=== PATIENT | male | born 1930 | race Caucasian/White ===

== ENCOUNTER 2016-10-05 06:19 | Observation (INO) | payer OTHER ==
[2016-09-23 11:26] VITALS: BMI 26.0
--- NOTE | 2016-09-23 12:25 | PAT Medication Instructions ---
Service Date Sep 23, 2016. Current Home Medication List Aspirin (Aspirin Tab-Chewable *), 81 MG PO HS Aspirin (Aspirin), 1 TAB PO QAM Carvedilol (Coreg), 3.125 MG PO BID Cyanocobalamin (Vitamin B-12), 1,000 MCG PO QAM Lisinopril (Prinivil), 2.5 MG PO QAM Pantoprazole (Protonix), 40 MG PO QAM Simvastatin (Zocor), 20 MG PO QPM [Vitamin D3], 1,000 UNITS PO QAM Medication Instructions For Your Scheduled Surgery - Hold the following medications the morning of surgery: [Vitamin D3], 1,000 UNITS PO QAM Cyanocobalamin (Vitamin B-12), 1,000 MCG PO QAM Lisinopril (Prinivil), 2.5 MG PO QAM Carvedilol (Coreg), 3.125 MG PO BID Aspirin (Aspirin), 1 TAB PO QAM - Take the following medications the morning of surgery with a sip of water OTHERWISE NOTHING TO EAT OR DRINK AFTER MIDNIGHT: Pantoprazole (Protonix), 40 MG PO QAM - Take the following medications as scheduled the night before surgery: Simvastatin (Zocor), 20 MG PO QPM Carvedilol (Coreg), 3.125 MG PO BID Aspirin (Aspirin Tab-Chewable *), 81 MG PO HS If you have any questions please call us at [phone] or [phone] or [phone]
[2016-09-23 14:26] LABS: HEMATOCRIT 43.5 % (42-52); MEAN CORPUSCULAR HEMOGLOBIN 30.3 pg (25-34); MEAN CORPUSCULAR HGB CONC 33.3 g/dl (32-36); MEAN PLATELET VOLUME 10.2 fL (7.4-10.4); PLATELET COUNT 235 K/uL (130-400); RED BLOOD COUNT 4.78 M/uL (4.7-6.1); WHITE BLOOD COUNT 4.96 K/uL (4.8-10.8)
[2016-09-23 14:36] LABS: BUN/CREATININE RATIO 13.1 (10-20); CREATININE 1.4 mg/dl (0.60-1.40); POTASSIUM 4.5 mmol/L (3.5-5.1)
[2016-09-23 14:39] LABS: INR 1.1 (0.9-1.1); PARTIAL THROMBOPLASTIN RATIO 1.1; PROTHROMBIN TIME (PATIENT) 11.9 SECONDS (9.0-12.0)
[2016-09-23 14:54] LABS: CALCIUM 9.4 mg/dl (8.5-10.1)
[2016-10-05] VITALS (8 sets, daily range): BP systolic 101–169; BP diastolic 59–96; PULSE 49–96; TEMP 36.5–37.4; O2SAT 90–99; Ht 182.9 cm; Wt 84.9 kg
[~2016-10-05] VITALS: Ht 182.9 cm; Wt 84.9 kg
[~2016-10-05 06:19] MED LIST: ASPCH81 PO; ASPI-470 PO; CARV3.122 PO; CEFAZOLIN 2000 MG/60 ML D5W IV SCH; CYAN10005 PO; LACTATED RINGER'S 1000ML 1,000 ML IV SCH; LISI-729 PO; PANT40TA PO; SIMV20TA2 PO; VITAMIN D3 PO
--- NOTE | 2016-10-05 07:46 | HISTORY & PHYSICAL EXAMINATION ---
DATE OF ADMISSION: 10/05/2016 HISTORY OF PRESENT ILLNESS: This is an 86-year-old gentleman, who has been having more dyspnea on exertion and lower extremity edema. He denies any lightheadedness and dizziness since cutting back his Coreg. He has nonischemic cardiomyopathy with an ejection fraction drop into 23%, left bundle branch block and he has been referred for biventricular device. PAST MEDICAL HISTORY: Nonischemic cardiomyopathy, left bundle branch block, chronic systolic congestive heart failure, [place] Heart Association class 3, sinus bradycardia, chronic kidney disease stage 3, hypertension, hyperlipidemia, abdominal aortic aneurysm, mixed Alzheimer's dementia, hereditary hemochromatosis and hearing loss. PAST SURGICAL HISTORY: Tonsils and adenoidectomy. CURRENT MEDICATIONS: Carvedilol 3.125 mg twice a day, Protonix, simvastatin, lisinopril, aspirin, vitamin D, vitamin B12 and Tylenol. ALLERGIES: No known drug allergies. FAMILY HISTORY: Noncontributory. SOCIAL HISTORY: He is a former tobacco smoker. No alcohol use. REVIEW OF SYSTEMS: All other 10 point review of systems were reviewed and essentially negative at this time. See HPI for pertinent positives. PHYSICAL EXAMINATION: VITAL SIGNS: Blood pressure 169/86, heart rate 48. GENERAL: He is awake, alert and oriented x3, in no acute distress, sitting up on the stretcher. HEENT: Normocephalic, atraumatic. Extraocular motions are intact. Sclerae is nonicteric. Mucous membranes are moist. NECK: Supple, no carotid bruits appreciated. No JVD. CARDIOVASCULAR: Normal S1, S2. Regular rhythm, bradycardic, extrasystole are present, no murmurs appreciated. Pulses are intact. PULMONARY: Clear to auscultation bilaterally. No wheezes, rales or rhonchi. ABDOMEN: Positive bowel sounds, soft, nontender, nondistended. EXTREMITIES: No clubbing or cyanosis in bilateral fingers. Trace lower extremity edema. NEUROLOGIC: Grossly intact. SKIN: Grossly intact. PERTINENT TESTING: EKG on 08/26/2016; sinus layton at 45 beats per minute, first degree AV block and left bundle branch block. EKG on 02/04/2016; sinus layton 66 beats per minute, first degree AV block, PVCs, QRS 154 milliseconds. Echocardiogram in July 2016; patient with sinus layton with frequent PVCs. His ejection fraction was 23%, left atrium severely enlarged, mild aortic valvular sclerosis, but no stenosis, moderate MR, mild TR, moderate pulmonary hypertension with pulmonary artery systolic pressure 50-55. Holter monitor in August 2016; sinus with bundle branch block and PVCs, two short runs of PAT; the longest was 4 beats. The longest R-R interval was 2 seconds. Cardiac catheterization in 2010; left main was okay, LAD mid 50%, distal 30%, OM1 60%, RCA with luminal irregularities. Most recent CBC is unremarkable, it was in last month. CMP; BUN 18, creatinine 1.5, sodium 142, potassium 4.3, chloride 105, carbon dioxide 25 and glucose 113. IMPRESSION: 1. Nonischemic cardiomyopathy diagnosed years recovered with medications but medications stopped due to bradycardia, and now with an ejection fraction drop to 23%. 2. Left bundle branch block. 3. Chronic systolic heart failure, [place] Heart Association class 3. 4. Sinus bradycardia. 5. Chronic kidney disease stage 3. 6. Hypertension. 7. Hyperlipidemia. 8. Abdominal aortic aneurysm. 9. Alzheimer's disease. 10. Hereditary hemochromatosis Recommend a biventricular device. The patient wishes to do a pacemaker. He understands the risks of the procedure which include; but not limited to sudden cardiac , cardiac arrhythmias, cerebrovascular accident, myocardial infarction, injury to the blood vessels, chamber of the heart, bleeding and infection. KAVITA
[2016-10-05] MEDS ORDERED: BUPIVACAINE 0.5 % 5 MG/1 ML MPF 30ML VIAL ONE (07:57)
[2016-10-05] MEDS ORDERED: MIDAZOLAM HCL 1 MG/ML 2ML VIAL ONE (07:57)
[2016-10-05] MEDS ORDERED: LIDOCAINE HCL 1% 20 ML VIAL ONE (07:57)
[2016-10-05] MEDS ORDERED: FENTANYL CITRATE INJ 50 MCG/1 ML 2 ML VIAL ONE ×3 (07:57→11:09)
[2016-10-05] MEDS ORDERED: PROPOFOL IV EMULSION 10 MG/ML 20 ML VIAL IV ONE (07:57)
[2016-10-05] MEDS ORDERED: KETAMINE HCL INJ 50 MG/ML 10 ML VIAL ONE (07:58)
[2016-10-05] MEDS ORDERED: PROPOFOL IV EMULSION 10 MG/ML 100 ML VIAL IV ONE (08:25)
[2016-10-05] MEDS ORDERED: BACITRACIN 50000 UNIT VIAL ONE (08:44)
[2016-10-05] MEDS ORDERED: ACETAMINOPHEN/CODEINE 300/30MG TAB PO PRN (12:00)
[2016-10-05] MEDS ORDERED: ACETAMINOPHEN 325 MG TAB PO PRN (12:00)
[2016-10-05] MEDS ORDERED: ATROPINE SULFATE 0.1 MG/ML 5ML SYR IV PRN (12:15)
[2016-10-05] MEDS ORDERED: FENTANYL CITRATE INJ 50 MCG/1 ML 2 ML VIAL IV PRN (12:15)
[2016-10-05] MEDS ORDERED: ONDANSETRON INJ 2 MG/ML 2 ML VIAL IV PRN (12:15)
[2016-10-05] MEDS ORDERED: LABETALOL HCL IV 5 MG/ML 20ML IV PRN (12:15)
--- NOTE | 2016-10-05 12:15 | Discharge Instructions ---
Discharge Instructions Date of Service Oct 05, 2016. Admission Reason for Admission: Non Ischemic Cardiomyopathy; Lt Bundle Branch Bloc Discharge Discharge Diagnosis / Problem: NICM Discharge Goals Goal(s): Improve function Activity Recommendations Activity Limitations: as noted below Lifting Limitations: no more than 10 pounds (DO NOT LIFT THE LEFT ELBOW OVER THE LEFT SHOULDER FOR 1 MONTH DO NOT LIFT MORE THAN 10 POUNDS WITH THE LEFT ARM FOR 2 WEEKS) Shower/Bathe: tomorrow Driving or Machine Use: resume 1 day after discharge . Instructions / Follow-Up Instructions / Follow-Up ACTIVITY RECOMMENDATIONS: * Do not raise affected arm over head for 4 weeks. SPECIAL CARE INSTRUCTIONS: * If bleeding occurs, apply direct pressure to area for 5 minutes. * Call your doctor if you have severe pain, fever, drainage or bleeding at site. * Keep dry for 24 hours. * Keep any scheduled doctor's appointment. * Implant Card - hand held device with website information given. SKIN IRRITATION: * You may experience some redness and/or swelling in the area where radiation was administered. If any skin irritation occurs, please contact your family physician. FOLLOW UP VISIT: Keep any scheduled doctor appointments. Current Hospital Diet Patient's current hospital diet: AHA Diet (Heart Healthy), Low Sodium Diet (2gm Na) Discharge Diet Recommended Diet: AHA Diet (Heart Healthy), Low Sodium Diet (2gm Na) Procedures Procedures Performed: BIVENTRICULAR PERMANENT PACEMAKER Pending Studies Studies pending at discharge: no Medical Emergencies . Who to Call and When: Medical Emergencies: If at any time you feel your situation is an emergency, please call 911 immediately. . Non-Emergent Contact Non-Emergency issues call your: [employer] . . "Provider Documentation" section prepared by Annie Williamson. . VTE Core Measure Inpt VTE Proph given/why not?: Treatment not indicated
--- NOTE | 2016-10-05 12:19 | Discharge Summary ---
Discharge Summary Date of Service Oct 05, 2016. Discharge Summary Admission Date: Discharge Date: Oct 06, 2016 Discharge Disposition: Home Principal Diagnosis: NICM S/P BIVENTRICULAR PACEMAKER Secondary Diagnoses/Problems: 1. LBBB 2. Chronic systolic HF, NYHA Class III 3. Marked Sinus bradycardia 4. HTN 5. HLD 6. AAA 7. CKD stage III 8. Alzheimer dementia 9. Hereditary Hemochromatosis Procedures: biventricular permanent pacemaker under fluoroscopic guidance with peripheral venogram Medication Reconciliation New Medications: Carvedilol (Carvedilol) 3.125 Mg Tab 6.25 MG PO BID for 30 Days, #120 TAB Continued Medications: Aspirin (Aspirin Tab-Chewable *) 81 Mg Chew 81 MG PO HS, 0 Refills Cyanocobalamin (Vitamin B-12) 1,000 Mcg Tab 1000 MCG PO QAM, 0 Refills Lisinopril (Prinivil) 5 Mg Tab 2.5 MG PO QAM, TAB Pantoprazole (Protonix) 40 Mg Tab 40 MG PO QAM, #30 TAB Simvastatin (Zocor) 20 Mg Tab 20 MG PO QPM, 0 Refills [Vitamin D3] () 1000 UNITS PO QAM Discontinued Medications: Aspirin (Aspirin) 325 Mg Tab 1 TAB PO QAM Carvedilol (Coreg) 3.125 Mg Tab 3.125 MG PO BID, TAB takes with breakfast and lunch Admission Information Physical Exam (per Admitting): aaox3, NAD NC/AT, EOMI Supple, No JVD Bradycardic, NRL S1/S2 CTA b/l no w/r/r soft NT/ND No edema b/l No focal deficits skin intact Hospital Course Pt admitted for elective biventricular pacemaker implant. Underwent procedure without any complications; monitored overnight and discharged home in stable condition. Total time spent on discharge = This includes examination of the patient, discharge planning, medication reconciliation, and communication with other providers. Discharge Instructions ACTIVITY RECOMMENDATIONS: * Do not raise affected arm over head for 4 weeks. SPECIAL CARE INSTRUCTIONS: * If bleeding occurs, apply direct pressure to area for 5 minutes. * Call your doctor if you have severe pain, fever, drainage or bleeding at site. * Keep dry 24 hours then remove. * Keep any scheduled doctor's appointment. * Implant Card - hand held device with website information given. SKIN IRRITATION: * You may experience some redness and/or swelling in the area where radiation was administered. If any skin irritation occurs, please contact your family physician. FOLLOW UP VISIT: Keep any scheduled doctor appointments.
[2016-10-05] MEDS ORDERED: CRG3125 PO (12:20)
--- NOTE | 2016-10-05 13:34 | Anesthesiology Progress Note ---
Anesthesia Post Op Note Date & Time Oct 05, 2016 at 13:34 Vital Signs Pain Intensity: 0 Vital Signs Past 12 Hours Date Time Temp Pulse Resp B/P (MAP) Pulse Ox O2 Delivery O2 Flow Rate FiO2 10/05/16 12:45 Room Air 10/05/16 12:45 96 18 157/96 (116) 91 Room Air 10/05/16 12:18 70 18 125/72 (89) 95 Room Air 10/05/16 12:08 70 18 153/102 (119) 99 Mask 6 10/05/16 11:58 72 18 139/97 (111) 98 Mask 6 10/05/16 06:25 36.5 49 20 169/86 (113) 99 Room Air Notes Mental Status: alert / awake / arousable, participated in evaluation Pt Amnestic to Procedure: Yes Nausea / Vomiting: adequately controlled Pain: adequately controlled Airway Patency, RR, SpO2: stable & adequate BP & HR: stable & adequate Hydration State: stable & adequate Anesthetic Complications: no major complications apparent
[2016-10-05] MEDS ORDERED: IV FLUIDS COMPLETED PRN (13:45)
--- NOTE | 2016-10-05 16:27 | OPERATIVE REPORT ---
DATE OF OPERATION: 10/05/2016 PREOPERATIVE DIAGNOSIS: Nonischemic cardiomyopathy, left bundle branch block, chronic systolic heart failure, [place] Heart Association class 3, marked sinus bradycardia. POSTOPERATIVE DIAGNOSIS: Same. PROCEDURE: Biventricular rate responsive permanent pacemaker under fluoroscopic guidance along with peripheral venogram. SURGEON: Dr. Annie Williamson. MILL RECORDER: None. ANESTHESIA: Monitored anesthetic care given via anesthesiology. Total of 2 mg of Versed, 300 mcg of fentanyl, 650 mg of propofol. Again, this was all under anesthesia, so they will do the billing. IV FLUIDS: 1150 mL. CONTRAST: 60 mL. BLOOD LOSS: 50 mL. COMPLICATIONS: None. CONDITION: Stable. URINE OUTPUT: Not applicable. FINDINGS: None. DRAINS: None. INDICATIONS: This is a 86-year-old male with nonischemic cardiomyopathy diagnosed actually years ago and then improved with medications; however, we had to slowly start bringing back medication because sinus bradycardia and now his cardiomyopathy has recurred with EF being 23%, left bundle branch block, chronic systolic heart failure, [place] Heart Association class 3, marked sinus bradycardia, chronic kidney disease stage III, hypertension, hyperlipidemia, abdominal aortic aneurysm, Alzheimer's dementia and hereditary hemochromatosis. The patient was recommended biventricular device. He opted for pacemaker as opposed to the defibrillator due to his advanced age. CONSENT: Consent was obtained prior to patient going into the electrophysiology lab. The patient was informed of risks, benefits and alternatives to the procedure. Risks include but not limited to sudden cardiac , cardiac arrhythmias, cerebrovascular accident, myocardial infarction, injury to the blood vessels, chamber of the heart, lungs, bleeding or infection. The patient understood these risks and agreed to the procedure as planned. Informed consent was obtained. DESCRIPTION OF THE PROCEDURE: The patient was brought into the electrophysiology lab in a fasting state. He was connected to continuous patient monitor. A time out was performed to ensure patient's identity and procedure correctly. The patient was prepped and draped over the left infraclavicular space in normal surgical standard fashion. Monitored anesthetic care was given throughout the procedure for patient's comfort level via anesthesiology. [place] precautions were maintained throughout procedure. He received prophylactic antibiotics prior to incision. Ten mL of 1% lidocaine, bupivacaine mixture were given in the left deltopectoral groove. Incision was made in left deltopectoral groove. Blunt dissection was performed down to identify the cephalic vein. The cephalic vein was isolated using 0 silk ties. A peripheral venogram was performed using 10 mL of IV contrast diluted in 10 mL of saline followed by 20 mL flush to identify the axillary vein. Axillary vein was obtained via a venous stick and a guidewire was inserted without any resistance. I then went back to the cephalic vein, nicked it with an 11 blade and inserted guidewire without any resistance. A 7-Samoan long sheath was inserted over the guidewire without any resistance. I used long sheath since the vein was kind of torturous. The dilator was removed and a second guidewire was inserted through the 7-Samoan sheath without any resistance. The sheath was removed and an 8-Samoan short sheath was inserted over one of the guidewires in the cephalic vein without any resistance. The guidewire and dilator were removed. The right ventricular pacing lead was then advanced into the right ventricle and positioned into the right ventricular apex under fluoroscopic guidance. There was adequate pacing and sensing thresholds and no diaphragmatic stimulation with high output pacing. The 8-Samoan sheath was peeled away and lead was fixated to the pectoralis muscle using 0 silk sutures. A second 8-Samoan sheath was inserted over the retained guidewire and the cephalic vein, guidewire and dilator were removed. A right atrial pacing lead was advanced into the right atrium and positioned atrial appendage. Initially, with preformed blue J then ultimately got in with nelson J. There was adequate pacing and sensing thresholds and no diaphragmatic stimulation with high output pacing. The 8-Samoan sheath was peeled away and lead was fixated to pectoralis muscle using 0 silk suture. A 9.5-Samoan sheath was then inserted over the retained guidewire via the axillary vein. The guidewire and dilator removed. Initially we used an MPX command outer sheath and advanced that into the right atrium, removed the dilator and guidewire and then used a diagnostic EP coronary sinus quadripolar Decapolar catheter to get into the CS. There was a sharp acute takeoff from the RA to the CS and it actually looked like there may have a bail-out branch very low. I had a difficult time getting the Medtronic MPX command sheath advanced over the EP diagnostic catheters so I ended up switching that out to an extended hook. We did a peripheral venogram in MACEDONIAN, CHAVEZ and AP and found posterolateral branch but there was an acute angle takeoff. I tried to cannulate it with a Whisper wire as well as using an inner 90 sheath, but I could not and ultimately I ended up moving coronary sinus accessed and ended up finding that bailout branch and used that instead. The lead was advanced through the outer extended hook sheath into the bailout branch with a stylette in the lead. I then also took the stylet out and used a Whisper wire through the lead to see if the branch went out any further, it did not. We had adequate pacing and sensing thresholds and no diaphragmatic stimulation. During trying to get the coronary sinus, the right atrial lead did dislodged, so I left the sheath fall in for the LV pacing lead and went back to the RA lead. I removed the sutures from the suture sleeve and repositioned the right atrial lead with adequate pacing and sensing thresholds and resutured it down using 0 silk suture. I then went back to the LV lead and slit the extended hook outer sheath under fluoroscopic guidance, followed then by peeled away and split 9.5-Samoan outer sheath under fluoroscopic guidance. The LV lead was then fixated to the pectoralis muscle using 0 silk suture. There was some backbleeding and so I did have pursestring through both venipuncture sites. I then gave another 10 mL of 1% lidocaine, bupivacaine mixture in the pectoralis fascia then using blunt dissection created the pacemaker pocket within the pectoralis fascia over the pectoralis muscle, flushed the pocket with copious amounts of bacitracin saline wash and inspected for hemostasis. The pulse generator was then attached to the leads making sure that the pins were in appropriate position, passed the set screws and the set screws were all tightened. The pulse generator was then placed in the pocket, making sure that the leads were lying flat beneath the device. A stay stitch using 0 silk suture was used to secure the device to the pectoralis muscle. I did put Aristastat in the pocket to prevent any further oozing and the incision was then closed in 3-layer fashion, 2-0 Vicryl suture followed by a 3-0 Vicryl suture followed by a 4-0 Monocryl running stitch. Dermabond was applied followed then by a pressure dressing. EQUIPMENT: 1. Pulse generator is a [employer]look [id number], serial #[id number]. 2. Right atrial lead Medtronic 5076-52 cm, serial #[id number]. 3. Right ventricular lead Medtronic 5076-58 cm, serial #[id number]. 4. Left ventricular lead Medtronic 4296-88 cm, serial #[id number]. INTRAOPERATIVE TESTIN. Right atrial lead P-waves 4.9 millivolts, impedance 537 ohms, threshold 0.6 volts at 1.1 milliamps. 2. Right ventricular lead R-waves 8.9 millivolts, impedance 411 ohms, threshold 0.4 volts at 0.3 milliamps. 3. Left ventricular lead programmed bipolar LV tip to LV ring, impedance 980 ohms, threshold 1.4 volts at 1.6 milliamps. FINAL MEASUREMENTS THROUGH THE DEVICE 1. Right atrial lead: P-waves 4.4 millivolts, impedance 418 ohms, threshold 0.5 volts at 0.4 milliseconds. 2. Right ventricular lead: R-waves 11.8 millivolts, impedance 741 ohms, threshold 0.5 volts at 0.4 milliseconds. 3. LV lead program bipolar LV tip to LV ring, impedance 798 ohms, threshold 1.75 volts at 0.4 milliseconds. FINAL PARAMETERS: 1. DDDR 60/130. Right atrial amplitude 3.5 volts, pulse width 0.4 milliseconds, sensitivity 0.3 millivolts. 2. Right ventricular amplitude 3.5 volts, pulse width 0.4 milliseconds, sensitivity 0.9 millivolts 3. Left ventricular amplitude 4, pulse width 0.4. IMPRESSION: Successful implantation rate responsive biventricular permanent pacemaker under fluoroscopic guidance secondary to nonischemic cardiomyopathy, left bundle branch block, chronic systolic congestive heart failure, [place] Heart Association class 3, sinus bradycardia. PLAN: Monitor patient overnight, 12-lead ECG, chest x-ray. He can continue his home medications. We will increase his carvedilol to 6.25 now that he has a pacemaker. He is not allowed to lift the left elbow over the left shoulder for 1 month and cannot lift more than 10 pounds with the left arm for 2 weeks. He can shower tomorrow, let water run over the incision, do not scrub it. He should follow up in our [facility] office for device check in 7-10 days. I attest to the content of the Intraoperative Record and any orders documented therein. Any exceptions are noted below. KAVITA
--- NOTE | 2016-10-05 16:46 | [facility] Post Operative Brief Note ---
Immediate Operative Summary Operative Date Oct 05, 2016. Pre-Operative Diagnosis nicm, lbbb, chronic systolic HF Post-Operative Diagnosis oren Procedure(s) Performed BIVENTRICULAR PERMANENT PACEMAKER Surgeon silvestre williamson [employer] Supervisor Surgeon(s) none Estimated Blood Loss 50cc Findings none Fluids (cc crystalloids) 1155cc Specimens none Drains none Anesthesia 2mg versed, 300mcg fentanyl, 650mg propofol Complication(s) None Disposition PCU
[2016-10-05] MEDS: CARVEDILOL 6.25 MG TAB PO SCH (20:33)
[2016-10-05] MEDS ORDERED: SIMVASTATIN 20 MG TAB PO SCH (21:00)
[2016-10-05] MEDS ORDERED: ASPIRIN 81 MG ECTAB PO SCH (21:00)
[2016-10-06 03:55] VITALS: BP 135/66; PULSE 69; TEMP 37.3; O2SAT 90
--- NOTE | 2016-10-06 07:45 | DIAGNOSTIC IMAGING REPORT ---
CHEST 2 VIEWS ROUTINE HISTORY: EXACT TIME ORDERED Evaluate for pneumothorax and lead placement COMPARISON: Chest 02/05/2011. FINDINGS: Interval placement left-sided pacemaker. The leads appear intact. No pneumothorax. The cardiac silhouette is top normal in size. This has improved. Left basilar linear densities consistent with subsegmental atelectasis. No evidence for pulmonary edema. Trace bilateral pleural effusions. IMPRESSION: Interval placement left-sided pacemaker. The leads are intact. No pneumothorax. Trace bilateral pleural effusions. Electronically signed by: Harshal Motley M.D. 10/06/2016 7:44 AM Dictated Date/Time: 10/06/2016 7:42 AM
[2016-10-06] MEDS: CARVEDILOL 6.25 MG TAB PO SCH (07:48)
[2016-10-06 07:54] VITALS: BP 134/77; PULSE 62; TEMP 36.8; O2SAT 93
--- NOTE | 2016-10-06 08:39 | Cardiology Follow-Up ---
Subjective Subjective Date of Service: Oct 06, 2016. Pt evaluation today including: conversation w/ patient, physical exam, chart review, lab review Pain: none Review of Systems Constitutional: No fever, No fatigue Respiratory: No dyspnea on exertion, No dyspnea at rest Cardiac: No chest pain, No edema Abdomen: No diarrhea Endo: No fatigue Objective Vital Signs Last Vital Signs Documentation Date Time Temp Pulse Resp B/P (MAP) Pulse Ox O2 Delivery O2 Flow Rate FiO2 10/06/16 07:54 36.8 62 16 134/77 (96) 93 Room Air 10/05/16 12:08 6 Physical Exam: General Appearance: WD/WN Eyes: bilateral eyes PERRL, bilateral eyes EOMI Neck: supple, no JVD Respiratory/Chest: lungs clear, normal breath sounds Cardiovascular: regular rate, rhythm, no edema, no murmur Abdomen: normal bowel sounds, non tender Extremities: no pedal edema Neurologic/Psychiatric: alert Skin: warm/dry, no rash (left pectoral incision intact, no hematoma, mild ecchymosis) Assessment and Plan Impression: 1. NICM s/p BiV ppm 10/05/2016 2. LBBB 3. Chronic systolic HF, NYHA Class III 4. HTN 5. HLD Plan: -Ok for discharge home today -Continue home medications -Not allowed to left the left elbow over the left shoulder for 1 month and no lifting more than 10 pounds with the left arm for 2 weeks -Wound and device check in 7-10 days in [facility] device clinic -can shower tomorrow Discharge planning: home Medications: Medications Administered Medications (Trade) Dose Ordered Sig/Raheel Route Start Time Stop Time Status Last Admin Dose Admin Cefazolin Sodium 60 ml @ 100 mls/hr PREOP IV 10/05/16 06:00 10/05/16 18:00 DC 10/05/16 08:08 100 MLS/HR Acetaminophen (Tylenol Tab) 650 mg Q4H PRN PO 10/05/16 12:00 11/04/16 11:59 10/06/16 06:06 650 MG Carvedilol (Coreg Tab) 6.25 mg BID PO 10/05/16 21:00 11/04/16 20:59 10/05/16 20:33 6.25 MG Simvastatin (Zocor Tab) 20 mg QPM PO 10/05/16 21:00 11/04/16 20:59 10/05/16 20:33 20 MG Lab Results: Telemetry:BiV Paced ECG:BiV Paced CXR: no PTX, RA, RV, LV leads in place PPM Interrogation: Normal function Stable and WNL lead testing from implant
[2016-10-06] MEDS ORDERED: PANTOprazole SOD 40 MG TAB PO SCH (09:00)
[2016-10-06] MEDS ORDERED: CYANOCOBALAMIN 500 MCG TAB (VIT B-12) PO SCH (09:00)
[2016-10-06] MEDS ORDERED: ASPIRIN 81 MG ECTAB PO SCH (09:00)
[2016-10-06] MEDS ORDERED: LISINOPRIL 2.5 MG TAB PO SCH (09:00)
[2016-10-06 09:11] VITALS: BP 134/77; PULSE 62; TEMP 36.8; O2SAT 93
--- NOTE | 2016-10-06 09:24 | Anesthesiology Progress Note ---
Anesthesia Post Op Note Date & Time Oct 06, 2016 at 09:20 Vital Signs Pain Intensity: 0.0 Vital Signs Past 12 Hours Date Time Temp Pulse Resp B/P (MAP) Pulse Ox O2 Delivery O2 Flow Rate FiO2 10/06/16 09:11 36.8 62 16 93 Room Air 10/06/16 08:00 Room Air 10/06/16 07:54 36.8 62 16 134/77 (96) 93 Room Air 10/06/16 04:00 Room Air 10/06/16 03:55 37.3 69 18 135/66 (89) 90 Room Air 10/06/16 00:00 Room Air 10/05/16 23:41 37.2 78 16 117/68 (84) 90 Room Air Notes Mental Status: alert / awake / arousable, participated in evaluation Anesthetic Complications: no major complications apparent
== END 2016-10-06 10:13 | disposition home or self-care (01) ==
LOC: C.ACU 06:19 → ENRESERV 11:49 → C.2T 12:02
PROVIDERS: ADMIT Internal Medicine; ATTEND Internal Medicine
DX: I42.9 Cardiomyopathy, unspecified (principal); I44.7 Left bundle-branch block, unspecified; I50.22 Chronic systolic (congestive) heart failure; R00.1 Bradycardia, unspecified; I12.9 Hypertensive chronic kidney disease with stage 1 through stage 4 chronic kidney disease, or unspecified chronic kidney disease; E78.5 Hyperlipidemia, unspecified; I71.4 Abdominal aortic aneurysm, without rupture; N18.3 Chronic kidney disease, stage 3 (moderate); G30.9 Alzheimer's disease, unspecified; F02.80 Dementia in other diseases classified elsewhere, unspecified severity, without behavioral disturbance, psychotic disturbance, mood disturbance, and anxiety; E83.110 Hereditary hemochromatosis; Z79.82 Long term (current) use of aspirin

== ENCOUNTER 2018-07-17 14:06 | Inpatient (IN) ==
[2018-07-17] MEDS ORDERED: SODIUM CHLORIDE 0.9% 1000ML 1,000 ML IV SCH (14:30)
[2018-07-17 14:45] LABS: Basophils # (auto) 0.01 K/uL (0-0.2); Basophils % (auto) 0.1 %; Hematocrit (blood only) 47.7 % (42-52); Hemoglobin 16.6 g/dL (14.0-18.0); Immature Granulocytes # (auto) 0.04 K/uL (0.00-0.02); Immature Granulocytes % (auto) 0.3 %; Lymphocytes # (auto) 0.97 K/uL (1.2-3.4); Lymphocytes % (auto) 7.9 %; Mean Corpuscular Hgb Conc 34.8 g/dL (32-36); Mean Corpuscular Volume 90.2 fL (80-100); Mean Platelet Volume 10.1 fL (7.4-10.4); Monocytes # (auto) 0.66 K/uL (0.11-0.59); Monocytes % (auto) 5.4 %; Neutrophils # (auto) 10.58 K/uL (1.4-6.5); Neutrophils % (auto) 86.3 %; Platelet Count 201 K/uL (130-400); RDW Coefficient of Variation 13.3 % (11.5-14.5); RDW Standard Deviation 43.9 fL (36.4-46.3); Red Blood Count 5.29 M/uL (4.7-6.1); White Blood Count 12.26 K/uL (4.8-10.8)
--- NOTE | 2018-07-17 15:05 | CT Scan Report ---
CT SCAN OF THE BRAIN WITHOUT IV CONTRAST CLINICAL HISTORY: Fall. COMPARISON STUDY: MRI of the brain dated 03/01/2007. TECHNIQUE: Unenhanced axial CT scan of the brain is performed from the vertex to the skull base. A do se lowering technique was utilized adhering to the principles of ALARA. CT DOSE: 1113.68 mGy.cm FINDINGS: Brain parenchyma: There are age-related involutional changes noting mild subcortical and periventric ular microangiopathic change. A chronic lacunar infarct is identified in the left cerebellar hemisphe re. There is a 6 mm hyperdense focus identified in the right cerebellum seen on image #6. There is no mass effect or evidence of acute territorial ischemia by CT criteria. Roach-white matter differentiat ion is preserved. No extra-axial fluid collection is seen. Ventricles, sulci, cisterns: Prominent secondary to involutional change. Intracranial vasculature: There is atherosclerotic calcification of the cavernous carotid and vertebr al arteries. Calvarium: The skeletal structures are osteopenic. No depressed calvarial fracture is identified. Sinuses and mastoids: There is mucosal thickening with subtotal opacification of the right frontal si nus. Thickening is also seen within the anterior right ethmoid sinuses. The remaining paranasal sinus es are clear. The mastoid air cells are well pneumatized. Orbits: The bony orbits are grossly intact. IMPRESSION: 1. There is a 6 mm hyperdense focus identified within the right cerebellar hemisphere. This is indete rminant and concerning for a small focus of hemorrhage. 24 hour follow-up is recommended for reassess ment. 2. No additional findings are concerning for acute hemorrhage. There is no mass effect or evidence of acute territorial ischemia by CT criteria. Electronically signed by: Evangelista Almaraz M.D. 07/17/2018 3:04 PM
[2018-07-17 15:06] LABS: Albumin Level 3.3 gm/dl (3.4-5.0); BUN Creatinine Ratio 17.5 (10-20); Calcium 9.3 mg/dl (8.5-10.1); Creatinine Clr Calc Pharmacy 38.3 ml/min; Est GFR (African American) 48.2; Est GFR (Non-African American) 41.6; Potassium 4.3 mmol/L (3.5-5.1)
--- NOTE | 2018-07-17 15:13 | CT Scan Report ---
CT SCAN OF THE CERVICAL SPINE CLINICAL HISTORY: Trauma. Fall. COMPARISON STUDY: No priors. TECHNIQUE: CT scan of the cervical spine is performed from the skull base to the upper thoracic spine . Images are reviewed in the axial, sagittal, and coronal planes. IV contrast was not administered fo r this examination. A dose lowering technique was utilized adhering to the principles of ALARA. FINDINGS: Skeletal structures: The skeletal structures are osteopenic. There is no evidence of fracture or subl uxation involving the cervical spine. Vertebral body height and alignment are maintained. There is p artial fusion of C5, C6, and C7. The odontoid process and lateral masses are intact. The atlantoaxial articulation is preserved noting advanced productive degenerative change. The spinous processes appe ar intact. There is moderate multilevel cervical spondylosis. Uncovertebral and facet arthropathy con tribute sterile foraminal stenosis at several levels. Intervertebral discs: There is moderate multilevel degenerative disc space narrowing. Central canal: Grossly patent. Soft tissues: The prevertebral and paraspinous soft tissues are within normal limits. Pacemaker leads are noted in the left axillary region. Atherosclerotic calcification is noted in the carotid bulbs. Calvarium: The visualized calvarium at the skull base appears intact. Brain parenchyma: There is a subcentimeter hyperdense focus identified in the right cerebellar hemisp here. Age-related involutional change is noted. Sinuses and mastoids: The visualized paranasal sinuses are clear. There are trace mastoid effusions. Lung apices: Clear as visualized. IMPRESSION: 1. There is no evidence of fracture or subluxation involving the cervical spine. 2. Osteopenia and spondylotic change as above. 3. A subcentimeter hyperdense focus is seen in the right cerebellar hemisphere. A small focus of hemo rrhage is not excluded. See report of CT of the brain performed concurrently for detailed intracrania l findings. Electronically signed by: Evangelista Almaraz M.D. 07/17/2018 3:11 PM
[2018-07-17 15:19] LABS: Appearance Urine Clear (Clear); Bacteria Urine Automated Negative (Negative); Bilirubin Urine Negative (Negative); Blood Urine 3+ (Negative); Color Urine Yellow; Epithelial Cell Urine Auto 0-5 /lpf (0-5); Glucose Urine UA Negative (Negative); Ketones Urine Trace (Negative); Leukocyte Esterase Urine Negative (Negative); Nitrite Urine Negative (Negative); Protein Urine 1+ (Negative); RBC Urine Automated 0-4 /hpf (0-4); Specific Gravity Urine 1.023 (1.000-1.030); Urobilinogen Urine Negative (Negative)
[2018-07-17 15:35] LABS: Albumin Globulin Ratio 0.7 (0.9-2); Bilirubin,Total 2.1 mg/dl (0.2-1); Globulin 4.4 gm/dl (2.5-4.0); Total Protein 7.7 gm/dl (6.4-8.2); Troponin I 0.091 ng/ml (0-0.045)
--- NOTE | 2018-07-17 17:18 | XRay Report ---
RIGHT KNEE 2 VIEWS HISTORY: Right knee pain. fall, trauma COMPARISON: None. FINDINGS: There is no fracture or dislocation. No knee effusion. Focal anterior soft tissue swelling which could represent a hematoma. This measures 6.8 cm in size. Moderate cartilage space narrowing wi thin the medial compartment the knee. Faint chondrocalcinosis. The bones are osteopenic. No radiopaqu e foreign bodies. IMPRESSION: No fractures. Focal anterior soft tissue swelling which could represent a subcutaneous hematoma. This measures 6.8 cm. Electronically signed by: Harshal Motley M.D. 07/17/2018 5:16 PM
--- NOTE | 2018-07-17 17:19 | XRay Report ---
THORACIC SPINE 3 VIEWS HISTORY: Back pain. fall, trauma COMPARISON: None. FINDINGS: There is no fracture. No subluxation. Mild discharge scoliosis of the thoracic spine. Para spinal soft tissues are unremarkable. Moderate degenerative disease throughout the thoracic spine. IMPRESSION: No fracture or subluxation within the thoracic spine. Electronically signed by: Harshal Motley M.D. 07/17/2018 5:18 PM
--- NOTE | 2018-07-17 17:21 | XRay Report ---
XR chest 1V portable HISTORY: Fall. weakness COMPARISON: Chest 02/05/2011. FINDINGS: The heart remains enlarged. The lungs are clear. No pleural effusions. No pneumothorax. Lef t-sided pacemaker is again noted. No acute rib fractures. IMPRESSION: Stable cardiomegaly. No acute process within the chest. Electronically signed by: Harshal Motley M.D. 07/17/2018 5:19 PM
--- NOTE | 2018-07-17 17:23 | XRay Report ---
LUMBAR SPINE 3 VIEWS HISTORY: Low back pain. fall, trauma COMPARISON: None. FINDINGS: There is no fracture. No subluxation. The bones are osteopenic. The sacrum appears intact. Moderate to space narrowing at L4-L5 and L5-S1. Mild to moderate facet degenerative changes througho ut the lumbar spine. IMPRESSION: No fracture or subluxation within the lumbar spine. Electronically signed by: Harshal Motley M.D. 07/17/2018 5:22 PM
--- NOTE | 2018-07-17 17:25 | XRay Report ---
SINGLE VIEW PELVIS CLINICAL HISTORY: Fall. FINDINGS: 2 AP supine abdominal radiograph obtained. No prior studies are available for comparison at the time of dictation. The skeletal structures are osteopenic. No fracture is identified involving t he hips or bony pelvis. Moderate arthritic change and joint space narrowing is seen in the hips, righ t greater than left. Lumbosacral spondylosis is partially imaged. There is mild degenerative sclerosi s of the sacroiliac joints. The overlying soft tissues are normal in appearance. Atherosclerotic calc ification is seen in the femoral arteries. Pelvic phlebolith are observed. No bowel obstruction is id entified. IMPRESSION: No acute fracture is identified involving the hips or bony pelvis. Electronically signed by: Evangelista Almaraz M.D. 07/17/2018 5:24 PM
--- NOTE | 2018-07-17 17:51 | History & Physical Report ---
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 In ED patient was found to have elevated creatinine kinase 6490, elevated troponin 0.091, bilirubin to 2.1, AST 152, BUN/creatinine 26 and 1.49, WBC 12.26 Chest x-ray was negative for acute abnormality, urinalysis was negative for infection CT of head was concerning for 6 mm hyperdense right cerebellar lesion questionable small focus of hemorrhage recommending repeat CT in 24 hours. He underwent trauma workup including T-spine x-ray, L-spine x-ray, pelvis x-ray, knee x-ray, C-spine CT which was negative for acute fracture He does have a notable patellar bursitis however, does not appear to be traumatic; not acutely painful In ED he received 1 L IV fluid -Admit to telemetry -Continue IVF 125 cc/h x3L -Repeat CBC, CMP, CK in a.m. -Trend troponin every 6 hours x2 -Repeat CT of head without contrast in a.m. -We will need to consult PT/OT when appropriate -Case management consulted (4) Abnormal CT of brain: -repeat CT scan of head in am. -Dr. Ryan spoke with [facility] neuro which recommended repeat imaging, no further intervention at this time (5) Leukocytosis: -Likely related to acute fall and rhabdo -No infectious etiology apparent at this time, he is afebrile -Chest x-ray was negative for acute abnormality, urinalysis was negative for infection -will follow (6) Dementia: -Mood stable, no behavioral disturbance (7) Systolic CHF, chronic: -EF 26%, secondary to nonischemic cardiomyopathy -Biventricular pacemaker in place -Euvolemic on exam, monitor volume status closely given rhabdo and need for IVF -Continue Coreg, hold lisinopril and atorvastatin in setting of rhabdo (8) NICM (nonischemic cardiomyopathy): -EF 26%, secondary to nonischemic cardiomyopathy -Biventricular pacemaker in place -Euvolemic on exam -Continue Coreg, hold lisinopril and atorvastatin in setting of rhabdo (9) CKD (chronic kidney disease) stage 3, GFR 30-59 ml/min: -Baseline creatinine 1.41.5 -BUN/creatinine 26 and 1.49 today, despite rhabdo no significant change (10) HTN (hypertension): -Blood pressure stable continue Coreg -Lisinopril in setting of acute rhabdo, reinitiate when appropriate (11) HLD (hyperlipidemia): -Hold atorvastatin in setting of acute rhabdomyolysis along with elevated LFT (12) Cardiac pacemaker in situ: -Pacemaker interrogation ordered (13) Monoclonal paraproteinemia: -Follow hematology oncology (14) DVT prophylaxis: -SCD/teds, avoid chemical prophylaxis in setting of questionable small focus of hemorrhage found on CT Disposition: To be determined, will consult case management as patient does live alone and may need rehab Follow-up: PCP Dr. Crespo upon discharge Patient was seen and examined in collaboration with Dr. Peralta, please see addendum Starting 07/18/18 patient will be under the care of Dr. Roman History of Present Illness Chief Complaint: s/p Fall and found in bathtub x 1 day. 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 Son is at bedside. Son lives across the street and patient was last known well approximately 10:30 PM last evening. Son always calls his father approximately at noon and when he did not answer he went over to evaluate the situation. Patient was found to have fallen in bathtub. When found he appeared to have increased confusion and difficulty getting up. EMS was summoned. Son was able to get patient from bathtub. At the time there appeared to be no apparent injuries. He was then brought to ER for further evaluation. Patient ROS slightly unreliable secondary to underlying dementia and hard of hearing. He currently denies any pain, lightheadedness, dizziness, fever, chills, sweats, chest pain, shortness of breath, nausea, vomiting, diarrhea, abdominal pain. He denies any change in his bowel or urinary habits. He did not lose bowel or bladder today. Patient denies loss of consciousness or hitting of head fall was unwitnessed. Allergies Allergy/AdvReac Type Severity Reaction Status Date / Time No Known Allergies Allergy Unverified 07/17/18 16:01 Home Medications Home Medications Medication Instructions Recorded Confirmed Type carvedilol 6.25 mg PO BID 07/17/18 07/17/18 History cholecalciferol (vitamin D3) 1,000 unit PO DAILY 07/17/18 07/17/18 History cyanocobalamin (vitamin B-12) 1,000 mcg PO QAM 07/17/18 07/17/18 History lisinopril 2.5 mg PO DAILY 07/17/18 07/17/18 History simvastatin 20 mg PO DAILY 07/17/18 07/17/18 History Past Med/Surg History Medical History Systolic CHF, chronic (Chronic) AAA (abdominal aortic aneurysm) (Chronic) 4.3cm, stable, follows vasc, no surgical intervention at this time Monoclonal paraproteinemia (Chronic) CKD (chronic kidney disease) stage 3, GFR 30-59 ml/min (Chronic) baseline cr 1.4 Hereditary hemochromatosis (Chronic) HLD (hyperlipidemia) (Chronic) HTN (hypertension) (Chronic) Dementia (Chronic) NICM (nonischemic cardiomyopathy) (Chronic) Surgical History History of tonsillectomy (Chronic) History of cardiac pacemaker (Chronic) Family History Other Family history non-contributory Social History Preferred Language: Israeli Communication Ability: Impaired Communication Ability Comment: dementia Hearing Ability: Hard of Hearing Current Living Situation: Alone Current Living Situation Comment: Son lives across street, walks with cane/walker Feels Safe at Home: Yes Smoking Status: Former smoker Hx Alcohol Use: Yes (double shot of bo nightly) Hx Substance Use: No Review of Systems All systems reviewed & are unremarkable except as noted in HPI & below ROS slightly unreliable given pt hx of dementia Physical Exam Vital Signs (Past 24 Hours): Last Vital Signs Temp 36.5 C 07/17/18 14:19 Pulse 80 07/17/18 16:31 Resp 21 07/17/18 16:31 BP 120/61 07/17/18 16:31 Pulse Ox 94 07/17/18 16:32 Physical Exam: Gen: Elderly, Male, Tall, WD/WN, NAD, sitting up in bed, pleasant, conversing easily Head: Normocephalic, Atraumatic Eyes: Sclera normal, no conjunctival injection, PERRLA, EOMI ENT: Hard of hearing, normal pharynx, mucous membranes moist Neck: supple, no adenopathy, No JVD, no bruit, Resp: Clear to auscultation b/l, no wheeze, rales, rhonchi. Normal insp/exp effort, no accessory muscle use CV: Regular rate, regular rhythm, 1/6 STELLA noted RUSB, Pacer LACW, no rub, gallop, or ectopy Abd: +BS x 4, soft, nontender, nondistended Musculoskeletal: moves extremities active rom x 4, strength intact, good aluminum pourer strength, + R patellar Bursitis, no erythema or warmth Extremities: No edema bilaterally Skin: warm, moist, no rash, negative turgor, cap refill < 2sec, L Scapula contusion Neuro: Alert and oriented x 3 to basics only, speech normal, good mood/affect, cran nerve 2-12 intact grossly : deferred Results & Data Laboratory Results Short CBC 07/17/18 07/17/18 07/17/18 Range/Units 14:30 14:30 14:30 WBC 12.26 H (4.8-10.8) K/uL Hgb 16.6 (14.0-18.0) g/dL Hct 47.7 (42-52) % Plt Count 201 (130-400) K/uL Creatinine 1.49 H (0.6-1.4) mg/dl Troponin I 0.091 H* Cancelled (0-0.045) ng/ml BMP 07/17/18 14:30 Sodium 142 Potassium 4.3 Chloride 109 H Carbon Dioxide 24 BUN 26 H Creatinine 1.49 H Glucose 106 H Calcium 9.3 Cardiac Enzymes 07/17/18 07/17/18 07/17/18 Range/Units 14:30 14:30 14:30 Total Creatine Kinase Cancelled 6498 H Troponin I 0.091 H* Cancelled (0-0.045) ng/ml Liver Function 07/17/18 Range/Units 14:30 Total Bilirubin 2.1 H (0.2-1) mg/dl AST 152 H (15-37) U/L ALT 45 (12-78) U/L Alkaline Phosphatase 89 (45-117) U/L Albumin 3.3 L (3.4-5.0) gm/dl Urine 07/17/18 Range/Units 15:06 Urine Color Yellow Urine Appearance Clear (Clear) Urine pH 5.0 (4.5-7.5) Ur Specific Purdy 1.023 (1.000-1.030) Urine Protein 1+ H (Negative) Urine Glucose (UA) Negative (Negative) Diagnostic Findings CXR: IMPRESSION: Stable cardiomegaly. No acute process within the chest. Tspine Xray: IMPRESSION: No fracture or subluxation within the thoracic spine. Pelvis Xray: IMPRESSION: No acute fracture is identified involving the hips or bony pelvis. Lumbar Spine Xray: IMPRESSION: No fracture or subluxation within the lumbar spine. Knee Xray: IMPRESSION: No fractures. Focal anterior soft tissue swelling which could represent a subcutaneous hematoma. This measures 6.[address]: IMPRESSION: 1. There is a 6 mm hyperdense focus identified within the right cerebellar hemisphere. This is indeterminant and concerning for a small focus of hemorrhage. 24 hour follow-up is recommended for reassessment. 2. No additional findings are concerning for acute hemorrhage. There is no mass effect or evidence of acute territorial ischemia by CT criteria. Cspine CT: IMPRESSION: 1. There is no evidence of fracture or subluxation involving the cervical spine. 2. Osteopenia and spondylotic change as above. 3. A subcentimeter hyperdense focus is seen in the right cerebellar hemisphere. A small focus of hemorrhage is not excluded. See report of CT of the brain performed concurrently for detailed intracranial findings. Medications Administered Discontinued Medications Sodium Chloride (Nss 1000ml) 1,000 mls @ 999 mls/hr IV .[id number] DILLON Stop: 07/17/18 15:30 Last Infusion: 07/17/18 15:45 Dose: 0 mls/hr Documented by: [id number] Admin: 07/17/18 14:40 Dose: 999 mls/hr Documented by: [id number] Code Status & VTE Plan Code Status Full Code VTE Prophylaxis Plan VTE Prophylaxis will be ordered: Yes Supervising Physician Co-Signing Physician Notes Attending addendum; The patient was seen and examined in emergency room Is an 88-year-old male with dementia and other medical problems as mentioned in history and physical was admitted with a history of fall and was found on floor for many hours No apparent fracture on his clinical summary but CAT scan did show possible contusion in the brain CK level is elevated to more than 6000 Patient denies any symptoms On examination Pleasantly confused No apparent distress at rest Hemodynamically stable Chest-clear Heart-S1-S2, 2/6 ESM precordial Abdomen-benign Extremities-trace edema [employer]-alert and, pleasantly confused, no focal motor deficit Admission labs and imaging studies reviewed Has rhabdomyolysis-getting IV fluid Has [employer] contusion-repeat CT scan of the head Agree with assessment and plan as outlined above by Lorie Peralta (1) Dementia Dementia behavioral disturbance: without behavioral disturbance Dementia type: unspecified type Qualified Code(s): F03.90 - Unspecified dementia without behavioral disturbance (2) HLD (hyperlipidemia) Hyperlipidemia type: unspecified Qualified Code(s): E78.5 - Hyperlipidemia, unspecified (3) Leukocytosis Leukocytosis type: other Qualified Code(s): D72.828 - Other elevated white blood cell count (4) Rhabdomyolysis Encounter type: initial encounter Rhabdomyolysis type: traumatic Qualified Code(s): T79.6XXA - Traumatic ischemia of muscle, initial encounter (5) HTN (hypertension) Hypertension type: essential hypertension Qualified Code(s): I10 - Essential (primary) hypertension (6) Fall Encounter type: initial encounter Qualified Code(s): W19.XXXA - Unspecified fall, initial encounter
--- NOTE | 2018-07-17 18:14 | Emergency Department Note ---
Entered by Prosper Shell acting as a scribe for Evangelista Ryan MD History of Present Illness General Chief complaint: Fall Time Seen by Provider: 07/17/18 14:11 Source: patient and family Limitations: other (dementia) History of Present Illness Onset (ago): day(s) (likely last night) Quality: + other (possible unwitnessed fall) Associated symptoms: + other (bruising to arm, bump on right knee) History is limited due to dementia. The patient is an 88 year old male with dementia who presents to the Emergency Room after a possible fall occurring last night. The son reports that the patient lives at home alone, but he checks on him frequently. He was seen at baseline last night at 22:30, at which time he was not dizzy or unsteady, and he was shuffling as usual. When he checked on him again about two hours prior to a rrival, the patient was lying in the bathtub. It appeared that he had drained the bathtub and fallen backward, as he had new bruising on his arm and a bump on his right knee, although he is unsure if the bump on his knee is new. He feels that this probably occurred last night, as his bed was untouched. He states that the patient takes aspirin but no other blood thinners. The patient is a former smoker. The patient notes that he has recently had trouble in his right knee, but he states that it is not painful. Home Medications Home Medications Medication Instructions Recorded Confirmed Type carvedilol 6.25 mg PO BID 07/17/18 07/17/18 History cholecalciferol (vitamin D3) 1,000 unit PO DAILY 07/17/18 07/17/18 History cyanocobalamin (vitamin B-12) 1,000 mcg PO QAM 07/17/18 07/17/18 History lisinopril 2.5 mg PO DAILY 07/17/18 07/17/18 History simvastatin 20 mg PO DAILY 07/17/18 07/17/18 History Allergies Allergy/AdvReac Type Severity Reaction Status Date / Time No Known Allergies Allergy Unverified 07/17/18 16:01 Past Med/Surg History Medical History Systolic CHF, chronic (Chronic) AAA (abdominal aortic aneurysm) (Chronic) 4.3cm, stable, follows vasc, no surgical intervention at this time Monoclonal paraproteinemia (Chronic) CKD (chronic kidney disease) stage 3, GFR 30-59 ml/min (Chronic) baseline cr 1.4 Hereditary hemochromatosis (Chronic) HLD (hyperlipidemia) (Chronic) HTN (hypertension) (Chronic) Dementia (Chronic) NICM (nonischemic cardiomyopathy) (Chronic) Surgical History History of tonsillectomy (Chronic) History of cardiac pacemaker (Chronic) Family History Other Family history non-contributory Social History Preferred Language: Hungarian Communication Ability: Effective 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 Beliefs That Will Affect Care: None Current Living Situation: Alone Current Living Situation Comment: Son lives across street, walks with cane/walker Other Information That Helps Us Care for You: No Feels Safe at Home: Yes Safety Concerns: Feels Safe At This Time Smoking Status: Unknown if ever smoked Hx Alcohol Use: No Hx Substance Use: No Review of Systems Other (Unobtainable due to dementia) Physical Exam Vital Signs Vital Signs - 24 hr 07/17/18 14:19 07/17/18 14:33 07/17/18 15:06 Temperature 36.5 C Temperature Source Oral Sepsis Recent Fever Within 48 Hours No Sepsis Action Taken by Nursing No Action Required Pulse Rate 110 H 74 Pulse Rate from SpO2 Sensor 69 Respiratory Rate 20 19 Respiratory Effort / Characteristics Non-Labored Respiratory Depth Normal Respiratory Pattern Blood Pressure 149/98 H 124/82 Blood Pressure [Left Arm] Blood Pressure Mean 115 96 Blood Pressure Mean [Left Arm] Blood Pressure Position [Left Arm] Pulse Oximetry 95 93 94 Oxygen Delivery Method Room Air Room Air 07/17/18 15:14 07/17/18 15:20 07/17/18 15:30 Temperature Temperature Source Sepsis Recent Fever Within 48 Hours Sepsis Action Taken by Nursing Pulse Rate 77 70 73 Pulse Rate from SpO2 Sensor 69 71 71 Respiratory Rate 15 16 15 Respiratory Effort / Characteristics Respiratory Depth Respiratory Pattern Blood Pressure Blood Pressure [Left Arm] Blood Pressure Mean Blood Pressure Mean [Left Arm] Blood Pressure Position [Left Arm] Pulse Oximetry 93 93 92 Oxygen Delivery Method 07/17/18 15:31 07/17/18 15:40 07/17/18 15:50 Temperature Temperature Source Sepsis Recent Fever Within 48 Hours Sepsis Action Taken by Nursing Pulse Rate 79 72 71 Pulse Rate from SpO2 Sensor 67 69 68 Respiratory Rate 20 16 19 Respiratory Effort / Characteristics Respiratory Depth Respiratory Pattern Blood Pressure 116/79 Blood Pressure [Left Arm] Blood Pressure Mean 91 Blood Pressure Mean [Left Arm] Blood Pressure Position [Left Arm] Pulse Oximetry 92 91 92 Oxygen Delivery Method 07/17/18 16:00 07/17/18 16:01 07/17/18 16:10 Temperature Temperature Source Sepsis Recent Fever Within 48 Hours Sepsis Action Taken by Nursing Pulse Rate 75 79 73 Pulse Rate from SpO2 Sensor 69 64 70 Respiratory Rate 20 20 26 H Respiratory Effort / Characteristics Respiratory Depth Respiratory Pattern Blood Pressure Blood Pressure [Left Arm] Blood Pressure Mean Blood Pressure Mean [Left Arm] Blood Pressure Position [Left Arm] Pulse Oximetry 92 91 Oxygen Delivery Method 07/17/18 16:20 07/17/18 16:30 07/17/18 16:31 Temperature Temperature Source Sepsis Recent Fever Within 48 Hours Sepsis Action Taken by Nursing Pulse Rate 74 80 80 Pulse Rate from SpO2 Sensor 57 L 46 L 40 L Respiratory Rate 15 20 21 Respiratory Effort / Characteristics Respiratory Depth Respiratory Pattern Blood Pressure 115/68 120/61 Blood Pressure [Left Arm] Blood Pressure Mean 83 80 Blood Pressure Mean [Left Arm] Blood Pressure Position [Left Arm] Pulse Oximetry 93 93 94 Oxygen Delivery Method 07/17/18 16:32 07/17/18 17:56 07/17/18 17:57 Temperature Temperature Source Sepsis Recent Fever Within 48 Hours Sepsis Action Taken by Nursing Pulse Rate 82 77 Pulse Rate from SpO2 Sensor 56 L Respiratory Rate 20 15 Respiratory Effort / Characteristics Respiratory Depth Respiratory Pattern Blood Pressure 123/62 Blood Pressure [Left Arm] Blood Pressure Mean 82 Blood Pressure Mean [Left Arm] Blood Pressure Position [Left Arm] Pulse Oximetry 94 Oxygen Delivery Method 07/17/18 17:58 07/17/18 18:00 07/17/18 18:01 Temperature Temperature Source Sepsis Recent Fever Within 48 Hours Sepsis Action Taken by Nursing Pulse Rate 73 80 79 Pulse Rate from SpO2 Sensor Respiratory Rate 19 23 23 Respiratory Effort / Characteristics Respiratory Depth Respiratory Pattern Blood Pressure 108/60 Blood Pressure [Left Arm] Blood Pressure Mean 76 Blood Pressure Mean [Left Arm] Blood Pressure Position [Left Arm] Pulse Oximetry Oxygen Delivery Method 07/17/18 18:10 07/17/18 19:57 07/17/18 20:00 Temperature 36.7 C Temperature Source Oral Sepsis Recent Fever Within 48 Hours Sepsis Action Taken by Nursing Pulse Rate 79 94 H Pulse Rate from SpO2 Sensor Respiratory Rate 16 18 Respiratory Effort / Characteristics Non-Labored Spontaneous Respiratory Depth Normal Respiratory Pattern Regular Blood Pressure Blood Pressure [Left Arm] 137/89 Blood Pressure Mean Blood Pressure Mean [Left Arm] 105 Blood Pressure Position [Left Arm] Lying Pulse Oximetry 94 Oxygen Delivery Method Room Air GENERAL: Patient is in no acute distress. HEENT: Mucous membranes are dry, no facial contusions or swelling, hematoma to the mid-posterior scalp without laceration. NECK: No stridor, no adenopathy, no meningismus, trachea is midline, no cervical spine tenderness. LUNGS: Clear to auscultation bilaterally, no wheeze, no rhonchi, breath sounds equal. HEART: Regular rhythm, mildly tachycardic, no obvious murmur. ABDOMEN: Soft, nontender, bowel sounds positive, no hernias, no peritonitis. BACK: Contusion to the left scapula. BUTTOCKS: There is erythema to the buttock. No contusion, no current skin breakdown. EXTREMITIES: Fluid collection noted in the anterior right knee that is non- tender and not contused. Movement of right knee produces no pain. Movement of hips produces no pain. Contusion forming to the right posterior elbow, no pain with right elbow movement. NEUROLOGIC: Dementia noted. Moves all extremities, awake and alert, follows commands. SKIN: No rash, no jaundice, no diaphoresis. Course 1413: The patient was evaluated in room A10, and a complete history and physical examination were performed. 1541: I consulted Dr. Hannah Perez Neurosurgery. He feels that the area of bleeding found on imaging does not require a transfer, and he should receive a repeat CT tomorrow. 1642: I consulted Lorie John PA-C: [facility] Hospitalist. The patient will be reevaluated for hospitalization. 1650: I updated the patient and family on results. Consultations Consultation #1: I consulted Dr. Hannah Perez Neurosurgery. He feels that the area of bleeding found on imaging does not require a transfer, and he should receive a repeat CT tomorrow. Time: 15:41 Consultation #2: I consulted Lorie John PA-C: [facility] Hospitalist. The patient will be reevaluated for hospitalization. Time: 16:42 Administered Medications Carvedilol (Coreg) 6.25 mg PO BID DILLON Stop: 08/16/18 20:59 Last Admin: 07/17/18 21:02 Dose: 6.25 mg Documented by: [id number] Sodium Chloride (Nss) 500 mls @ 125 mls/hr IV .Q4H DILLON Stop: 07/18/18 08:29 Last Admin: 07/17/18 21:01 Dose: 125 mls/hr Documented by: [id number] Discontinued Medications Sodium Chloride (Nss 1000ml) 1,000 mls @ 999 mls/hr IV .Q1H1M DILLON Stop: 07/17/18 15:30 Last Infusion: 07/17/18 15:45 Dose: 0 mls/hr Documented by: [id number] Admin: 07/17/18 14:40 Dose: 999 mls/hr Documented by: [id number] Medical Decision Making Differential Diagnosis Differential diagnosis: intracranial bleeding, concussion, cervical strain, cervical fracture, lumbar or thoracic fracture, dehydration, rhabdomyolysis, UTI, electrolyte imbalance, renal injury, extremity fracture Medical Records Attestation: I reviewed the patient's medical records. Home Medications Current Medication List: was personally reviewed by me Laboratory Data Attestation: I reviewed the patient's lab results. Result diagrams: 07/17/18 14:30 07/17/18 14:30 Lab Results 07/17/18 07/17/18 07/17/18 Range/Units 14:30 14:30 14:30 WBC 12.26 H (4.8-10.8) K/uL RBC 5.29 (4.7-6.1) M/uL Hgb 16.6 (14.0-18.0) g/dL Hct 47.7 (42-52) % MCV 90.2 (80-100) fL MCH 31.4 (25-34) pg MCHC 34.8 (32-36) g/dL RDW Std Deviation 43.9 (36.4-46.3) fL RDW Coeff of Malik 13.3 (11.5-14.5) % Plt Count 201 (130-400) K/uL MPV 10.1 (7.4-10.4) fL Immature Gran % (Auto) 0.3 % Neut % (Auto) 86.3 % Lymph % (Auto) 7.9 % [place] % (Auto) 5.4 % Eos % (Auto) 0.0 % Baso % (Auto) 0.1 % Immature Gran # (Auto) 0.04 H (0.00-0.02) K/uL Neut # (Auto) 10.58 H (1.4-6.5) K/uL Lymph # (Auto) 0.97 L (1.2-3.4) K/uL [place] # (Auto) 0.66 H (0.11-0.59) K/uL Eos # (Auto) 0.00 (0-0.5) K/uL Baso # (Auto) 0.01 (0-0.2) K/uL Sodium 142 (136-145) mmol/L Potassium 4.3 (3.5-5.1) mmol/L Chloride 109 H (98-107) mmol/L Carbon Dioxide 24 (21-32) mmol/L Anion Gap 9.0 (3-11) BUN 26 H (7-18) mg/dl Creatinine 1.49 H (0.6-1.4) mg/dl Est Cr Clr Drug Dosing 38.3 ml/min Est GFR ( Amer) 48.2 Est GFR (Non-Af Amer) 41.6 BUN/Creatinine Ratio 17.5 (10-20) Glucose 106 H (70-99) mg/dl Calcium 9.3 (8.5-10.1) mg/dl Magnesium Cancelled 2.0 Total Bilirubin 2.1 H (0.2-1) mg/dl AST 152 H (15-37) U/L ALT 45 (12-78) U/L Alkaline Phosphatase 89 (45-117) U/L Total Creatine Kinase Cancelled 6498 H Troponin I 0.091 H* (0-0.045) ng/ml Total Protein 7.7 (6.4-8.2) gm/dl Albumin 3.3 L (3.4-5.0) gm/dl Globulin 4.4 H (2.5-4.0) gm/dl Albumin/Globulin Ratio 0.7 L (0.9-2) Urine Color Urine Appearance (Clear) Urine pH (4.5-7.5) Ur Specific [place] (1.000-1.030) Urine Protein (Negative) Urine Glucose (UA) (Negative) Urine Ketones (Negative) Urine Blood (Negative) Urine Nitrite (Negative) Urine Bilirubin (Negative) Urine Urobilinogen (Negative) Ur Leukocyte Esterase (Negative) Urine WBC (Auto) (0-5) /hpf Urine RBC (Auto) (0-4) /hpf U Hyaline Cast (Auto) (0-5) /lpf U Epithel Cells (Auto) (0-5) /lpf Urine Bacteria (Auto) (Negative) 07/17/18 07/17/18 07/17/18 Range/Units 14:30 15:06 20:30 WBC (4.8-10.8) K/uL RBC (4.7-6.1) M/uL Hgb (14.0-18.0) g/dL Hct (42-52) % MCV (80-100) fL MCH (25-34) pg MCHC (32-36) g/dL RDW Std Deviation (36.4-46.3) fL RDW Coeff of Malik (11.5-14.5) % Plt Count (130-400) K/uL MPV (7.4-10.4) fL Immature Gran % (Auto) % Neut % (Auto) % Lymph % (Auto) % [place] % (Auto) % Eos % (Auto) % Baso % (Auto) % Immature Gran # (Auto) (0.00-0.02) K/uL Neut # (Auto) (1.4-6.5) K/uL Lymph # (Auto) (1.2-3.4) K/uL [place] # (Auto) (0.11-0.59) K/uL Eos # (Auto) (0-0.5) K/uL Baso # (Auto) (0-0.2) K/uL Sodium (136-145) mmol/L Potassium (3.5-5.1) mmol/L Chloride (98-107) mmol/L Carbon Dioxide (21-32) mmol/L Anion Gap (3-11) BUN (7-18) mg/dl Creatinine (0.6-1.4) mg/dl Est Cr Clr Drug Dosing ml/min Est GFR ( Amer) Est GFR (Non-Af Amer) BUN/Creatinine Ratio (10-20) Glucose (70-99) mg/dl Calcium (8.5-10.1) mg/dl Magnesium Total Bilirubin (0.2-1) mg/dl AST (15-37) U/L ALT (12-78) U/L Alkaline Phosphatase (45-117) U/L Total Creatine Kinase Troponin I Cancelled 0.119 H* (0-0.045) ng/ml Total Protein (6.4-8.2) gm/dl Albumin (3.4-5.0) gm/dl Globulin (2.5-4.0) gm/dl Albumin/Globulin Ratio (0.9-2) Urine Color Yellow Urine Appearance Clear (Clear) Urine pH 5.0 (4.5-7.5) Ur Specific [place] 1.023 (1.000-1.030) Urine Protein 1+ H (Negative) Urine Glucose (UA) Negative (Negative) Urine Ketones Trace H (Negative) Urine Blood 3+ H (Negative) Urine Nitrite Negative (Negative) Urine Bilirubin Negative (Negative) Urine Urobilinogen Negative (Negative) Ur Leukocyte Esterase Negative (Negative) Urine WBC (Auto) 1-5 (0-5) /hpf Urine RBC (Auto) 0-4 (0-4) /hpf U Hyaline Cast (Auto) 1-5 (0-5) /lpf U Epithel Cells (Auto) 0-5 (0-5) /lpf Urine Bacteria (Auto) Negative (Negative) Imaging Data Radiologist's Impression: Radiology results as stated below per my review and the radiologist's interpretation: CT SCAN OF THE CERVICAL SPINE CLINICAL HISTORY: Trauma. Fall. COMPARISON STUDY: No priors. TECHNIQUE: CT scan of the cervical spine is performed from the skull base to the upper thoracic spine. Images are reviewed in the axial, sagittal, and coronal planes. IV contrast was not administered for this examination. A dose lowering technique was utilized adhering to the principles of ALARA. FINDINGS: Skeletal structures: The skeletal structures are osteopenic. There is no evidence of fracture or subluxation involving the cervical spine. Vertebral body height and alignment are maintained. There is partial fusion of C5, C6, and C7. The odontoid process and lateral masses are intact. The atlantoaxial articulation is preserved noting advanced productive degenerative change. The spinous processes appear intact. There is moderate multilevel cervical spondylosis. Uncovertebral and facet arthropathy contribute sterile foraminal stenosis at several levels. Intervertebral discs: There is moderate multilevel degenerative disc space narrowing. Central canal: Grossly patent. Soft tissues: The prevertebral and paraspinous soft tissues are within normal limits. Pacemaker leads are noted in the left axillary region. Atherosclerotic calcification is noted in the carotid bulbs. Calvarium: The visualized calvarium at the skull base appears intact. Brain parenchyma: There is a subcentimeter hyperdense focus identified in the right cerebellar hemisphere. Age-related involutional change is noted. Sinuses and mastoids: The visualized paranasal sinuses are clear. There are trace mastoid effusions. Lung apices: Clear as visualized. IMPRESSION: 1. There is no evidence of fracture or subluxation involving the cervical spine. 2. Osteopenia and spondylotic change as above. 3. A subcentimeter hyperdense focus is seen in the right cerebellar hemisphere. A small focus of hemorrhage is not excluded. See report of CT of the brain performed concurrently for detailed intracranial findings. Electronically signed by: Evangelista Almaraz M.D. 07/17/2018 3:[address] SCAN OF THE BRAIN WITHOUT IV CONTRAST CLINICAL HISTORY: Fall. COMPARISON STUDY: MRI of the brain dated 03/01/2007. TECHNIQUE: Unenhanced axial CT scan of the brain is performed from the vertex to the skull base. A dose lowering technique was utilized adhering to the principles of ALARA. CT DOSE: 1113.68 mGy.cm FINDINGS: Brain parenchyma: There are age-related involutional changes noting mild subcortical and periventricular microangiopathic change. 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 There is a 6 mm hype rdense focus identified in the right cerebellum seen on image #6. There is no mass effect or evidence of acute territorial ischemia by CT criteria. Roach-white matter differentiation is preserved. No extra-axial fluid collection is seen. Ventricles, sulci, cisterns: Prominent secondary to involutional change. Intracranial vasculature: There is atherosclerotic calcification of the cavernous carotid and vertebral arteries. Calvarium: The skeletal structures are osteopenic. No depressed calvarial fracture is identified. Sinuses and mastoids: There is mucosal thickening with subtotal opacification of the right frontal sinus. Thickening is also seen within the anterior right ethmoid sinuses. The remaining paranasal sinuses are clear. The mastoid air cells are well pneumatized. Orbits: The bony orbits are grossly intact. IMPRESSION: 1. There is a 6 mm hyperdense focus identified within the right cerebellar hemisphere. This is indeterminant and concerning for a small focus of hemorrhag e. 24 hour follow-up is recommended for reassessment. 2. No additional findings are concerning for acute hemorrhage. There is no mass effect or evidence of acute territorial ischemia by CT criteria. Electronically signed by: Evangelista Almaraz M.D. 07/17/2018 3:04 PM XR chest 1V portable HISTORY: Fall. weakness COMPARISON: Chest 02/05/2011. FINDINGS: The heart remains enlarged. The lungs are clear. No pleural effusions. No pneumothorax. Left-sided pacemaker is again noted. No acute rib fractures. IMPRESSION: Stable cardiomegaly. No acute process within the chest. Electronically signed by: Harshal Motley M.D. 07/17/2018 5:19 PM RIGHT KNEE 2 VIEWS HISTORY: Right knee pain. fall, trauma COMPARISON: None. FINDINGS: There is no fracture or dislocation. No knee effusion. Focal anterior soft tissue swelling which could represent a hematoma. This measures 6.8 cm in size. Moderate cartilage space narrowing within the medial compartment the knee. Faint chondrocalcinosis. The bones are osteopenic. No radiopaque foreign bodies. IMPRESSION: No fractures. Focal anterior soft tissue swelling which could represent a subcutaneous hematoma. This measures 6.8 cm. Electronically signed by: Harshal Motley M.D. 07/17/2018 5:16 PM LUMBAR SPINE 3 VIEWS HISTORY: Low back pain. fall, trauma COMPARISON: None. FINDINGS: There is no fracture. No subluxation. The bones are osteopenic. The sacrum appears intact. Moderate to space narrowing at L4-L5 and L5-S1. Mild to moderate facet degenerative changes throughout the lumbar spine. IMPRESSION: No fracture or subluxation within the lumbar spine. Electronically signed by: Harshal Motley M.D. 07/17/2018 5:22 PM SINGLE VIEW PELVIS CLINICAL HISTORY: Fall. FINDINGS: 2 AP supine abdominal radiograph obtained. No prior studies are available for comparison at the time of dictation. The skeletal structures are osteopenic. No fracture is identified involving the hips or bony pelvis. Moderate arthritic change and joint space narrowing is seen in the hips, right greater than left. Lumbosacral spondylosis is partially imaged. There is mild degenerative sclerosis of the sacroiliac joints. The overlying soft tissues are normal in appearance. Atherosclerotic calcification is seen in the femoral arteries. Pelvic phlebolith are observed. No bowel obstruction is identified. IMPRESSION: No acute fracture is identified involving the hips or bony pelvis. Electronically signed by: Evangelista Almaraz M.D. 07/17/2018 5:24 PM THORACIC SPINE 3 VIEWS HISTORY: Back pain. fall, trauma COMPARISON: None. FINDINGS: There is no fracture. No subluxation. Mild discharge scoliosis of the thoracic spine. Paraspinal soft tissues are unremarkable. Moderate degenerative disease throughout the thoracic spine. IMPRESSION: No fracture or subluxation within the thoracic spine. Electronically signed by: Harshal Motley M.D. 07/17/2018 5:18 PM ECG Data Attestation: I personally reviewed and interpreted this ECG as follows: Indication: weakness Rate (beats per minute): 100 Rhythm: other (AV pacemaker) Findings: + PVC; no ST elevation Blood Pressure Blood Pressure Findings: Normal blood pressure Blood Pressure Disposition: did not require urgent referral Head Trauma GCS Score: 14 MDM Narrative There is a mild leukocytosis at 12,000, this could be consistent with infection or the stress of his fall and current situation. Creatinine mildly elevated at 1.49. No significant electrolyte abnormality requiring correction. AST was mildly elevated at 152, bilirubin was mildly elevated at 2.1. The total CK was 6498, this is consistent with some rhabdomyolysis. EKG showed a pacemaker functioning normally. Troponin was slightly elevated, this could be consistent with mismatch or possibly cardiac injury. Urinalysis showed some blood, no evidence for infection. Brain CT showed a potential small area of bleeding to the right cerebellum. C-spine CT did not show fractures. Chest film did not show CHF, rib fracture or pneumonia. Pelvis film did not show fractures. Right knee film did not show any fractures, a potential hematoma was seen in the soft tissue. Thoracic and lumbar spine series did not show fractures. The patient presents after falling. He may have been in the bathtub for over 12 hours. He does have some redness to his skin from being in one position for a while, no skin breakdown. He is in rhabdomyolysis. He does appear to have some contusions but I find no bony fracture by workup. The patient did receive IV saline 1 L to start his rehydration. I discussed the findings on brain CT with neurosurgery at [facility] in [place], the patient does not require transfer. A repeat CT in the morning to be sure things are not worsening was recommended. The patient requires a hospital stay. He is dehydrated and in rhabdomyolysis. He is bruised from his fall. He does have an area of potential intracranial bleeding that needs followed. I spoke to the patient and to case management. I talked to the patient's son. The on-call hospitalist was consulted. Impression & Plan Rhabdomyolysis, Fall, Dehydration, Elevated troponin, Abnormal CT of brain Discharge Plan Visit Data *Final* Discharge Date/Time: 07/17/18 18:18 Chief Complaint: Fall ED Provider: Evangelista Ryan Discharge Problem: Rhabdomyolysis, Fall, Dehydration, Elevated troponin, Abnormal CT of brain Patient Disposition: Admitted As Inpatient Discharge Instructions Interventions: ED Discharge Assessment Last Done: 07/17/18 18:18 Discharge Problem: Rhabdomyolysis Qualifiers: Rhabdomyolysis type: traumatic Encounter type: initial encounter Qualified Code(s): T79.6XXA - Traumatic ischemia of muscle, initial encounter Fall Qualifiers: Encounter type: initial encounter Qualified Code(s): W19.XXXA - Unspecified fall, initial encounter The scribe's documentation has been prepared under my direction and personally reviewed by me in its entirety. I confirm that the note above accurately reflects all work, treatment, procedures, and medical decision making performed by me.
[2018-07-17] MEDS ORDERED: ACETAMINOPHEN 325 MG TAB PO PRN (19:56)
[2018-07-17] MEDS ORDERED: ONDANSETRON INJ 2 MG/ML 2 ML VIAL IV PRN (19:56)
[2018-07-17] MEDS ORDERED: POLYETHYLENE (MIRALAX) 17 GM PACK PO PRN (19:56)
[2018-07-17] MEDS ORDERED: ALUMINUM/MAGNESIUM SUSP 30 ML UDC PO PRN (19:56)
[2018-07-17] MEDS ORDERED: MAGNESIUM HYDROXIDE SUSP 30 ML UDC PO PRN (19:56)
[2018-07-17] MEDS: SODIUM CHLORIDE 0.9% 500 ML IV SCH (21:01)
[2018-07-17] MEDS: CARVEDILOL 6.25 MG TAB PO SCH (21:02)
[2018-07-18] MEDS: SODIUM CHLORIDE 0.9% 500 ML IV SCH ×2 (00:44→05:23)
[2018-07-18 02:31] LABS: Basophils # (auto) 0.01 K/uL (0-0.2); Basophils % (auto) 0.1 %; Eosinophils # (auto) 0.15 K/uL (0-0.5); Eosinophils % (auto) 1.7 %; Hematocrit (blood only) 41.8 % (42-52); Hemoglobin 14.6 g/dL (14.0-18.0); Immature Granulocytes # (auto) 0.01 K/uL (0.00-0.02); Immature Granulocytes % (auto) 0.1 %; Lymphocytes # (auto) 1.63 K/uL (1.2-3.4); Lymphocytes % (auto) 18.9 %; Mean Corpuscular Hgb Conc 34.9 g/dL (32-36); Mean Corpuscular Volume 89.1 fL (80-100); Mean Platelet Volume 9.8 fL (7.4-10.4); Monocytes # (auto) 0.52 K/uL (0.11-0.59); Neutrophils # (auto) 6.29 K/uL (1.4-6.5); Neutrophils % (auto) 73.2 %; Platelet Count 165 K/uL (130-400); RDW Coefficient of Variation 13.6 % (11.5-14.5); RDW Standard Deviation 44.3 fL (36.4-46.3); Red Blood Count 4.69 M/uL (4.7-6.1); White Blood Count 8.61 K/uL (4.8-10.8)
[2018-07-18 02:47] LABS: Albumin Level 2.6 gm/dl (3.4-5.0); Calcium 8.5 mg/dl (8.5-10.1); Creatinine Clr Calc Pharmacy 40.5 ml/min; Est GFR (African American) 51.5; Est GFR (Non-African American) 44.5; Potassium 3.8 mmol/L (3.5-5.1)
[2018-07-18 03:07] LABS: Albumin Globulin Ratio 0.7 (0.9-2); Bilirubin,Total 1.7 mg/dl (0.2-1); Globulin 3.6 gm/dl (2.5-4.0); Total Protein 6.2 gm/dl (6.4-8.2); Troponin I 0.109 ng/ml (0-0.045)
[2018-07-18] MEDS: CYANOCOBALAMIN 500 MCG TABLET (VITAMIN B-12) PO SCH (07:05)
[2018-07-18] MEDS: CARVEDILOL 6.25 MG TAB PO SCH ×2 (07:06→20:23)
[2018-07-18] MEDS: CHOLECALCIFEROL 1,000 UNITS TAB PO SCH (07:06)
--- NOTE | 2018-07-18 09:35 | CT Scan Report ---
CT SCAN OF THE BRAIN WITHOUT IV CONTRAST CLINICAL HISTORY: Follow-up abnormal CT scan. Recent fall. COMPARISON STUDY: CT of the brain dated 07/17/2018. MRI of the brain dated 03/01/2007. TECHNIQUE: Unenhanced axial CT scan of the brain is performed from the vertex to the skull base. A do se lowering technique was utilized adhering to the principles of ALARA. CT DOSE: 788.63 mGycm FINDINGS: Brain parenchyma: There are age-related involutional changes noting mild subcortical and periventric ular microangiopathic change. A chronic lacunar infarct is identified in the left cerebellar hemisphe re. There is unchanged appearance of a 6 mm hyperdense focus in the right cerebellum seen on image #9 . There is no mass effect or evidence of acute territorial ischemia by CT criteria. Roach-white matter differentiation is preserved. No extra-axial fluid collection is seen. Ventricles, sulci, cisterns: Prominent secondary to involutional change. Intracranial vasculature: There is atherosclerotic calcification of the cavernous carotid and vertebr al arteries. Calvarium: The skeletal structures are osteopenic. No depressed calvarial fracture is identified. Sinuses and mastoids: There is mucosal thickening with subtotal opacification of the right frontal si nus. Thickening is also seen within the anterior right ethmoid sinuses. The remaining paranasal sinus es are clear. There are trace mastoid effusions. Orbits: The bony orbits are grossly intact. IMPRESSION: 1. There is unchanged appearance of a 6 mm hyperdense focus within the right cerebellar hemisphere as compared to yesterday. This remains indeterminant, and could represent calcification versus a tiny f ocus of hemorrhage. Follow-up as clinically warranted. 2. No additional findings are concerning for acute hemorrhage. There is no mass effect or evidence of acute territorial ischemia by CT criteria. Electronically signed by: Evangelista Almaraz M.D. 07/18/2018 9:34 AM
[2018-07-18] MEDS ORDERED: LACTATED RINGER'S 1,000 ML IV SCH (13:00)
--- NOTE | 2018-07-18 13:00 | Hospitalist Progress Note ---
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 After discussion with son, appears to be mechanical fall, patient was taking a bath around 10 PMhis usual routine After draining all the water bath tab, with attempts to get out, patient must have slipped, hit his head, fell back into bathtub Patient does not recall of the incident, baseline dementia, No evidence of stroke, no acute coronary event identified, no evidence of infection or dehydration Mechanical fall, due to loss of balance while attempting to getting out of bathtub In ED patient was found to have elevated creatinine kinase 6490, elevated troponin 0 0.091, bilirubin to 2.1, AST 152, BUN/creatinine 26 and 1.49, WBC 12.26 All of the parameters improved after IV fluids (2) Subarachnoid hemorrhage after traumatic injury without open intracranial wound, with prolonged loss of consciousness and return to pre-existing level of consciousness: Secondary to mechanical fall, Chest x-ray was negative for acute abnormality CT of head was concerning for 6 mm hyperdense right cerebellar lesion questionable small focus of hemorrhage recommending repeat CT in [address] head, noncontrast today 07/18/2018 shows stable hemorrhage, no change Patient's mental status improved approximate baseline Avoid antiplatelets, anticoagulation Observe fall precaution Present on Admission?: Yes (3) Rhabdomyolysis: Due to fall, prolonged immobilization, in the bathtub overnight Presented with CPK level more than 6000, stable renal function, elevated troponin secondary to CPK elevation/rhabdomyolysis CPK level improved to 3000 with IV fluids only Patient denies of any aches and pains, no weakness or paresthesia noted Volume status stable clinically We will order 1 L of IV fluids, repeat CPK level in the morning Hold statin (4) Elevated transaminase level: Due to rhabdomyolysis LFTs improved after IV fluid Follow labs, Statin kept on Present on Admission?: Yes (5) Elevated troponin: Secondary to rhabdomyolysis, elevated CPK level No evidence of angina, no evidence of any acute coronary event No further cardiac testing needed Cardiac monitoring discontinued - (6) Leukocytosis: Result: With IV fluids, normal today -Likely related to acute fall and rhabdo -No infectious etiology apparent at this time, he is afebrile -Chest x-ray was negative for acute abnormality, urinalysis was negative for infection (7) Dementia: -Mood stable, no behavioral disturbance Mental status improved to approximate baseline (8) Systolic CHF, chronic: No evidence of cardiac decompensation -EF 26%, secondary to nonischemic cardiomyopathy -Biventricular pacemaker in place -Euvolemic on exam, monitor volume status closely given rhabdo and need for IVF -Continue Coreg, hold lisinopril and atorvastatin in setting of rhabdo (9) NICM (nonischemic cardiomyopathy): -EF 26%, secondary to nonischemic cardiomyopathy -Biventricular pacemaker in place -Euvolemic on exam -Continue Coreg, hold lisinopril and atorvastatin in setting of rhabdo (10) CKD (chronic kidney disease) stage 3, GFR 30-59 ml/min: Renal function stays stable -Baseline creatinine 1.41.5 -BUN/creatinine 26 and 1.49 today, despite rhabdo no significant change (11) HTN (hypertension): -Blood pressure stable continue Coreg -Lisinopril in setting of acute rhabdo, reinitiate when appropriate (12) HLD (hyperlipidemia): -Hold atorvastatin in setting of acute rhabdomyolysis along with elevated LFT (13) Cardiac pacemaker in situ: -Pacemaker interrogation ordered (14) Monoclonal paraproteinemia: -Follows with hematology oncology (15) DVT prophylaxis: CODE STATUS: Full code -SCD/teds, avoid chemical prophylaxis in setting of questionable small focus of hemorrhage found on CT Disposition: To be determined, will consult case management as patient does live alone and may need rehab Patient lives at home, dependent in his ADLs, son lives across the [place], [place] and the patient approximately 2-3 times daily Ordered for PT/OT evaluation to assess fall risk Depending on recommendation: Patient either may need inpatient rehab versus returning home with home health home PT Follow-up: PCP Dr. Crespo upon discharge Subjective Awake and alert, little bit hard of hearing, denies of any pain or discomfort Afebrile, vitals remained stable Patient able to sit up on his own minimal assist, sitting up on edge of bed, n ormal strength Per son present at bedside: Patient's mental status is approximately baseline Physical Exam Vital Signs (Past 24 Hours): Last Vital Signs Temp 36.4 C L 07/18/18 11:31 Pulse 70 07/18/18 11:31 Resp 20 07/18/18 11:31 BP 144/84 H 07/18/18 11:31 Pulse Ox 97 07/18/18 11:31 Physical Exam: GENERAL: Elderly male, very pleasant, hard of hearing HEENT: Sclera nonicteric, pink-purple bilateral equal reactive to light extraocular muscle intact Normal oral mucosa, neck: No JVD, no thyromegaly, trachea midline Lungs: Clear to auscultate, no wheeze or rales Cardiovascular: Regular S1 and S2, no murmur or gallop, no JVD, no lower extremity edema Abdomen: Soft, nontender, bowel sounds active, no hepatosplenomegaly Extremities: Has healed bruits on left shoulder, left lower back, sacral area, no obvious skin tear Neuro: No focal neurological deficit, no dysarthria, no facial droop Hard of hearing Psych: Alert awake oriented to place and person, baseline dementia, no agitation, nor confusion noted, very cooperative, answers questions appropriately Skin: No rash LYMPH NODES: No cervical lymphadenopathy (1) Dementia Dementia behavioral disturbance: without behavioral disturbance Dementia type: unspecified type Qualified Code(s): F03.90 - Unspecified dementia without behavioral disturbance (2) HLD (hyperlipidemia) Hyperlipidemia type: unspecified Qualified Code(s): E78.5 - Hyperlipidemia, unspecified (3) Leukocytosis Leukocytosis type: other Qualified Code(s): D72.828 - Other elevated white blood cell count (4) Rhabdomyolysis Encounter type: initial encounter Rhabdomyolysis type: traumatic Qualified Code(s): T79.6XXA - Traumatic ischemia of muscle, initial encounter (5) HTN (hypertension) Hypertension type: essential hypertension Qualified Code(s): I10 - Essential (primary) hypertension (6) Fall Encounter type: initial encounter Qualified Code(s): W19.XXXA - Unspecified fall, initial encounter
[2018-07-19 07:01] LABS: Albumin Level 2.6 gm/dl (3.4-5.0); BUN Creatinine Ratio 21.2 (10-20); Calcium 8.7 mg/dl (8.5-10.1); Creatinine Clr Calc Pharmacy 45.7 ml/min; Est GFR (African American) 59.6; Est GFR (Non-African American) 51.4; Potassium 3.7 mmol/L (3.5-5.1)
[2018-07-19 07:04] LABS: Albumin Globulin Ratio 0.7 (0.9-2); Bilirubin,Total 1.2 mg/dl (0.2-1); Globulin 3.7 gm/dl (2.5-4.0); Total Protein 6.3 gm/dl (6.4-8.2)
[2018-07-19] MEDS: CARVEDILOL 6.25 MG TAB PO SCH ×2 (08:06→20:16)
[2018-07-19] MEDS: CYANOCOBALAMIN 500 MCG TABLET (VITAMIN B-12) PO SCH (08:06)
[2018-07-19] MEDS: CHOLECALCIFEROL 1,000 UNITS TAB PO SCH (08:06)
--- NOTE | 2018-07-19 15:59 | Hospitalist Progress Note ---
Date of Service July 19, 2018 Assessment & Plan (1) Fall: After sustaining a mechanical fall, With elevated CK level secondary to acute rhabdomyolysis, Level continued to improve after IV hydration Appreciate physical therapy eval, recommend patient can return home with home health home PT Son is very much involved in care Social service following for discharge planning issues (2) Subarachnoid hemorrhage after traumatic injury without open intracranial wound, with prolonged loss of consciousness and return to pre-existing level of consciousness: Secondary to mechanical fall, Chest x-ray was negative for acute abnormality CT of head was concerning for 6 mm hyperdense right cerebellar lesion questionable small focus of hemorrhage recommending repeat CT in [address] head, noncontrast today 07/18/2018 shows stable hemorrhage, no change Patient's mental status improved approximate baseline Avoid antiplatelets, anticoagulation Observe fall precaution (3) Rhabdomyolysis: Due to fall, prolonged immobilization, in the bathtub overnight Presented with CPK level more than 6000, stable renal function, elevated troponin secondary to CPK elevation/rhabdomyolysis CPK level improved to 3000 -> 1200 today Patient denies of any aches and pains, no weakness or paresthesia noted Hold statin Repeat CPK level in a.m., possible discharge home with home PT (4) Elevated transaminase level: Due to rhabdomyolysis He needs to improve Follow labs, Statin kept on (5) Elevated troponin: Secondary to rhabdomyolysis, elevated CPK level No evidence of angina, no evidence of any acute coronary event No further cardiac testing needed Cardiac monitoring discontinued - (6) Leukocytosis: Resolved, white count normal -Likely related to acute fall and rhabdo -No infectious etiology apparent at this time, he is afebrile -Chest x-ray was negative for acute abnormality, urinalysis was negative for infection (7) Dementia: -Mood stable, no behavioral disturbance Mental status improved to approximate baseline (8) Systolic CHF, chronic: No evidence of cardiac decompensation -EF 26%, secondary to nonischemic cardiomyopathy -Biventricular pacemaker in place -Euvolemic on exam, monitor volume status closely given rhabdo and need for IVF -Continue Coreg, will resume lisinopril, continue to hold statin in the setting of rhabdomyolysis (9) NICM (nonischemic cardiomyopathy): -EF 26%, secondary to nonischemic cardiomyopathy -Biventricular pacemaker in place -Euvolemic on exam -Continue Coreg, lisinopril atorvastatin on hold in setting of rhabdo (10) CKD (chronic kidney disease) stage 3, GFR 30-59 ml/min: Renal function stays stable to approximate baseline -Baseline creatinine 1.41.5 -BUN/creatinine 26 and 1.49 today, despite rhabdo no significant change (11) HTN (hypertension): -Blood pressure stable continue Coreg/lisinopril (12) HLD (hyperlipidemia): -Hold atorvastatin in setting of acute rhabdomyolysis along with elevated LFT (13) Cardiac pacemaker in situ: (14) Monoclonal paraproteinemia: -Follows with hematology oncology (15) DVT prophylaxis: CODE STATUS: Full code -SCD/teds, avoid chemical prophylaxis in setting of questionable small focus of hemorrhage found on CT Disposition: PT OT evaluation appreciate Can return home with home health home PT, Son present at bedside updated, And agreeable with discharge to home tomorrow Follow-up: PCP Dr. Crespo upon discharge Subjective Feels fine, no complaint of aches and pains, very pleasant, Son present at bedside, discussed patient's functional status, mental status approximate baseline To discharge home tomorrow with home health home PT Physical Exam Vital Signs (Past 24 Hours): Last Vital Signs Temp 36.3 C L 07/19/18 07:59 Pulse 71 07/19/18 07:59 Resp 16 07/19/18 07:59 BP 154/93 H 07/19/18 07:59 Pulse Ox 97 07/19/18 07:59 Physical Exam: GENERAL: Elderly male, very pleasant, baseline dementia, oriented to person only, no sign of distress HEENT: Sclera nonicteric, pink-purple bilateral equal reactive to light extraocular muscle intact Normal oral mucosa, neck: No JVD, no thyromegaly, trachea midline Lungs: Clear to auscultate, no wheeze or rales Cardiovascular: Regular S1 and S2, no murmur or gallop, no JVD, no lower extremity edema Abdomen: Soft, nontender, bowel sounds active, no hepatosplenomegaly Extremities: No rash or deformity, normal joint, Neuro: No focal neurological deficit, no dysarthria, no facial droop/baseline dementia Psych: Alert awake oriented to person only Skin: No rash LYMPH NODES: No cervical lymphadenopathy (1) Dementia Dementia behavioral disturbance: without behavioral disturbance Dementia type: unspecified type Qualified Code(s): F03.90 - Unspecified dementia without behavioral disturbance (2) HLD (hyperlipidemia) Hyperlipidemia type: unspecified Qualified Code(s): E78.5 - Hyperlipidemia, unspecified (3) Leukocytosis Leukocytosis type: other Qualified Code(s): D72.828 - Other elevated white blood cell count (4) Rhabdomyolysis Encounter type: initial encounter Rhabdomyolysis type: traumatic Qualified Code(s): T79.6XXA - Traumatic ischemia of muscle, initial encounter (5) HTN (hypertension) Hypertension type: essential hypertension Qualified Code(s): I10 - Essential (primary) hypertension (6) Fall Encounter type: initial encounter Qualified Code(s): W19.XXXA - Unspecified fall, initial encounter
[2018-07-20 06:44] LABS: Albumin Level 2.6 gm/dl (3.4-5.0); BUN Creatinine Ratio 18.1 (10-20); Calcium 8.9 mg/dl (8.5-10.1); Creatinine Clr Calc Pharmacy 42.9 ml/min; Est GFR (African American) 55.3; Est GFR (Non-African American) 47.7; Potassium 3.9 mmol/L (3.5-5.1)
[2018-07-20 06:47] LABS: Albumin Globulin Ratio 0.7 (0.9-2); Bilirubin,Total 1.1 mg/dl (0.2-1); Globulin 3.8 gm/dl (2.5-4.0); Total Protein 6.4 gm/dl (6.4-8.2)
[2018-07-20] MEDS: CYANOCOBALAMIN 500 MCG TABLET (VITAMIN B-12) PO SCH (08:31)
[2018-07-20] MEDS: CARVEDILOL 6.25 MG TAB PO SCH (08:32)
[2018-07-20] MEDS: CHOLECALCIFEROL 1,000 UNITS TAB PO SCH (08:32)
--- NOTE | 2018-07-20 16:28 | Discharge Summary ---
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 Son is at bedside. Son lives across the street and patient was last known well approximately 10:30 PM last evening. Son always calls his father approximately at noon and when he did not answer he went over to evaluate the situation. Patient was found to have fallen in bathtub. When found he appeared to have increased confusion and difficulty getting up. EMS was summoned. Son was able to get patient from bathtub. At the time there appeared to be no apparent injuries. He was then brought to ER for further evaluation. Patient ROS slightly unreliable secondary to underlying dementia and hard of hearing. He currently denies any pain, lightheadedness, dizziness, fever, chills, sweats, chest pain, shortness of breath, nausea, vomiting, diarrhea, abdominal pain. He denies any change in his bowel or urinary habits. He did not lose bowel or bladder today. Patient denies loss of consciousness or hitting of head fall was unwitnessed. Principal Diagnosis Fall/ rhabdomyolysis/intracranial bleed Discharge Exam GENERAL: No sign of distress,Elderly male very pleasant HEENT: Sclera nonicteric, pink-purple bilateral equal reactive to light extra ocular muscle intact Normal oral mucosa, neck: No JVD, no thyromegaly, trachea midline Lungs: Clear to auscultate, no wheeze or rales Cardiovascular: Regular S1 and S2, no murmur or gallop, no JVD, no lower extremity edema Abdomen: Soft, nontender, bowel sounds active, no hepatosplenomegaly Extremities: No rash or deformity, normal joint, Neuro: No focal neurological deficit, no dysarthria, no facial droop Psych: Alert, oriented to place and person, baseline dementia Skin: No rash LYMPH NODES: No cervical lymphadenopathy Discharge Data Allergies Allergy/AdvReac Type Severity Reaction Status Date / Time No Known Allergies Allergy Unverified 07/17/18 16:01 Consultations 07/17/18 16:45 ED Decision to Admit Stat 07/17/18 19:56 Consult Case Management - Discharge Planning Routine Ordered Studies 07/17/18 14:21 CT cervical spine wo con Stat CT head/brain wo con Stat 07/18/18 09:00 CT head/brain wo con Routine Hospital Course (1) Fall: After sustaining a mechanical fall, With elevated CK level secondary to acute rhabdomyolysis, Level continued to improve after IV hydration;559 today Appreciate physical therapy eval, recommend patient can return home with home health home PT Son is very much involved in care In agreement with return home with home health home PT Social service following for discharge planning issues-Referral made to home health home PT (2) Subarachnoid hemorrhage after traumatic injury without open intracranial wound, with prolonged loss of consciousness and return to pre-existing level of consciousness: Secondary to mechanical fall, Chest x-ray was negative for acute abnormality CT of head was concerning for 6 mm hyperdense right cerebellar lesion questionable small focus of hemorrhage recommending repeat CT in [address] head, noncontrast 07/18/2018 shows stable hemorrhage, no change Patient's mental status improved approximate baseline Avoid antiplatelets, anticoagulation Observe fall precaution Repeat CT head without contrast in a week in outpatient clinic to see improvement/resolution (3) Rhabdomyolysis: Due to fall, prolonged immobilization, in the bathtub overnight Presented with CPK level more than 6000, stable renal function, elevated troponin secondary to CPK elevation/rhabdomyolysis CPK level improved to 3000 -> 1200 -559 today Patient denies of any aches and pains, no weakness or paresthesia noted Continue to Hold statin Repeat CPK level In a week (4) Elevated transaminase level: Due to rhabdomyolysis LFTs improved Repeat lab in a week Statin kept on (5) Elevated troponin: Secondary to rhabdomyolysis, elevated CPK level No evidence of angina, no evidence of any acute coronary event No further cardiac testing needed Cardiac monitoring discontinued - (6) Leukocytosis: Resolved, white count normal -Likely related to acute fall and rhabdo -No infectious etiology apparent at this time, he is afebrile -Chest x-ray was negative for acute abnormality, urinalysis was negative for infection (7) Dementia: -Mood stable, no behavioral disturbance Mental status improved to approximate baseline (8) Systolic CHF, chronic: No evidence of cardiac decompensation -EF 26%, secondary to nonischemic cardiomyopathy -Biventricular pacemaker in place -Euvolemic on exam, monitor volume status closely given rhabdo and need for IVF -Continue Coreg, resume lisinopril, continue to hold statin in the setting of rhabdomyolysis (9) NICM (nonischemic cardiomyopathy): -EF 26%, secondary to nonischemic cardiomyopathy -Biventricular pacemaker in place -Euvolemic on exam -Continue Coreg, lisinopril atorvastatin on hold in setting of rhabdo (10) CKD (chronic kidney disease) stage 3, GFR 30-59 ml/min: Renal function stays stable to approximate baseline -Baseline creatinine 1.41.5 -BUN/creatinine 26 and 1.49 today, despite rhabdo no significant change (11) HTN (hypertension): -Blood pressure stable continue Coreg/lisinopril (12) HLD (hyperlipidemia): -Hold atorvastatin in setting of acute rhabdomyolysis along with elevated LFT (13) Cardiac pacemaker in situ: (14) Monoclonal paraproteinemia: -Follows with hematology oncology (15) DVT prophylaxis: CODE STATUS: Full code -SCD/teds, avoid chemical prophylaxis in setting of questionable small focus of hemorrhage found on CT Disposition: PT OT evaluation appreciate Stable to return home with home health home PT, Follow-up: PCP Dr. Donohue upon discharge Total Time Total Time Spent Total Time Spent (In Minutes): Approximate 40 minutes Total Time Includes: Examination of the Patient, Discharge Planning and Medication Reconciliation Discharge Plan Discharge Items Patient Disposition: Home - Self-Care Reason For Visit: RHABDOMYLOSIS Discharge Diagnosis: FALL /RHABDOMYOLYSIS /INTRACRANIAL BLEED Discharge Goals: Decrease discomfort Activity: As commented below Activity Comment: CONTINUE PHYSICAL THERAPY /OCCUPATIONAL THERAPY /USE WALKER Non-emergency contact: Primary Care Provider Call non-emergency contact if: you have any medication questions Follow-up/Referrals: Chaz Donohue MD [Primary Care Provider] - 07/26/18 11:05 am Diet: Heart Healthy Other Ambulatory Orders: Creatine Kinase (Routine) Timeframe: 1 Week Location: Determined by Patient Ordered By: Rissa Roman Comprehensive Metabolic Panel (Routine) Timeframe: 1 Week Location: Determined by Patient Ordered By: Rissa Roman CT head/brain wo con (Routine) Timeframe: 1 Week Location: Determined by Patient Ordered By: Rissa Roman Addtl Provider Instructions: DO NOT TAKE STATIN FOR AT LEAST 1 WEEK HAVE LAB WORK CHECKED AT DR WINCHESTER OFFICE -RESUME SIMVASTATIN IF LABS ARE NORMALIZED / RECOMMENDED BY DR DONOHUE PLEASE USE WALKER WHILE WALKING CONCERN FOR INTRACRANIAL BLEED DUE TO TRAUMATIC INJURY TO HEAD AFTER FALL : CT HEAD NON CONTRAST 07/18/18 : 1. There is unchanged appearance of a 6 mm hyperdense focus within the right cerebellar hemisphere as compared to PRIOR SCAN . This remains indeterminant, and could represent calcification versus a tiny focus of hemorrhage. Follow-up as clinically warranted. 2. No additional findings are concerning for acute hemorrhage. There is no mass effect or evidence of acute territorial ischemia by CT criteria. REPEAT CT HEAD WITHOUT CONTRAST IN 1 WEEK TO ASSESS INTRACRANIAL BLEED DO NOT TAKE ASPIRIN DUE TO POSSIBLE INTRACRANIAL BLEED Prescriptions: Continued carvedilol 6.25 mg tablet 6.25 mg PO BID RF: 0 cholecalciferol (vitamin D3) 1,000 unit Tablet 1,000 unit PO DAILY RF: 0 lisinopril 2.5 mg tablet 2.5 mg PO DAILY RF: 0 cyanocobalamin (vitamin B-12) 1,000 mcg Tablet 1,000 mcg PO QAM RF: 0 Discontinued simvastatin 20 mg tablet 20 mg PO DAILY RF: 0 Stand-Alone Forms: [facility] Discharge Orders: Discharge Order (Routine); Ordered 07/20/18 Ordered By: Rissa Roman Admission Data Admit Date/Time: 07/17/18 17:09 Attending Provider: Rissa Roman Admit Provider: Vicky Peralta Primary Care Provider: Chaz Donohue Other Providers: Benjamin Reddy Manabendra Service: Telemetry Medical Other Interventions: Discharge Summary Assessment (RN) Last Done: 07/20/18 10:53 DC Date/Time DO NOT enter until pt leaves facility: 07/20/18 11:52
== END 2018-07-20 11:52 | disposition home or self-care (01) | DRG 964 ==
LOC: ED 14:06 → 2N 17:09 → SUATTDRO 17:09 → 2N 18:18

== ENCOUNTER 2020-01-18 17:03 | Inpatient (IN) ==
[2020-01-18] MEDS ORDERED: CEFEPIME 2,000 MG/20 ML VIAL IV STA (17:19)
--- NOTE | 2020-01-18 17:25 | Emergency Department Note ---
Impression & Plan Hypoxia, Dementia, SOB (shortness of breath), Fever, Elevated lactic acid level ED Provider Note NAME: TONY VASQUEZ AGE: 89 SEX: M : 1930 ARRIVES VIA: Ambulance INFORMANT: [ems, nursing, staff] ED PROVIDER(S): [Evangelista Ryan MD] CHIEF COMPLAINT: Shortness of breath, fever HISTORY OF PRESENT ILLNESS: The patient is an 89-year-old male with dementia. He presents from [facility]. The patient had an O2 saturation in the mid 80s, he seemed short of breath. He has had a cough and a fever. Temperature was 100.6 at the facility. The patient has no known coronavirus exposures. He has had no sick contacts. He presents by EMS. EMS recorded an adequate O2 saturation during their transfer. The patient does not wear oxygen. He can provide no history because of his severe dementia. REVIEW OF SYSTEMS: Unobtainable given his dementia PMHx/PSHx: See Below SOCIAL HISTORY: See Below. PHYSICAL EXAM: GENERAL: Patient is in no acute distress. HEENT: No acute trauma, normocephalic atraumatic, mucous membranes moist, no nasal congestion, no scleral icterus. NECK: No stridor, no adenopathy, no meningismus, trachea is midline. LUNGS: He does have an increased respiratory rate, no accessory muscle use. No respiratory distress. HEART: Regular rate and rhythm, equal radial pulses bilaterally. ABDOMEN: Soft, nontender, bowel sounds positive, no hernias, no peritonitis. EXTREMITIES: No cyanosis or edema, full range of motion of all the joints without pain or difficulty, no signs for acute trauma. NEUROLOGIC: Awake and moaning at times, no acute motor or sensory deficits, no focal weakness. SKIN: No rash, no jaundice, no diaphoresis. Groin: Circumcised. He has a large nontender left inguinal hernia. DIFFERENTIAL DIAGNOSIS: Sepsis, UTI, pneumonia, metabolic, electrolyte abnormalities, cardiac sources, coronavirus, intracerebral event, toxicologic, neurologic, as well as other pathologies. EMERGENCY DEPARTMENT COURSE/PROCEDURES: MEDICAL DECISION MAKING: There is no leukocytosis or concerning anemia. There is a normal platelet count. INR is slightly elevated at 1.2. No kidney failure. No worrisome electrolyte abnormality. Lactic acid level is elevated at 3.3. This lactic acid elevation could of course be consistent with infection and/or dehydration. No worrisome liver enzyme elevation. Procalcitonin level was not elevated. Cardiac enzyme testing was not elevated. Chest film did not show pneumonia or CHF. On exam, there was no cellulitis, no peritonitis. Urinalysis did not show evidence for infection. Coronavirus testing returned negative. The patient received IV cefepime as empiric antibiotic coverage. He was given IV saline, 1 L. The patient presents with reported hypoxia and shortness of breath. He had a fever earlier. Sepsis/bacteremia is a concern. At this point, I do not find any bacterial source for infection. Given the hypoxia, given the fever and history, hospitalization is warranted. We await the results from the blood cultures. The patient has been quite uncooperative. He would not allow us to complete an ECG. He would not allow the mica miner leads to remain in position. I did speak with case management. The on-call hospitalist has been consulted. Past Med/Surg History Medical History AAA (abdominal aortic aneurysm) >7cm Abnormal CT of brain CKD (chronic kidney disease) stage 3, GFR 30-59 ml/min baseline cr 1.4 Dementia Elevated transaminase level Elevated troponin Fall Hereditary hemochromatosis HLD (hyperlipidemia) HTN (hypertension) Leukocytosis Monoclonal paraproteinemia NICM (nonischemic cardiomyopathy) Rhabdomyolysis Subarachnoid hemorrhage after traumatic injury without open intracranial wound, with prolonged loss of consciousness and return to pre-existing level of consciousness Systolic CHF, chronic Surgical History History of cardiac pacemaker History of tonsillectomy Family History Other Family history non-contributory Social History Smoking Status: Unknown if ever smoked Tobacco Type: Pipe and Cigars Hx Alcohol Use: No Hx Substance Use: No Preferred Language: Bulgarian Communication Ability: Impaired Communication Ability Comment: dementia Hearing Ability: Hard of Hearing Transportation Inspector Required: No Beliefs That Will Affect Care: None Current Living Situation: Alone Current Living Situation Comment: Son lives across street, walks with cane/walker Feels Safe at Home: Yes Assistive Devices: Walker Allergies Allergies Allergy/AdvReac Type Severity Reaction Status Date / Time No Known Allergies Allergy Verified 01/18/20 18:25 Home Meds Home Medications Medication Instructions Recorded Confirmed carvedilol 6.25 mg PO BID 07/17/18 01/18/20 cholecalciferol (vitamin D3) 1,000 unit PO QAM 07/17/18 01/18/20 cyanocobalamin (vitamin B-12) 1,000 mcg PO QAM 07/17/18 01/18/20 simvastatin 20 mg PO QAM 03/16/19 01/18/20 acetaminophen [Tylenol Extra 1,000 mg PO Q8H PRN MDD 3 /11/10/19 01/18/20 Strength] HOURS diclofenac sodium 2 g TOPICAL QID PRN 01/18/20 01/18/20 mirtazapine 7.5 mg PO HS 01/18/20 01/18/20 mirtazapine 15 mg PO HS 01/18/20 01/18/20 Results & Data (ED) Vital Signs Vital Signs - 24 hr 01/18/20 17:10 01/18/20 17:27 01/18/20 18:00 Temperature 36.9 C Temperature Source Oral Pulse Rate 82 Pulse Rate [Bilateral Apical] Pulse Rate from SpO2 Sensor Respiratory Rate 20 13 Respiratory Effort / Characteristics Non-Labored Spontaneous Respiratory Depth Normal Respiratory Pattern Regular Blood Pressure 104/86 115/79 Blood Pressure [Right Arm] Blood Pressure Mean 92 94 Blood Pressure Mean [Right Arm] Pulse Oximetry 96 Oxygen Delivery Method Room Air Sepsis Recent Fever Within 48 Hours No Sepsis New/Unexplained Change in Mental Status N/A Sepsis Action Taken by Nursing No Action Required 01/18/20 18:08 01/18/20 18:30 01/18/20 19:16 Temperature Temperature Source Pulse Rate Pulse Rate [Bilateral Apical] 98 H Pulse Rate from SpO2 Sensor 95 H Respiratory Rate 21 20 Respiratory Effort / Characteristics Respiratory Depth Respiratory Pattern Blood Pressure 115/83 Blood Pressure [Right Arm] 105/72 Blood Pressure Mean 89 Blood Pressure Mean [Right Arm] 83 Pulse Oximetry 96 90 Oxygen Delivery Method Room Air Room Air Sepsis Recent Fever Within 48 Hours Sepsis New/Unexplained Change in Mental Status Sepsis Action Taken by Alf Medications Current Medication List: was personally reviewed by me Laboratory Data Attestation: I reviewed the patient's lab results. Result diagrams: 01/19/20 04:59 01/19/20 04:59 Lab Results 01/18/20 01/18/20 01/18/20 Range/Units 18:00 18:00 18:03 WBC (4.8-10.8) K/uL RBC (4.7-6.1) M/uL Hgb (14.0-18.0) g/dL Hct (42-52) % MCV (80-100) fL MCH (25-34) pg MCHC (32-36) g/dL RDW Std Deviation (36.4-46.3) fL RDW Coeff of Malik (11.5-14.5) % Plt Count (130-400) K/uL MPV (7.4-10.4) fL Immature Gran % (Auto) % Neut % (Auto) % Lymph % (Auto) % [place] % (Auto) % Eos % (Auto) % Baso % (Auto) % Neut # (Auto) (1.4-6.5) K/uL Lymph # (Auto) (1.2-3.4) K/uL [place] # (Auto) (0.11-0.59) K/uL Eos # (Auto) (0-0.5) K/uL Baso # (Auto) (0-0.2) K/uL Immature Gran # (Auto) (0.00-0.02) K/uL PT (9.0-12.0) Seconds INR (0.9-1.1) APTT (21.0-31.0) Seconds PTT Ratio Sodium (136-145) mmol/L Potassium (3.5-5.1) mmol/L Chloride (98-107) mmol/L Carbon Dioxide (21-32) mmol/L Anion Gap (3-11) BUN (7-18) mg/dl Creatinine (0.6-1.4) mg/dl Est Cr Clr Drug Dosing Est GFR ( Amer) Est GFR (Non-Af Amer) BUN/Creatinine Ratio (10-20) Glucose (70-99) mg/dl Lactate (0.4-2.0) mmol/L Calcium (8.5-10.1) mg/dl Magnesium (1.8-2.4) mg/dl Total Bilirubin (0.2-1) mg/dl AST (15-37) U/L ALT (12-78) U/L Alkaline Phosphatase (45-117) U/L Troponin I (0-0.045) ng/ml Total Protein (6.4-8.2) gm/dl Albumin (3.4-5.0) gm/dl Globulin (2.5-4.0) gm/dl Albumin/Globulin Ratio (0.9-2) Procalcitonin 0.10 (0-0.5) ng/ml Urine Color Urine Appearance (Clear) Urine pH (4.5-7.5) Ur Specific [place] (1.000-1.030) Urine Protein (Negative) Urine Glucose (UA) (Negative) Urine Ketones (Negative) Urine Blood (Negative) Urine Nitrite (Negative) Urine Bilirubin (Negative) Urine Urobilinogen (Negative) Ur Leukocyte Esterase (Negative) Urine WBC (Auto) (0-5) /hpf Urine RBC (Auto) (0-4) /hpf U Hyaline Cast (Auto) (0-5) /lpf U Epithel Cells (Auto) (0-5) /lpf Urine Bacteria (Auto) (Negative) COVID-19 Eval Order Covid19 Done at [facility] COVID-19 PCR NEGATIVE (Negative) 01/18/20 01/18/20 01/18/20 Range/Units 18:03 18:03 18:03 WBC 7.86 (4.8-10.8) K/uL RBC 4.32 L (4.7-6.1) M/uL Hgb 13.3 L (14.0-18.0) g/dL Hct 39.7 L (42-52) % MCV 91.9 (80-100) fL MCH 30.8 (25-34) pg MCHC 33.5 (32-36) g/dL RDW Std Deviation 49.9 H (36.4-46.3) fL RDW Coeff of Malik 14.6 H (11.5-14.5) % Plt Count 239 (130-400) K/uL MPV 10.0 (7.4-10.4) fL Immature Gran % (Auto) 0.1 % Neut % (Auto) 86.3 % Lymph % (Auto) 7.0 % [place] % (Auto) 6.2 % Eos % (Auto) 0.3 % Baso % (Auto) 0.1 % Neut # (Auto) 6.78 H (1.4-6.5) K/uL Lymph # (Auto) 0.55 L (1.2-3.4) K/uL [place] # (Auto) 0.49 (0.11-0.59) K/uL Eos # (Auto) 0.02 (0-0.5) K/uL Baso # (Auto) 0.01 (0-0.2) K/uL Immature Gran # (Auto) 0.01 (0.00-0.02) K/uL PT 12.7 H (9.0-12.0) Seconds INR 1.2 H (0.9-1.1) APTT 26.5 (21.0-31.0) Seconds PTT Ratio 0.9 Sodium 143 (136-145) mmol/L Potassium 4.4 (3.5-5.1) mmol/L Chloride 108 H (98-107) mmol/L Carbon Dioxide 27 (21-32) mmol/L Anion Gap 8.0 (3-11) BUN 24 H (7-18) mg/dl Creatinine 1.38 (0.6-1.4) mg/dl Est Cr Clr Drug Dosing Not Reportable Est GFR ( Amer) 52.5 Est GFR (Non-Af Amer) 45.3 BUN/Creatinine Ratio 17.5 (10-20) Glucose 100 H (70-99) mg/dl Lactate (0.4-2.0) mmol/L Calcium 9.7 (8.5-10.1) mg/dl Magnesium 2.0 (1.8-2.4) mg/dl Total Bilirubin 1.1 H (0.2-1) mg/dl AST 18 (15-37) U/L ALT 22 (12-78) U/L Alkaline Phosphatase 99 (45-117) U/L Troponin I < 0.015 (0-0.045) ng/ml Total Protein 7.4 (6.4-8.2) gm/dl Albumin 3.0 L (3.4-5.0) gm/dl Globulin 4.4 H (2.5-4.0) gm/dl Albumin/Globulin Ratio 0.7 L (0.9-2) Procalcitonin (0-0.5) ng/ml Urine Color Urine Appearance (Clear) Urine pH (4.5-7.5) Ur Specific [place] (1.000-1.030) Urine Protein (Negative) Urine Glucose (UA) (Negative) Urine Ketones (Negative) Urine Blood (Negative) Urine Nitrite (Negative) Urine Bilirubin (Negative) Urine Urobilinogen (Negative) Ur Leukocyte Esterase (Negative) Urine WBC (Auto) (0-5) /hpf Urine RBC (Auto) (0-4) /hpf U Hyaline Cast (Auto) (0-5) /lpf U Epithel Cells (Auto) (0-5) /lpf Urine Bacteria (Auto) (Negative) COVID-19 Eval Order COVID-19 PCR (Negative) 01/18/20 01/18/20 Range/Units 18:03 18:03 WBC (4.8-10.8) K/uL RBC (4.7-6.1) M/uL Hgb (14.0-18.0) g/dL Hct (42-52) % MCV (80-100) fL MCH (25-34) pg MCHC (32-36) g/dL RDW Std Deviation (36.4-46.3) fL RDW Coeff of Malik (11.5-14.5) % Plt Count (130-400) K/uL MPV (7.4-10.4) fL Immature Gran % (Auto) % Neut % (Auto) % Lymph % (Auto) % [place] % (Auto) % Eos % (Auto) % Baso % (Auto) % Neut # (Auto) (1.4-6.5) K/uL Lymph # (Auto) (1.2-3.4) K/uL [place] # (Auto) (0.11-0.59) K/uL Eos # (Auto) (0-0.5) K/uL Baso # (Auto) (0-0.2) K/uL Immature Gran # (Auto) (0.00-0.02) K/uL PT (9.0-12.0) Seconds INR (0.9-1.1) APTT (21.0-31.0) Seconds PTT Ratio Sodium (136-145) mmol/L Potassium (3.5-5.1) mmol/L Chloride (98-107) mmol/L Carbon Dioxide (21-32) mmol/L Anion Gap (3-11) BUN (7-18) mg/dl Creatinine (0.6-1.4) mg/dl Est Cr Clr Drug Dosing Est GFR ( Amer) Est GFR (Non-Af Amer) BUN/Creatinine Ratio (10-20) Glucose (70-99) mg/dl Lactate 3.3 H* (0.4-2.0) mmol/L Calcium (8.5-10.1) mg/dl Magnesium (1.8-2.4) mg/dl Total Bilirubin (0.2-1) mg/dl AST (15-37) U/L ALT (12-78) U/L Alkaline Phosphatase (45-117) U/L Troponin I (0-0.045) ng/ml Total Protein (6.4-8.2) gm/dl Albumin (3.4-5.0) gm/dl Globulin (2.5-4.0) gm/dl Albumin/Globulin Ratio (0.9-2) Procalcitonin (0-0.5) ng/ml Urine Color Yellow Urine Appearance Clear (Clear) Urine pH 7.0 (4.5-7.5) Ur Specific [place] 1.022 (1.000-1.030) Urine Protein Trace H (Negative) Urine Glucose (UA) Negative (Negative) Urine Ketones Trace H (Negative) Urine Blood Negative (Negative) Urine Nitrite Negative (Negative) Urine Bilirubin Negative (Negative) Urine Urobilinogen Negative (Negative) Ur Leukocyte Esterase Negative (Negative) Urine WBC (Auto) 1-5 (0-5) /hpf Urine RBC (Auto) 0-4 (0-4) /hpf U Hyaline Cast (Auto) 1-5 (0-5) /lpf U Epithel Cells (Auto) 5-10 H (0-5) /lpf Urine Bacteria (Auto) Negative (Negative) COVID-19 Eval Order COVID-19 PCR (Negative) Administered Medications Carvedilol (Carvedilol 6.25 Mg Tab) 6.25 mg PO BID DILLON Stop: 02/17/20 21:44 Last Admin: 01/18/20 22:33 Dose: 6.25 mg Documented by: [id number] Cefepime HCl 2,000 mg/ Syringe 20 mls @ 5 mls/min IV Q12H DILLON; Protocol Stop: 01/21/20 06:59 Last Admin: 01/19/20 08:05 Dose: 5 mls/min Documented by: [id number] Sodium Chloride (Nss 1000ml) 1,000 mls @ 80 mls/hr IV .[id number] DILLON Stop: 01/19/20 22:29 Last Admin: 01/18/20 21:54 Dose: 80 mls/hr Documented by: [id number] Mirtazapine (Mirtazapine Tab 15 Mg Tab) 22.5 mg PO HS DILLON Stop: 02/17/20 21:44 Last Admin: 01/18/20 22:33 Dose: 22.5 mg Documented by: [id number] Discontinued Medications Sodium Chloride (Nss 1000ml) 1,000 mls @ 999 mls/hr IV .[id number] DILLON Stop: 01/18/20 18:30 Last Infusion: 01/18/20 19:28 Dose: 0 mls/hr Documented by: [id number] Admin: 01/18/20 18:46 Dose: 999 mls/hr Documented by: [id number] Cefepime HCl (Maxipime) 2,000 mg in 20 mls @ 5 mls/min IV NOW STA; Protocol Stop: 01/18/20 17:22 Last Admin: 01/18/20 19:28 Dose: 5 mls/min Documented by: [id number] Imaging Data Radiologist's Impression: XR chest 1V portable HISTORY: SEPSIS COMPARISON: Chest 11/28/2019. FINDINGS: Left-sided pacemaker is again noted. The heart remains mildly enlarged. No pleural effusions. No pneumothorax. No evidence for pulmonary vladislav a. No new focal lung consolidations to suggest pneumonia. Mild perihilar interstitial thickening remains unchanged and is likely chronic. Slightly rotated study. IMPRESSION: No significant change compared to the prior study. No acute process. Blood Pressure Blood Pressure Findings: Normal blood pressure Discharge Plan Visit Data Chief Complaint: Shortness of Breath/Dyspnea Stated Complaint: FEVER, COUGH, ED Provider: Evangelista Ryan Discharge Problem: Hypoxia, Dementia, SOB (shortness of breath), Fever, Elevated lactic acid level Patient Disposition: Admitted As Inpatient Condition: Fair Discharge Instructions Interventions: ED Discharge Assessment Last Done: 01/18/20 20:37 Discharge Problem: Dementia Qualifiers: Dementia type: unspecified type Dementia behavioral disturbance: with behavioral disturbance Qualified Code(s): F03.91 - Unspecified dementia with behavioral disturbance Fever Qualifiers: Fever type: unspecified Qualified Code(s): R50.9 - Fever, unspecified
[2020-01-18] MEDS ORDERED: SODIUM CHLORIDE 0.9% 1000ML 1,000 ML IV SCH (17:30)
[2020-01-18 18:18] LABS: Basophils # (auto) 0.01 K/uL (0-0.2); Basophils % (auto) 0.1 %; Eosinophils # (auto) 0.02 K/uL (0-0.5); Eosinophils % (auto) 0.3 %; Hematocrit (blood only) 39.7 % (42-52); Hemoglobin 13.3 g/dL (14.0-18.0); Immature Granulocytes # (auto) 0.01 K/uL (0.00-0.02); Immature Granulocytes % (auto) 0.1 %; Lymphocytes # (auto) 0.55 K/uL (1.2-3.4); Mean Corpuscular Hemoglobin 30.8 pg (25-34); Mean Corpuscular Hgb Conc 33.5 g/dL (32-36); Mean Corpuscular Volume 91.9 fL (80-100); Monocytes # (auto) 0.49 K/uL (0.11-0.59); Monocytes % (auto) 6.2 %; Neutrophils # (auto) 6.78 K/uL (1.4-6.5); Neutrophils % (auto) 86.3 %; Platelet Count 239 K/uL (130-400); RDW Coefficient of Variation 14.6 % (11.5-14.5); RDW Standard Deviation 49.9 fL (36.4-46.3); Red Blood Count 4.32 M/uL (4.7-6.1); White Blood Count 7.86 K/uL (4.8-10.8)
[2020-01-18 18:22] LABS: Appearance Urine Clear (Clear); Bacteria Urine Automated Negative (Negative); Bilirubin Urine Negative (Negative); Blood Urine Negative (Negative); Color Urine Yellow; Glucose Urine UA Negative (Negative); Ketones Urine Trace (Negative); Leukocyte Esterase Urine Negative (Negative); Nitrite Urine Negative (Negative); Protein Urine Trace (Negative); RBC Urine Automated 0-4 /hpf (0-4); Specific Gravity Urine 1.022 (1.000-1.030); Urobilinogen Urine Negative (Negative)
[2020-01-18 18:35] LABS: Alanine Aminotransferase 22 U/L (12-78); Aspartate Aminotransferase 18 U/L (15-37); BUN Creatinine Ratio 17.5 (10-20); Blood Urea Nitrogen 24 mg/dl (7-18); Calcium 9.7 mg/dl (8.5-10.1); Carbon Dioxide 27 mmol/L (21-32); Chloride 108 mmol/L (98-107); Est GFR (African American) 52.5; Est GFR (Non-African American) 45.3; Glucose 100 mg/dl (70-99); Potassium 4.4 mmol/L (3.5-5.1); Sodium 143 mmol/L (136-145)
[2020-01-18 18:36] LABS: INR 1.2 (0.9-1.1); Partial Thromboplastin Ratio 0.9; Partial Thromboplastin Time 26.5 Seconds (21.0-31.0); Prothrombin Time 12.7 Seconds (9.0-12.0)
--- NOTE | 2020-01-18 18:39 | XRay Report ---
XR chest 1V portable HISTORY: SEPSIS COMPARISON: Chest 11/28/2019. FINDINGS: Left-sided pacemaker is again noted. The heart remains mildly enlarged. No pleural effusion s. No pneumothorax. No evidence for pulmonary edema. No new focal lung consolidations to suggest pneu monia. Mild perihilar interstitial thickening remains unchanged and is likely chronic. Slightly rotat ed study. IMPRESSION: No significant change compared to the prior study. No acute process. ACT 112: Negative or not required by law. Electronically signed by: Harshal Motley M.D. 01/18/2020 6:38 PM
[2020-01-18 18:40] LABS: Albumin Globulin Ratio 0.7 (0.9-2); Alkaline Phosphatase 99 U/L (45-117); Bilirubin,Total 1.1 mg/dl (0.2-1); Globulin 4.4 gm/dl (2.5-4.0); Total Protein 7.4 gm/dl (6.4-8.2); Troponin I < 0.015 ng/ml (0-0.045)
[2020-01-18] MEDS ORDERED: LORazepam 0.5 MG TAB PO PRN (19:45)
--- NOTE | 2020-01-18 19:55 | History & Physical Report ---
Date of Service January 18, 2020 Assessment & Plan (1) Fever: -This is a 89 year old with dementia from [facility] and he was noted in the facility to have fever of 100.6 and cough and so patient was brought to the ED. as per ED provider that initially The patient had an O2 saturation in the mid 80s, he seemed short of breath. admission lactic acid of 3.3, was given IV fluids in the ED and IV Cefepime Patient is verbal but cannot give history because of dementia. History from ED provider notes, and from telephone conversation with patient's son Hernandez Barfield [phone]. Patient cannot participate in full review of systems but does not appear to be in acute pain or acute distress. He does not appear to significantly have dyspnea when assessed by hospitalist (2) Lactic acidosis: -admission lactic acid of 3.3, was given IV fluids in the ED and IV Cefepime -trend the lactic acid (3) Oxygen desaturation: -as per ED provider that initially The patient had an O2 saturation in the mid 80s, he seemed short of breath. -CXR without signs of pneumonia or pulmonary edema -COVID 19 screening negative -droplet precaution until influenza swab/Biofire results return -continue supplementary oxygen as needed -as per son, patient can have post-nasal drip in the past and leading to cough -NPO for now (allow for sips/chips/meds if okay dysphagia screening), patient has IV fluids , formal speech and swallow evaluations -aspiration precautions, head elevated above the bed (4) CKD (chronic kidney disease) stage 3, GFR 30-59 ml/min: follow the creatinine (5) Cardiac pacemaker in situ: -as per son, the patient's pacemaker is set for minimal of 70 bpm -nurse in ED attempted to get telemetry needs on patient in the ED -patient's dementia may inhibit cardiac monitoring with external etelemtry leads (6) Systolic CHF, chronic: -as per outpatient records that patient had in the 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 -patient is not on any home diuretics continue the home dose carvedilol 6.26 mg BID, simvastatin 20 mg daily (7) NICM (nonischemic cardiomyopathy): (8) AAA (abdominal aortic aneurysm): -as per son, patient has a known abdominal aneurysm greater than 7 cm (9) Hereditary hemochromatosis: -follow the CBC (10) Dementia: -patient from [facility], walks at baseline as per patient's son Hernandez Barfield [phone] -PT/OT assessments, caseworker intake consult -home dose remeron of 22.5 mg qhs -can give ativan low dose prn q12 hours if agitation not alleviated by reorientation -Code Status is DNR/DNI as per patient's son Hernandez DVT prophylaxis: SCDs for now My colleague Dr. Roman will be hospitalist attending for the patient starting on 01/19/2020 History of Present Illness -This is a 89 year old with dementia from [facility] and he was noted in the facility to have fever of 100.6 and cough and so patient was brought to the ED. as per ED provider that initially The patient had an O2 saturation in the mid 80s, he seemed short of breath. admission lactic acid of 3.3, was given IV fluids in the ED and IV Cefepime Patient is verbal but cannot give history because of dementia. History from ED provider notes, and from telephone conversation with patient's son Hernandez Barfield [phone]. Patient cannot participate in full review of systems but does not appear to be in acute pain or acute distress. He does not appear to significantly have dyspnea when assessed by hospitalist Allergies: no known drug allergies as per his son Hernandez Family Health History: patient's mother had dementia as per patient's son Hernandez Primary Care Provider: [facility] Allergies Allergy/AdvReac Type Severity Reaction Status Date / Time No Known Allergies Allergy Verified 01/18/20 18:25 Home Medications Home Medications Medication Instructions Recorded Confirmed Type carvedilol 6.25 mg PO BID 07/17/18 01/18/20 History cholecalciferol (vitamin D3) 1,000 unit PO QAM 07/17/18 01/18/20 History cyanocobalamin (vitamin B-12) 1,000 mcg PO QAM 07/17/18 01/18/20 History simvastatin 20 mg PO QAM 03/16/19 01/18/20 History acetaminophen [Tylenol Extra 1,000 mg PO Q8H PRN MDD 3 GRAM/24 11/10/19 01/18/20 History Strength] HOURS diclofenac sodium 2 g TOPICAL QID PRN 01/18/20 01/18/20 History mirtazapine 7.5 mg PO HS 01/18/20 01/18/20 History mirtazapine 15 mg PO HS 01/18/20 01/18/20 History Past Med/Surg History Medical History (Updated 01/18/20 @ 19:38 by Olena Du PA-C) AAA (abdominal aortic aneurysm) >7cm Abnormal CT of brain CKD (chronic kidney disease) stage 3, GFR 30-59 ml/min baseline cr 1.4 Dementia Elevated transaminase level Elevated troponin Fall Hereditary hemochromatosis HLD (hyperlipidemia) HTN (hypertension) Leukocytosis Monoclonal paraproteinemia NICM (nonischemic cardiomyopathy) Rhabdomyolysis Subarachnoid hemorrhage after traumatic injury without open intracranial wound, with prolonged loss of consciousness and return to pre-existing level of consciousness Systolic CHF, chronic Surgical History History of cardiac pacemaker History of tonsillectomy Family History Other Family history non-contributory Social History Smoking Status: Unknown if ever smoked Tobacco Type: Pipe and Cigars Hx Alcohol Use: No Hx Substance Use: No Preferred Language: Kinyarwanda Communication Ability: Impaired Hearing Ability: Hard of Hearing [place] [employer] D[employer] Required: No Beliefs That Will Affect Care: None Current Living Situation: Alone Current Living Situation Comment: Son lives across street, walks with cane/walker Feels Safe at Home: Yes Assistive Devices: Glasses Review of Systems Review of Systems: Unobtainable due to cognitive status Physical Exam Constitutional: + frail appearing Eyes: EOM intact bilaterally ENMT: external ear and nose normal, oropharynx normal Neck: normal visual inspection Respiratory: normal respiratory effort no crackles, no wheezing Gastrointestinal (Abdomen): normal bowel sounds, soft, nontender, no hepatosplenomegaly Musculoskeletal: Head/Neck/Chest: normocephalic Neurologic: moves all extremities and awake Psychiatric: Orientation: alert Results & Data Results & Data ([facility]) Vital Signs (Past 12 Hours) Vital Signs Temp Pulse Pulse Resp BP BP Pulse Ox 01/18/20 19:16 98 H 20 105/72 90 01/18/20 18:30 21 115/83 96 01/18/20 18:00 13 115/79 10/03/20 17:10 36.9 C 82 20 104/86 96 Code Status & VTE Plan VTE Prophylaxis Plan VTE Prophylaxis will be ordered: Yes (1) Dementia Dementia type: unspecified type Dementia behavioral disturbance: without behavioral disturbance Qualified Code(s): F03.90 - Unspecified dementia without behavioral disturbance
[2020-01-18 21:03] LABS: Adenovirus PCR Not Detected (NotDetected); Bordetella parapertussis PCR Not Detected (NotDetected); Bordetella pertussis PCR Not Detected (NotDetected); Chlamydia pneumoniae PCR Not Detected (NotDetected); Coronavirus 229E PCR Not Detected (NotDetected); Coronavirus CoV-2 (COVID19)PCR Not Detected (NotDetected); Coronavirus HKU1 PCR Not Detected (NotDetected); Coronavirus NL63 PCR Not Detected (NotDetected); Coronavirus OC43PCR Not Detected (NotDetected); Human Metapneumovirus PCR Not Detected (NotDetected); Influenza A PCR Not Detected (NotDetected); Influenza B PCR Not Detected (NotDetected); Mycoplasma pneumoniae PCR Not Detected (NotDetected); Parainfluenza Virus 1 PCR Not Detected (NotDetected); Parainfluenza Virus 2 PCR Not Detected (NotDetected); Parainfluenza Virus 3 PCR Not Detected (NotDetected); Parainfluenza Virus 4 PCR Not Detected (NotDetected); Respiratory Syncytial VirusPCR Not Detected (NotDetected)
[2020-01-18 21:06] LABS: Rhinovirus/Enterovirus PCR DETECTED (NotDetected)
[2020-01-18] MEDS ORDERED: POLYETHYLENE (MIRALAX) 17 GM PACK PO PRN (21:30)
[2020-01-18] MEDS ORDERED: ACETAMINOPHEN 325 MG TAB PO PRN (21:30)
[2020-01-18] MEDS: SODIUM CHLORIDE 0.9% 1000ML 1,000 ML IV SCH (21:54)
[2020-01-18] MEDS: MIRTAZAPINE TAB 15 MG TAB PO SCH (22:33)
[2020-01-18] MEDS: carvediloL 6.25 MG TAB PO SCH (22:33)
[2020-01-19 06:13] LABS: Basophils # (auto) 0.01 K/uL (0-0.2); Basophils % (auto) 0.3 %; Eosinophils # (auto) 0.04 K/uL (0-0.5); Hematocrit (blood only) 38.9 % (42-52); Lymphocytes # (auto) 0.93 K/uL (1.2-3.4); Lymphocytes % (auto) 23.9 %; Mean Corpuscular Hemoglobin 30.5 pg (25-34); Mean Corpuscular Hgb Conc 33.4 g/dL (32-36); Mean Corpuscular Volume 91.3 fL (80-100); Mean Platelet Volume 10.3 fL (7.4-10.4); Monocytes # (auto) 0.56 K/uL (0.11-0.59); Monocytes % (auto) 14.4 %; Neutrophils # (auto) 2.35 K/uL (1.4-6.5); Neutrophils % (auto) 60.4 %; Platelet Count 209 K/uL (130-400); RDW Coefficient of Variation 14.8 % (11.5-14.5); RDW Standard Deviation 49.4 fL (36.4-46.3); Red Blood Count 4.26 M/uL (4.7-6.1); White Blood Count 3.89 K/uL (4.8-10.8)
[2020-01-19 06:52] LABS: BUN Creatinine Ratio 20.3 (10-20); Calcium 8.8 mg/dl (8.5-10.1); Creatinine Clr Calc Pharmacy 42.1 ml/min; Est GFR (African American) 70.6
[2020-01-19] MEDS ORDERED: CEFEPIME 2,000 MG in SYRINGE 0 ML IV SCH (07:00)
[2020-01-19] MEDS: CHOLECALCIFEROL 1,000 UNITS 25 MCG TAB PO SCH (10:12)
[2020-01-19] MEDS: CYANOCOBALAMIN 500 MCG TABLET (VITAMIN B-12) PO SCH (10:12)
[2020-01-19] MEDS: SIMVASTATIN 20 MG TAB PO SCH (10:12)
[2020-01-19] MEDS: carvediloL 6.25 MG TAB PO SCH ×2 (10:12→20:41)
[2020-01-19] MEDS: SODIUM CHLORIDE 0.9% 1000ML 1,000 ML IV SCH (10:13)
--- NOTE | 2020-01-19 11:58 | Hospitalist Progress Note ---
Date of Service January 19, 2020 Assessment & Plan (1) Fever: Viral infection /Rhinovirus +ve: -This is a 89 year old with dementia from [facility] for fever of 100.6 and cough pt was initially hypoxic in ER O2 saturation in the mid 80s improved with supplemental 02 at present in room air Ac hypoxemic respiratory failure : resolved no in room air due to above - Cxray no evidence of infiltration D/c Abx -COVID 19 screening negative -droplet precaution until influenza swab/[employer] results return -speech pathology consulted ,appreciate input no evidence of over aspiration diet advanced chronic post nasal drip : ordered for flonase (2) Lactic acidosis: due to dehydration /hypoxia no evidence of sepsis pt recieved IV fluid (3) Oxygen desaturation: - (4) CKD (chronic kidney disease) stage 3, GFR 30-59 ml/min: (5) Cardiac pacemaker in situ: (6) Systolic CHF, chronic: -as per outpatient records that patient had in the 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 -patient is not on any home diuretics stable vol status brief episode of hypoxia , possibly due to viral illness continue the home dose carvedilol 6.26 mg BID, simvastatin 20 mg daily (7) NICM (nonischemic cardiomyopathy): (8) AAA (abdominal aortic aneurysm): - known abdominal aneurysm greater than 7 cm (9) Hereditary hemochromatosis: - (10) Dementia: -patient from [facility]-dementia unit -Code Status is DNR/DNI as per patient's son POA DVT prophylaxis: SCDs for now plan to return back to [facility] possibly tomorrow if remains medically stable Admission and Anticipated Discharge Date Admission Date: January 18, 2020 Subjective elderly male with advanced dementia oriented to person only son present at bedside pt been afebrile occasional dry non productive cough diet advanced after speech eval will D/c IVF Review of Systems Review of Systems: Unobtainable due to mental health condition and Unobtainable due to cognitive status (advanced dementia ) Physical Exam Constitutional: WD/WN, vitals as above + ill appearing and + thin Eyes: + anicteric sclerae ENMT: external ear and nose normal, oropharynx normal Respiratory: + cough Auscultation: no crackles, no rales, no rhonchi and no wheezes Cardiovascular: Rate/Rhythm: regular rate and regular rhythm Gastrointestinal (Abdomen): Percussion/Palpation: abdomen soft; abdomen nontender Neurologic: moves all extremities advanced dementia , Results & Data Results & Data ([facility]) Vital Signs (Past 12 Hours) Vital Signs Temp Pulse Resp BP Pulse Ox 01/19/20 07:16 36.6 C 77 17 120/59 L 94 (1) Dementia Dementia behavioral disturbance: without behavioral disturbance Dementia type: unspecified type Qualified Code(s): F03.90 - Unspecified dementia without behavioral disturbance
[2020-01-19] MEDS ORDERED: VANCOMYCIN CONSULT ACTIVE PRN (18:02)
--- NOTE | 2020-01-19 18:04 | Communication Note ---
Date of Service: January 19, 2020 blood culture : 1 bottle -gram positive cocci in cluster ordered for IV vancomycin Rissa Roman MD
[2020-01-19] MEDS ORDERED: VANCOMYCIN HCL 1,000 MG in SODIUM CHLORIDE 0.9% 250 ML IV SCH (18:15)
[2020-01-19] MEDS ORDERED: VANCOMYCIN HCL 1,500 MG in SODIUM CHLORIDE 0.9% 500 ML IV SCH (18:30)
--- NOTE | 2020-01-19 18:49 | Pharmacy Report ---
Pharmacy Abx Initial Consult - Date of Service January 19, 2020 - Pharmacy Dosing Scope Date of Consult: 01/19/20 Consultation requested by: Dr. Roman Pharmacy is consulted to initiate Vancomcyin IV/PO dosing therapy, order appropriate labs and adjust drug dose/frequency. - Subjective The patient is a 89 year old M admitted on 01/18/20 19:22. - Objective Height: 6 ft Weight: 62.9 kg Vital Signs (Past 12hrs): Vital Signs Temp Pulse Resp BP Pulse Ox 01/19/20 15:48 37.4 C 75 18 114/74 96 01/19/20 07:16 36.6 C 77 17 120/59 L 94 Lab Results (24hrs): Laboratory Tests (24 Hours) 01/19/20 01/19/20 01/18/20 04:59 04:59 18:03 WBC 3.89 L Neut # (Auto) 2.35 Creatinine 1.08 Est Cr Clr Drug Dosing 42.1 Procalcitonin 0.10 Micro Results: 01/18/20 18:03 Anaerobic Blood Culture - Pending Blood 01/18/20 18:57 Aerobic Blood Culture - Pending Blood Anaerobic Blood Culture - Pending - Risk Factors for Resistance * Resident in a [facility] or extended-care facility - Assessment & Plan Assessment 89 year old M brought to ER from [facility] due to patient having fever of 100.6 and cough. Covid 19 screening done which was negative. He had O2 saturation in the mid 80s and seemed short of breath. One set of blood cultures came back positive with Gm + cocci . MRSA PCR pending. Plan Vancomcyin for treatment of bacteremia Vancomycin IV * Patient meets criteria for vancomycin AUC dosing nomogram * AUC/LEIDY is the preferred PK/PD target for vancomycin * Target AUC/LEIDY = 400-600 * AUC guided dosing is effective and associated with decreased risk of nephrotoxicity * Estimated PK Parameters: Vd 0.7 L/kg, Sal hr-1, t1/2 17.8 hr * Loading dose: 1500 mg (~ 24 mg/kg) * Maintenance dose: 1250 mg IV (19.8 mg/kg) every 24 hours * Trough/Random level ordered for 01/21/20 @ 1830 * A less than traditional dose and/or extended dosing interval has/have been selected due to likelihood of drug accumulation in obese patient/patient with h/o CKD. Pharmacy will continue to follow and will adjust dose/frequency as necessary. Thank you.
[2020-01-19] MEDS: MIRTAZAPINE TAB 15 MG TAB PO SCH (20:41)
[2020-01-20] MEDS: carvediloL 6.25 MG TAB PO SCH ×2 (08:28→20:40)
[2020-01-20] MEDS: CYANOCOBALAMIN 500 MCG TABLET (VITAMIN B-12) PO SCH (08:28)
[2020-01-20] MEDS: SIMVASTATIN 20 MG TAB PO SCH (08:29)
[2020-01-20] MEDS: CHOLECALCIFEROL 1,000 UNITS 25 MCG TAB PO SCH (08:29)
[2020-01-20 10:18] LABS: Creatinine Clr Calc Pharmacy 36.3 ml/min; Est GFR (African American) 59.2; Est GFR (Non-African American) 51.1
--- NOTE | 2020-01-20 14:48 | Hospitalist Progress Note ---
Date of Service January 20, 2020 Assessment & Plan (1) Fever: Viral infection /Rhinovirus +ve: presented wt fever and hypoxia -symptoms has resolved ., afebrile , remains in room are Ac hypoxemic respiratory failure : resolved due to above - Cxray no evidence of infiltration D/c Abx -COVID 19 screening negative -speech pathology consulted ,appreciate input no evidence of over aspiration diet advanced chronic post nasal drip : ordered for flonase positive blood culture : gram positive bacterial growth in 1 bottle possible contamination ? empiric abx with IV vanco repeat Blood culture ordered will d/c Vanco if repeat blood culture negative (2) Lactic acidosis: resovled due to dehydration /hypoxia no evidence of sepsis pt recieved IV fluid (3) Oxygen desaturation: - (4) CKD (chronic kidney disease) stage 3, GFR 30-59 ml/min: follow the creatinine (5) Cardiac pacemaker in situ: (6) Systolic CHF, chronic: -stable vol status (7) NICM (nonischemic cardiomyopathy): (8) AAA (abdominal aortic aneurysm): - known abdominal aneurysm greater than 7 cm (9) Hereditary hemochromatosis: - (10) Dementia: -patient from [facility]-dementia unit -Code Status is DNR/DNI as per patient's son POA DVT prophylaxis: SCDs for now plan to return back to [facility] possibly tomorrow if remains medically stable Son updated over phone Admission and Anticipated Discharge Date Admission Date: January 18, 2020 Subjective elderly male with advanced dementia oriented to person only having intermittent agiation. combativeness -due to cont 1:1 observationas needed no cough , no hypoxia noted , vitals been stable Physical Exam Constitutional: WD/WN, vitals as above + ill appearing and + thin Eyes: + anicteric sclerae ENMT: external ear and nose normal, oropharynx normal Respiratory: + cough Auscultation: no crackles, no rales, no rhonchi and no wheezes Cardiovascular: Rate/Rhythm: regular rate and regular rhythm Gastrointestinal (Abdomen): Percussion/Palpation: abdomen soft; abdomen nontender Neurologic: moves all extremities Results & Data Results & Data ([facility]) Vital Signs (Past 12 Hours) Vital Signs Temp Pulse Resp BP Pulse Ox 01/20/20 10:33 119/76 10/05/20 08:43 35.9 C L 75 22 140/105 H 100 (1) Dementia Dementia behavioral disturbance: without behavioral disturbance Dementia type: unspecified type Qualified Code(s): F03.90 - Unspecified dementia without behavioral disturbance
[2020-01-20] MEDS ORDERED: VANCOMYCIN HCL 1,250 MG in SODIUM CHLORIDE 0.9% 250 ML IV SCH (19:00)
[2020-01-20] MEDS: MIRTAZAPINE TAB 15 MG TAB PO SCH (20:37)
[2020-01-21] MEDS: QUETIAPINE FUMARATE 25 MG TABLET PO PRN ×2 (02:40→08:50)
[2020-01-21 07:01] LABS: Est GFR (African American) 76.6; Est GFR (Non-African American) 66.1
[2020-01-21] MEDS: CYANOCOBALAMIN 500 MCG TABLET (VITAMIN B-12) PO SCH (07:38)
[2020-01-21] MEDS: CHOLECALCIFEROL 1,000 UNITS 25 MCG TAB PO SCH (07:38)
[2020-01-21] MEDS: SIMVASTATIN 20 MG TAB PO SCH (07:38)
[2020-01-21] MEDS: carvediloL 6.25 MG TAB PO SCH (07:38)
[2020-01-21] MEDS ORDERED: DOXYCYCLINE HYCLATE 100 MG CAP PO SCH (16:00)
--- NOTE | 2020-01-21 16:29 | Discharge Summary ---
Date of Service January 21, 2020 Admission HPI Per Admitting Provider This is a 89 year old with dementia from [facility] and he was noted in the facility to have fever of 100.6 and cough and so patient was brought to the ED. as per ED provider that initially The patient had an O2 saturation in the mid 80s, he seemed short of breath. admission lactic acid of 3.3, was given IV fluids in the ED and IV Cefepime Patient is verbal but cannot give history because of dementia. History from ED provider notes, and from telephone conversation with patient's son Hernandez Barfield [phone]. Patient cannot participate in full review of systems but does not appear to be in acute pain or acute distress. He does not appear to significantly have dyspnea when assessed by hospitalist Allergies: no known drug allergies as per his son Hernandez Family Health History: patient's mother had dementia as per patient's son Hernandez Primary Care Provider: [facility] Principal Diagnosis Viral bronchitis/ shortness of breath: Resolved Baseline advanced dementia CKD stage III Discharge Exam Constitutional WD/WN, vitals as above Eyes PERRL, conjunctivae normal, anicteric sclerae ENMT external ear and nose normal, oropharynx normal Respiratory Auscultation: no crackles, no rales, no rhonchi and no wheezes Cardiovascular Rate/Rhythm: regular rate and regular rhythm Gastrointestinal (Abdomen) Percussion/Palpation: abdomen soft; abdomen nontender Neurologic moves all extremities Discharge Data Allergies Allergy/AdvReac Type Severity Reaction Status Date / Time No Known Allergies Allergy Verified 01/18/20 18:25 Consultations 01/18/20 19:22 ED Decision to Admit Stat 01/18/20 19:59 Consult Case Management - Discharge Planning Routine 01/18/20 21:30 Consult Case Management - Discharge Planning Routine Hospital Course (1) Fever: Viral infection /Rhinovirus +ve: presented wth fever and hypoxia -symptoms has resolved ., afebrile , remains in room are Ac hypoxemic respiratory failure : Further symptoms, remains in room air, no cough no shortness of breath due to above - Cxray no evidence of infiltration D/c Abx -COVID 19 screening negative -speech pathology consulted ,appreciate input no evidence of over aspiration diet advanced chronic post nasal drip : ordered for flonase positive blood culture : gram positive bacterial growth in 1 bottle possible contamination ? Repeat blood cultures ordered, report pending Patient will be treated empirically with p.o. doxycycline for 5 days, (2) Lactic acidosis: resovled due to dehydration /hypoxia no evidence of sepsis (3) CKD (chronic kidney disease) stage 3, GFR 30-59 ml/min: Renal function at baseline (4) Cardiac pacemaker in situ: (5) Systolic CHF, chronic: -stable vol status (6) NICM (nonischemic cardiomyopathy): (7) AAA (abdominal aortic aneurysm): - known abdominal aneurysm greater than 7 cm (8) Hereditary hemochromatosis: - (9) [facility] Status is DNR/DNI as per patient's son POA DVT prophylaxis: SCDs for now Discharged back to dementia unit [facility] today Total Time Total Time Spent Total Time Spent (In Minutes): 35 min Discharge Plan Discharge Items Patient Disposition: Personal Correction Reason For Visit: SOB Discharge Diagnosis: Viral bronchitis/ shortness of breath: Resolved Baseline advanced dementia CKD stage III Condition on Discharge: Fair Activity: Resume your previous activity Non-emergency contact: Primary Care Provider Call non-emergency contact if: you have any medication questions Follow-up/Referrals: Danielkelli, [Primary Care Provider] - Diet: Regular Diet Texture: Dental soft (bite-sized) Addtl Attending Provider Instructions: Follow-up with your family physician Pending Studies at Discharge: No Stand-Alone Forms: RunRev, Smoking Cessation Skilled Items Patient informed of condition?: Yes DNR: Yes Discharge Level of Care: Other Communicable Disease: Yes Discharge Prognosis: Stable Lines: None Urinary Catheter: No Medications and DC Order Prescriptions: New doxycycline hyclate 100 mg capsule 100 mg PO BID 5 Days Qty: 10 RF: 0 Continued carvedilol 6.25 mg tablet 6.25 mg PO BID RF: 0 cholecalciferol (vitamin D3) 1,000 unit Tablet 1,000 unit PO QAM RF: 0 cyanocobalamin (vitamin B-12) 1,000 mcg Tablet 1,000 mcg PO QAM RF: 0 simvastatin 20 mg tablet 20 mg PO QAM RF: 0 acetaminophen [Tylenol Extra Strength] 500 mg Tablet 1,000 mg PO Q8H MDD 3 GRAM/24 HOURS PRN (Reason: Fever Or Pain) RF: 0 mirtazapine 15 mg tablet 15 mg PO HS RF: 0 mirtazapine 7.5 mg tablet 7.5 mg PO HS RF: 0 diclofenac sodium 1 % gel 2 g TOPICAL QID PRN (Reason: Pain) RF: 0 Discharge Orders: Discharge Order (Routine); Ordered 01/21/20 Ordered By: Rissa Roman Admission Data Admit Date/Time: 01/18/20 19:22 Attending Provider: Rissa Roman Admit Provider: Emmanuel Roldan Primary Care Provider: Tawanda, Other Providers: Darrell Naylor Other Interventions: Discharge Summary Assessment (RN) Last Done: 01/21/20 16:06
[2020-01-21] MEDS ORDERED: VANCOMYCIN TROUGH ONE (18:30)
[2020-01-22] MEDS ORDERED: VANCOMYCIN TROUGH ONE (18:30)
== END 2020-01-21 16:45 | disposition home or self-care (01) | DRG 865 ==
LOC: ED 17:03 → SUATTDRO 19:22 → 3W 19:22

== ENCOUNTER 2020-03-04 12:47 | Inpatient (IN) ==
--- NOTE | 2020-03-04 13:45 | CT Scan Report ---
CT SCAN OF THE BRAIN WITHOUT IV CONTRAST CLINICAL HISTORY: Fall. COMPARISON STUDY: CT of the brain dated 02/24/2020. TECHNIQUE: Unenhanced axial CT scan of the brain is performed from the vertex to the skull base. A do se lowering technique was utilized adhering to the principles of ALARA. CT DOSE: 1138.94 mGycm FINDINGS: Brain parenchyma: There are small and predominantly low attenuation bilateral extra-axial fluid colle ctions which are new from 02/24/2020 and consistent with subdural hemorrhages. This measures up to 10 mm along the right convexity and up to 8 mm along the left convexity. This causes minimal mass effect on the subjacent cortical sulci. There are age-related involutional changes noting mild subcortical and periventricular microangiopathic change. There is no parenchymal hematoma, midline shift, or jesu dence of acute territorial ischemia by CT criteria. Roach-white matter differentiation is preserved. A calcification is again seen in the right cerebellar hemisphere. Ventricles, sulci, cisterns: Prominent secondary to involutional change. Intracranial vasculature: There is atherosclerotic calcification of the cavernous carotid and vertebr al arteries. Calvarium: The skeletal structures are osteopenic. There is no depressed calvarial fracture. Sinuses and mastoids: There is mild mucosal thickening in the right frontal and the anterior right et hmoid sinuses. The remaining visualized paranasal sinuses are clear. There are trace mastoid effusion s. Orbits: The bony orbits are grossly intact. IMPRESSION: 1. There are acute to subacute bilateral low-attenuation subdural hemorrhages as above which are new from 02/24/2020. 2. These cause minimal mass effect on the subjacent cortical sulci. 3. There is no parenchymal hematoma, midline shift, or evidence of acute territorial ischemia by CT laurence smith. ACT 112: Negative or not required by law. Electronically signed by: Evangelista Almaraz M.D. 03/04/2020 1:44 PM
--- NOTE | 2020-03-04 13:58 | CT Scan Report ---
CT cervical spine wo con CLINICAL HISTORY: 89 years-old Male with Pt c/o fall. Acute head and neck injury status post fall COMPARISON: CT head of same day, CT cervical spine 11/28/2019 TECHNIQUE: Multiple axial CT images of the cervical spine were obtained without contrast. A dose low ering technique was utilized adhering to the principles of ALARA. FINDINGS: Degenerative bony fusion of the C2-C4 and C5-C7 vertebral bodies redemonstrated. Demineralized appear ance of the bones. Unchanged 2 mm anterolisthesis C4 on C5 with severe facet arthrosis. Mild convex r ight curvature of the midthoracic spine. No acute fracture or subluxation. Trace mastoid effusions. L eft subclavian pacer. There is no prevertebral edema. Calcified plaque of the carotid bulbs. IMPRESSION: No acute fracture or subluxation. ACT 112: Negative or not required by law. The above report was generated using voice recognition software. It may contain grammatical, syntax o r spelling errors. Electronically signed by: Darell Jarrett M.D. 03/04/2020 1:56 PM
[2020-03-04] MEDS ORDERED: levETIRAcetam 500 MG in 0.9 % SODIUM CHLORIDE 100 ML IV STA (14:14)
--- NOTE | 2020-03-04 14:32 | XRay Report ---
XR pelvis 1-2V routine HISTORY: 89 years-old Male Pt c/o fall acute pelvic pain status post fall COMPARISON: Pelvis radiograph 11/28/2019 TECHNIQUE: AP view of the pelvis FINDINGS: Moderate right and mild left hip posterior arthritis redemonstrated. No acute fracture, dislocation o r avascular necrosis. Vascular calcifications. IMPRESSION: No acute fracture or dislocation. ACT 112: Negative or not required by law. The above report was generated using voice recognition software. It may contain grammatical, syntax o r spelling errors. Electronically signed by: Darell Jarrett M.D. 03/04/2020 2:30 PM
--- NOTE | 2020-03-04 14:33 | XRay Report ---
XR chest 1V portable HISTORY: 89 years-old Male Pt c/o head bleed acute chest and head trauma COMPARISON: Chest radiograph 01/18/2020 TECHNIQUE: Portable AP view of the chest FINDINGS: Moderate enlargement of the cardiac silhouette. Calcified plaque of the thoracic aorta. Left subclavi an pacer. No pneumothorax, pleural effusion or overt pulmonary edema. Mild chronic interstitial coars ening. Degenerative changes of the shoulders and spine. IMPRESSION: No acute process. ACT 112: Negative or not required by law. The above report was generated using voice recognition software. It may contain grammatical, syntax o r spelling errors. Electronically signed by: Darell Jarrett M.D. 03/04/2020 2:32 PM
[2020-03-04 15:10] LABS: Basophils # (auto) 0.03 K/uL (0-0.2); Basophils % (auto) 0.6 %; Eosinophils # (auto) 0.18 K/uL (0-0.5); Eosinophils % (auto) 3.3 %; Hematocrit (blood only) 43.7 % (42-52); Hemoglobin 14.8 g/dL (14.0-18.0); Immature Granulocytes # (auto) 0.01 K/uL (0.00-0.02); Immature Granulocytes % (auto) 0.2 %; Lymphocytes # (auto) 1.25 K/uL (1.2-3.4); Lymphocytes % (auto) 23.1 %; Mean Corpuscular Hemoglobin 31.5 pg (25-34); Mean Corpuscular Hgb Conc 33.9 g/dL (32-36); Mean Platelet Volume 9.9 fL (7.4-10.4); Monocytes # (auto) 0.42 K/uL (0.11-0.59); Monocytes % (auto) 7.7 %; Neutrophils # (auto) 3.53 K/uL (1.4-6.5); Neutrophils % (auto) 65.1 %; Platelet Count 298 K/uL (130-400); RDW Coefficient of Variation 14.7 % (11.5-14.5); RDW Standard Deviation 50.2 fL (36.4-46.3); White Blood Count 5.42 K/uL (4.8-10.8)
[2020-03-04 15:19] LABS: INR 1.2 (0.9-1.1); Prothrombin Time 12.4 Seconds (9.0-12.0)
[2020-03-04 15:29] LABS: Albumin Level 2.8 gm/dl (3.4-5.0); Calcium 9.2 mg/dl (8.5-10.1); Est GFR (African American) 67.6; Est GFR (Non-African American) 58.3; Potassium 4.2 mmol/L (3.5-5.1)
[2020-03-04 15:32] LABS: Albumin Globulin Ratio 0.6 (0.9-2); Bilirubin,Total 0.6 mg/dl (0.2-1); Globulin 4.5 gm/dl (2.5-4.0); Total Protein 7.3 gm/dl (6.4-8.2)
--- NOTE | 2020-03-04 15:39 | Electrocardiogram Report ---
Test Reason : Blood Pressure : / mmHG Vent. Rate : 081 BPM Atrial Rate : 375 BPM P-R Int : 000 ms QRS Dur : 162 ms QT Int : 472 ms P-R-T Axes : 000 -79 088 degrees QTc Int : 548 ms Poor data quality, interpretation may be adversely affected Ventricular-paced rhythm Abnormal ECG When compared with ECG of 16-MAR-2019 16:54, Vent. rate has increased BY 9 BPM Confirmed by Silvio De Jesus ([id number]) on 03/04/2020 3:38:32 PM [facility] Confirmed By:Silvio De Jesus
--- NOTE | 2020-03-04 15:40 | History & Physical Report ---
Date of Service March 04, 2020 Assessment & Plan (1) Subdural hematoma, acute: (2) Fall: This is an 89-year-old male who is significant past medical history of advanced dementia, nonischemic cardiomyopathy, biventricular cardiac pacemaker in situ, systolic CHF, HTN, CKD stage III, LBBB, AAA, monoclonal paraproteinemia who presents to ED status post fall. Head CT: There are acute to subacute bilateral low-attenuation subdural hemorrhages as above which are new from 02/24/2020. ED provider spoke with neurosurg at [facility] who felt surgical intervention not warranted given pt comorbidities and advanced dementia. Discussion held with son who opts for more palliative approach and comfort. Neurosurg at [facility] recommended IV keppra 500mg BID for seizure prophylaxis Admit to med surg consult palliative Dr. Hogue Consult neurology for any further input for supportive/symptom management continue IV keppra 500mg q12 Fall/Asp/Seizure precautions PT/OT/ST (3) HTN (hypertension): bp controlled continue coreg (4) Cardiac pacemaker in situ: pacemaker in place given fall and unknown if syncope will interrogate pacer (5) CKD (chronic kidney disease) stage 3, GFR 30-59 ml/min: baseline Cr 1.1 bun/cr 24 and 1.12 today monitor renal fxn (6) Dementia: Follow psychiatry with [facility] Arteriosclerotic dementia with delusional features Currently mood stable monitor for delirium Continue Remeron (7) HLD (hyperlipidemia): continue statin (8) Hereditary hemochromatosis: H&H stable at 14.8 and 43.7 Monitor (9) DVT prophylaxis: SCD/teds Avoid chemical prophylaxis in setting of SDH Disposition: Admit to medical Follow-up: PCP Dr. Crespo upon discharge Patient was seen and examined in collaboration with Dr. Reddy, please see addendum History of Present Illness Chief Complaint: Fall prior to arrival Primary Care Provider: Tawanda This is an 89-year-old male who is significant past medical history of advanced dementia, nonischemic cardiomyopathy, biventricular cardiac pacemaker in situ, systolic CHF, HTN, CKD stage III, LBBB, AAA, monoclonal paraproteinemia who presents to ED status post fall. History provided by son as patient unable to provide history given advanced dementia. Son was alerted by [facility] that patient sustained a fall today. He was therefore brought to ED for further evaluation. CT head revealed acute to subacute bilateral low-attenuation subdural hemorrhages with minimal mass-effect on subjacent cortical sulci. Of significance patient recently hospitalized 01/17-01/20 secondary to acute hypoxic respiratory failure in setting of rhinovirus. He was then discharged back to [facility]. He does have history of frequent falls. At baseline he is ambulatory without assist device. Son states he was a prior, "[employer]." According to son prior to today he has been very mobile. 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 At baseline he typically has a good appetite eats, "liver and onions every Monday night." ROS unobtainable from patient given current condition. Allergies Allergy/AdvReac Type Severity Reaction Status Date / Time No Known Allergies Allergy Verified 03/04/20 14:23 Home Medications Medication Instructions Recorded Confirmed Type carvedilol 6.25 mg PO BID 07/17/18 03/04/20 History cholecalciferol (vitamin D3) 1,000 unit PO QAM 07/17/18 03/04/20 History cyanocobalamin (vitamin B-12) 1,000 mcg PO QAM 07/17/18 03/04/20 History simvastatin 20 mg PO QAM 03/16/19 03/04/20 History acetaminophen [Tylenol Extra 1,000 mg PO Q8H PRN MDD 3 GRAM/24 11/10/19 03/04/20 History Strength] HOURS diclofenac sodium 2 g TOPICAL QID PRN 01/18/20 03/04/20 History mirtazapine 7.5 mg PO HS 01/18/20 03/04/20 History mirtazapine 15 mg PO HS 01/18/20 03/04/20 History Past Med/Surg History Medical History (Updated 03/04/20 @ 16:01 by Lorie John PA-C) AAA (abdominal aortic aneurysm) >7cm Abnormal CT of brain CKD (chronic kidney disease) stage 3, GFR 30-59 ml/min baseline cr 1.4 Dementia Elevated transaminase level Elevated troponin Fall Hereditary hemochromatosis HLD (hyperlipidemia) HTN (hypertension) Leukocytosis Monoclonal paraproteinemia NICM (nonischemic cardiomyopathy) Rhabdomyolysis Subarachnoid hemorrhage after traumatic injury without open intracranial wound, with prolonged loss of consciousness and return to pre-existing level of consciousness Systolic CHF, chronic Surgical History History of cardiac pacemaker History of tonsillectomy Family History Father Myocardial infarction Social History Smoking Status: Unknown if ever smoked Tobacco Type: Pipe and Cigars Hx Alcohol Use: No Hx Substance Use: No Preferred Language: Khmer Communication Ability: Impaired Communication Ability Comment: Dementia Hearing Ability: Hard of Hearing Client Onboarding Analyst Required: No Beliefs That Will Affect Care: None Current Living Situation: Alone Current Living Situation Comment: Son lives across street, walks with cane/walker Other Information That Helps Us Care for You: Yes (Resides at [facility]) Feels Safe at Home: Yes Safety Concerns: Feels Safe At This Time Assistive Devices: Denture - Upper, Denture - Lower, Glasses and Walker Review of Systems Review of Systems: Unobtainable due to cognitive status Physical Exam Physical Exam: Constitutional: Elderly, thin, cachectic, male, vitals as above, NAD, sitting up in bed, verbalizes but difficult to understand Head: Mild temporal wasting, normocephalic, Atraumatic Eyes: PERRL, conjunctivae normal, anicteric sclerae ENMT: external ear and nose normal, oropharynx normal, dry mucous membrane Neck: trachea midline, no thyromegaly normal visual inspection Respiratory: normal respiratory effort, lungs clear to auscultation, no wheeze, rales, rhonchi. Normal insp/exp effort, no accessory muscle use Cardiovascular: RRR, no murmur, no edema Vessels: no JVD or carotid bruit Chest: Left anterior chest wall pacemaker noted otherwise normal inspection of chest Abdomen: normal bowel sounds, soft, nontender, no hepatosplenomegaly Musculoskeletal: no cyanosis or clubbing, left upper extremity clenched to chest wall, otherwise has active range of motion to all other extremities and strength 5/5 Skin: no rashes, warm and dry mild turgor Neurologic: PERRL, EOMI, accommodation nl, no face palsy, no dysarthria CN's II-XI intact bilaterally and moves all extremities Psychiatric: Alert but not oriented, euthymic affect : deferred Results & Data Results & Data ([facility]) Vital Signs (Past 12 Hours) Vital Signs Temp Pulse Resp BP Pulse Ox 03/04/20 15:24 94 03/04/20 12:45 36.5 C 82 16 133/78 98 Laboratory Results Short CBC 03/04/20 Range/Units 14:47 WBC 5.42 (4.8-10.8) K/uL Hgb 14.8 (14.0-18.0) g/dL Hct 43.7 (42-52) % Plt Count 298 (130-400) K/uL BMP 03/04/20 14:47 Sodium 140 Potassium 4.2 Chloride 107 Carbon Dioxide 30 BUN 24 H Creatinine 1.12 Glucose 85 Calcium 9.2 Liver Function 03/04/20 Range/Units 14:47 Total Bilirubin 0.6 (0.2-1) mg/dl AST 27 (15-37) U/L ALT 28 (12-78) U/L Alkaline Phosphatase 129 H (45-117) U/L Albumin 2.8 L (3.4-5.0) gm/dl Diagnostic Findings Pelvis Xray: IMPRESSION: No acute fracture or dislocation CXR: FINDINGS: Moderate enlargement of the cardiac silhouette. Calcified plaque of the thoracic aorta. Left subclavian pacer. No pneumothorax, pleural effusion or overt pulmonary edema. Mild chronic interstitial coarsening. Degenerative changes of the shoulders and spine. IMPRESSION: No acute process. Head CT: IMPRESSION: 1. There are acute to subacute bilateral low-attenuation subdural hemorrhages as above which are new from 02/24/2020. 2. These cause minimal mass effect on the subjacent cortical sulci. 3. There is no parenchymal hematoma, midline shift, or evidence of acute territorial ischemia by CT criteria. Cpsine CT: IMPRESSION: No acute fracture or subluxation. Medications Administered Discontinued Medications Levetiracetam 500 mg/ Sodium (Chloride) 105 mls @ 440 mls/hr IV NOW STA Stop: 03/04/20 14:28 Last Admin: 03/04/20 15:22 Dose: 440 mls/hr Documented by: [id number] ECG Rate (beats per minute): 81 Findings: + paced rhythm Code Status & VTE Plan Code Status DNR/DNI VTE Prophylaxis Plan VTE Prophylaxis will be ordered: Yes Reason for no VTE drug order: Contraindicated Supervising Physician Co-Signing Physician Notes Patient is an 89-year-old man with history of advanced dementia, systolic CHF, CKD stage III, hypertension and other medical problems presents after history of fall. Patient is unable to give any history secondary to advanced dementia. Most of the history is obtained from patient's son. Please review HPI for complete details of presentation. No known history of headache, change in vis ion, chest pain, shortness of breath. CT head showed acute to subacute bilateral subdural hemorrhages, causing minimal mass-effect on the subsequent cortical sulci. ED physician discussed with neurosurgery in general, given multiple comorbidities patient was thought to be not a surgical candidate. Patient's son prefers no aggressive measures, procedures or surgery. On exam patient is thin, frail, EOMI, normocephalic, lungs clear to auscultation,+ pacemaker, no pedal edema, S1, S2, no obvious murmur, left upper extremity clenched--chronic as per patient's son, follows simple commands, grossly no focal neurologic deficits. Patient is admitted for management of subdural hemorrhage secondary to fall. Will repeat CT head tomorrow. Agree with IV Keppra to prevent seizures. Will consider steroids given mass-effect. Neurology consulted for further input. Also consulted palliative care to address goals of care. Fall, aspiration precautions. PT/OT prior to discharge. I personally reviewed the record. Patient is interviewed and examined at bedside. Patient's care is coordinated with Lorie John PA-C. Please refer to the documentation above for details of patient's presentation and for discussion of other issues. (1) Dementia Dementia behavioral disturbance: without behavioral disturbance Dementia type: unspecified type Qualified Code(s): F03.90 - Unspecified dementia without behavioral disturbance (2) HLD (hyperlipidemia) Hyperlipidemia type: unspecified Qualified Code(s): E78.5 - Hyperlipidemia, unspecified (3) HTN (hypertension) Hypertension type: essential hypertension Qualified Code(s): I10 - Essential (primary) hypertension (4) Fall Encounter type: initial encounter Qualified Code(s): W19.XXXA - Unspecified fall, initial encounter
[2020-03-04] MEDS ORDERED: ACETAMINOPHEN 500 MG TAB PO PRN (17:16)
[2020-03-04] MEDS ORDERED: ONDANSETRON INJ 2 MG/ML 2 ML VIAL IV PRN (17:16)
[2020-03-04] MEDS ORDERED: DICLOFENAC SOD 1% GEL 100 GM TUBE EXT PRN (17:16)
[2020-03-04] MEDS: carvediloL 6.25 MG TAB PO SCH (21:41)
[2020-03-04] MEDS: MIRTAZAPINE TAB 15 MG TAB PO SCH ×2 (21:41)
[2020-03-04] MEDS: levETIRAcetam 500 MG in 0.9 % SODIUM CHLORIDE 100 ML IV SCH (21:57)
--- NOTE | 2020-03-05 08:21 | CT Scan Report ---
CT head/brain wo con CLINICAL HISTORY: 89 years-old Male with repeat b/l SDH. All of study in a patient with bilateral castaneda bdural hematomas TECHNIQUE: Multiple axial CT images of the head were obtained without contrast. A dose lowering tech nique was utilized adhering to the principles of ALARA. CT DOSE: 614.27 mGy.cm COMPARISON: Head CT 03/04/2020. FINDINGS: Mildly motion degraded exam. Age-related involutional changes. Patchy white matter hypodensities sugg est chronic microvascular ischemic disease. Cerebral vascular calcifications. Bilateral extra-axial s ubdural collections are redemonstrated measuring 8 mm on the right, unchanged and 7 mm on the left, p reviously 8 mm. There is no midline shift or new intracranial hemorrhage. No hydrocephalus or acute t erritorial infarct. No intracranial mass. No acute calvarial fracture. Mastoid air cells and middle ear cavities are clear. Mild mucosal thicke britton of the ethmoid air cells and nasal turbinates. IMPRESSION: 1. Stable to slightly decreased size of the bilateral low attenuating subdural collections suggestive of subacute hematomas. 2. No midline shift. ACT 112: Negative or not required by law. The above report was generated using voice recognition software. It may contain grammatical, syntax o r spelling errors. Electronically signed by: Darell Jarrett M.D. 03/05/2020 8:19 AM
[2020-03-05] MEDS: carvediloL 6.25 MG TAB PO SCH ×2 (09:20→21:32)
[2020-03-05] MEDS: SIMVASTATIN 20 MG TAB PO SCH (09:20)
[2020-03-05] MEDS: levETIRAcetam 500 MG in 0.9 % SODIUM CHLORIDE 100 ML IV SCH ×2 (10:22→21:31)
--- NOTE | 2020-03-05 11:07 | Palliative Care Consultation ---
Date of Consultation March 05, 2020 Assessment & Plan (1) Palliative care encounter: This is an 89-year-old male who presented to the [facility] s/p fall. He has a significant PMH that includes: advanced dementia, non-ischemic cardiomyopathy, bi-ventricular cardiac pacemaker, systolic CHF, HTN, CKD stage III, LBBB, AAA, monoclonal paraproteinemia. A head CT was performed and results indicated subacute bilateral SDH. He had a recent head CT on 02/23 that was unremarkable. When the patient was in the ED, a neurosurgical consultation occurred over the phone with [facility] who determined that surgical intervention was not recommended due to extensive comorbidities, including advanced dementia. The patient was placed on seizure prophylaxis: Keppra IV 500 mg BID. Palliative Care was consulted to discuss goals of care. I met with the patient in room 261. He did open his eyes to my voice. He was unable to follow my finger or follow any commands. He was non verbal during my encounter, but did groan a few times. I spoke with the patients son, Eduardo, who was granted supervisory it specialist clearance to visit the patient. The patient was more awake the second time I saw him, taking a few small bites and even drinking some tea. Some intermittent coughing was noted during the encounter with eating. Speech Therapy was visiting with the patient as well for a ST consult. I had a lengthy conversation with Eduardo in a private waiting area, Halie from case management joined part way through the conversation. 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 His son has the same profession and feels he is honoring his Dads legacy. The pt has been a resident at [facility] since July 2019. Eduardo has been able to have some window visitation. In discussion regarding goals of care for his father, he knows that he would not want any aggressive measures taken in the event he was unable to get back to his baseline. For now, confirmed patient is DNR/DNI. Ok to continue current care and work to return the patient to [facility] with Hospice Services which was discussed with case managment. A list of hospice agencies was provided and the patients son said that he would make a decision regarding hospice agency by tomorrow. Patient son understanding that his mental status can fluctuate quickly with ICH. POLST form completed indicating DNR/DNI, HEATING AND VENTILATION ENGINEER, trial abx, and no artificial nutrition/hydration. Pt son OK for patient to start receiving comfort medications should he decline overnight. No new orders placed at this time. Palliative Care will continue to follow accordingly. (2) Dementia: At baseline, pt was in a memory care unit at [facility]. Significant decline noted over the past year. FAST scale All of 6 and up to 7c. 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 (4) Systolic CHF, chronic: (5) Seizure after head injury: On prophylaxis Keppra IV 500 mg BID. History of Present Illness Reason for Consultation: Goals of care Requesting Physician: Dr. Cormier Attending Physician: Hannah Cormier MD History of Present Illness This is an 89-year-old male who presented to the [facility] s/p fall. He has a significant PMH that includes: advanced dementia, non-ischemic cardiomyopathy, bi-ventricular cardiac pacemaker, systolic CHF, HTN, CKD stage III, LBBB, AAA, monoclonal paraproteinemia. A head CT was performed and results indicated subacute bilateral SDH. He had a recent head CT on 02/23 that was unremarkable. When the patient was in the ED, a neurosurgical consultation occurred over the phone with [facility] who determined that surgical intervention was not recommended due to extensive comorbidities, including advanced dementia. The patient was placed on seizure prophylaxis: Keppra IV 500 mg BID. Palliative Care was consulted to discuss goals of care. Please see A/P for further details. Thank you kindly for involving the palliative care team with this individual. Allergies Allergy/AdvReac Type Severity Reaction Status Date / Time No Known Allergies Allergy Verified 03/04/20 14:23 Home Medications Medication Instructions Recorded Confirmed Type carvedilol 6.25 mg PO BID 07/17/18 03/04/20 History cholecalciferol (vitamin D3) 1,000 unit PO QAM 07/17/18 03/04/20 History cyanocobalamin (vitamin B-12) 1,000 mcg PO QAM 07/17/18 03/04/20 History simvastatin 20 mg PO QAM 03/16/19 03/04/20 History acetaminophen [Tylenol Extra 1,000 mg PO Q8H PRN MDD 3 GRAM/24 11/10/19 03/04/20 History Strength] HOURS diclofenac sodium 2 g TOPICAL QID PRN 01/18/20 03/04/20 History mirtazapine 7.5 mg PO HS 01/18/20 03/04/20 History mirtazapine 15 mg PO HS 01/18/20 03/04/20 History Patient History Medical History (Updated 03/05/20 @ 11:06 by EBENEZER Raman) AAA (abdominal aortic aneurysm) >7cm Abnormal CT of brain CKD (chronic kidney disease) stage 3, GFR 30-59 ml/min baseline cr 1.4 Dementia Elevated transaminase level Elevated troponin Fall Hereditary hemochromatosis HLD (hyperlipidemia) HTN (hypertension) Leukocytosis Monoclonal paraproteinemia NICM (nonischemic cardiomyopathy) Palliative care encounter Rhabdomyolysis Seizure after head injury Subarachnoid hemorrhage after traumatic injury without open intracranial wound, with prolonged loss of consciousness and return to pre-existing level of consciousness Systolic CHF, chronic Surgical History History of cardiac pacemaker History of tonsillectomy Family History Father Myocardial infarction Social History Smoking Status: Unknown if ever smoked Tobacco Type: Pipe and Cigars Hx Alcohol Use: No Hx Substance Use: No Preferred Language: Citizen Of [place] Communication Ability: Impaired Communication Ability Comment: Dementia Hearing Ability: Hard of Hearing Promotions Officer Required: No Beliefs That Will Affect Care: None marital status: Unknown Current Living Situation: Alone Current Living Situation Comment: Son lives across street, walks with cane/walker Other Information That Helps Us Care for You: Yes (Resides at [facility]) Feels Safe at Home: Yes Safety Concerns: Feels Safe At This Time Assistive Devices: Denture - Upper, Denture - Lower, Glasses and Walker Review of Systems Review of Systems: Unobtainable due to cognitive status Physical Exam Constitutional: + ill appearing, + thin and + frail appearing; + uncooperative Eyes: + EOM not intact Neck: trachea midline, no thyromegaly Respiratory: normal respiratory effort Auscultation: + diminished lung sounds Cardiovascular: Rate/Rhythm: regular rate Heart Sounds: normal S1 and normal S2 Extremities: no edema Gastrointestinal (Abdomen): normal bowel sounds, soft, nontender, no hepatosplenomegaly Skin: no rashes, warm and dry + dry skin Genitourinary: ayoub catheter Results & Data ([facility]) Vital Signs (Past 12 Hours) Vital Signs Temp Pulse Resp BP Pulse Ox 03/05/20 07:33 36.6 C 63 16 129/92 95 03/04/20 23:10 36.8 C 72 18 108/70 95 PG Care Time/CCT Total # of Minutes Spent Total Time Spent with Patient: Total time spent is greater than 50% in coordination of care (as documented) at patient's floor/unit and/or counseling patient: 100 Coding Level of Care Code 25679 Inpt Consult Level 4 Diagnoses Palliative care encounter Z51.5 Dementia F03.90 Subdural hematoma, acute S06.5X9A Systolic CHF, chronic I50.22 Seizure after head injury R56.1 Time Spent (min) 100 Time Spent Midlevel Total time spent 100 minutes with > 50% of that time spent assessing the patient, discussing goals of care with the patient, collaborating with the IDT and completing a POLST form.
--- NOTE | 2020-03-05 15:07 | Neurology Consultation ---
Date of Consultation March 05, 2020 Assessment & Plan (1) Subdural hematoma, acute: 1. no clinical evidence of seizure so no real need for the Keppra 2. CT head- no midline shift -chronic SDH no need to repeat unless MS change 3. palliative medicine - son agrees he will return to [facility] on hospice care 4. fall precautions 5. medical management - continue essential medications 6. no follow up appointment needed with neurology 7. will sign off for now. call with questions concerns. Present on Admission?: Yes Supervising Physician Co-Signing Physician Notes An 89 year old male with advanced dementia and subacute to chronic appearing bilateral subdural hematoma's. Palliative care consulted family desire to pursue hospice / comfort care. Ok to stop Keppra as low suspicion for seizure and make cause worsening agitation. Neurology will sign off for now. Please contact us with any additional questions or concerns. History of Present Illness Reason for Consultation: b/l SDH, palliative approach Requesting Physician: Hannah Cormier MD Attending Physician: Hannah Cormier MD History of Present Illness Ruiz is an 89 year old male with PMH- advanced dementia, nonischemic cardiomyopathy, biventricular cardiac pacemaker in situ, systolic CHF, HTN, CKD stage III, LBBB, AAA, monoclonal paraproteinemia who presented to the ED after a fall. Son was alerted by [facility] that patient sustained a fall today. CT head revealed acute to subacute bilateral low-attenuation subdural hemorrhages with minimal mass-effect on subjacent cortical sulci. He had been hospitalized from 01/17-01/20 secondary to acute hypoxic respiratory failure in setting of rhinovirus and discharged to [facility]. At baseline he is ambulatory without assist device but has had frequent falls. 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 Neurosurgery was contacted in [place] but did not offer intervention due to his advanced age and commodities. His son would like to have palliative medicine involved and return to [facility] on hospice care. He is awake but does not cooperate with exam and a bit agitated. He states he has no pain. full ROS could not be preformed Allergies Allergy/AdvReac Type Severity Reaction Status Date / Time No Known Allergies Allergy Verified 03/04/20 14:23 Home Medications Medication Instructions Recorded Confirmed Type carvedilol 6.25 mg PO BID 07/17/18 03/04/20 History cholecalciferol (vitamin D3) 1,000 unit PO QAM 07/17/18 03/04/20 History cyanocobalamin (vitamin B-12) 1,000 mcg PO QAM 07/17/18 03/04/20 History simvastatin 20 mg PO QAM 03/16/19 03/04/20 History acetaminophen [Tylenol Extra 1,000 mg PO Q8H PRN MDD 3 GRAM/24 11/10/19 03/04/20 History Strength] HOURS diclofenac sodium 2 g TOPICAL QID PRN 01/18/20 03/04/20 History mirtazapine 7.5 mg PO HS 01/18/20 03/04/20 History mirtazapine 15 mg PO HS 01/18/20 03/04/20 History Patient History Medical History (Updated 03/05/20 @ 11:06 by EBENEZER Raman) AAA (abdominal aortic aneurysm) >7cm Abnormal CT of brain CKD (chronic kidney disease) stage 3, GFR 30-59 ml/min baseline cr 1.4 Dementia Elevated transaminase level Elevated troponin Fall Hereditary hemochromatosis HLD (hyperlipidemia) HTN (hypertension) Leukocytosis Monoclonal paraproteinemia NICM (nonischemic cardiomyopathy) Palliative care encounter Rhabdomyolysis Seizure after head injury Subarachnoid hemorrhage after traumatic injury without open intracranial wound, with prolonged loss of consciousness and return to pre-existing level of consciousness Systolic CHF, chronic Surgical History History of cardiac pacemaker History of tonsillectomy Family History Father Myocardial infarction Social History Smoking Status: Unknown if ever smoked Tobacco Type: Pipe and Cigars Hx Alcohol Use: No Hx Substance Use: No Preferred Language: Chinese Communication Ability: Impaired Communication Ability Comment: Dementia Hearing Ability: Hard of Hearing 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 Required: No Beliefs That Will Affect Care: None marital status: Unknown Current Living Situation: Alone Current Living Situation Comment: Son lives across street, walks with cane/walker Other Information That Helps Us Care for You: Yes (Resides at [facility]) Feels Safe at Home: Yes Safety Concerns: Feels Safe At This Time Assistive Devices: Denture - Upper, Denture - Lower and Glasses Review of Systems Review of Systems: Unobtainable due to mental health condition and Unobtainable due to cognitive status Physical Exam Physical Exam: Gen: sleeping when entering the room. Lungs course breath sounds CV RRR moves all ext spontaneously will not cooperated with exam appear somewhat agitated does not answer orientation questions Results & Data ([facility]) Vital Signs (Past 12 Hours) Vital Signs Temp Pulse Resp BP Pulse Ox 03/05/20 07:33 36.6 C 63 16 129/92 95 Laboratory Results Abnormal lab results 03/04/20 03/04/20 Range/Units 14:47 14:47 PT 12.4 H (9.0-12.0) Seconds INR 1.2 H (0.9-1.1) BUN 24 H (7-18) mg/dl BUN/Creatinine Ratio 21.0 H (10-20) Alkaline Phosphatase 129 H (45-117) U/L Albumin 2.8 L (3.4-5.0) gm/dl Globulin 4.5 H (2.5-4.0) gm/dl Albumin/Globulin Ratio 0.6 L (0.9-2) Diagnostic Findings CT head today-. Stable to slightly decreased size of the bilateral low attenuating subdural collections suggestive of subacute hematomas. No midline shift.
--- NOTE | 2020-03-05 18:18 | Emergency Department Note ---
History of Present Illness General Chief complaint: Fall Stated complaint: FALL, ABRASION TO ARM Time Seen by Provider: 03/04/20 12:50 Source: patient, family (son), EMS, RN notes reviewed and old records reviewed Mode of arrival: EMS Limitations: physical limitation (dementia) History of Present Illness Provider complaint: fall Onset (ago): hour(s) less than 1 Location: pelvis Maximum Pain Intensity: 0 Current Pain Intensity: 0 This is an 89-year-old male who presents the emergency department after trying to sit down on a chair and missing the chair and falling on the ground. Per EMS report the patient landed hard on his butt. The patient himself has dementia and has no complaints. Per report the patient also did not hit his head. Home Medications Medication Instructions Recorded Confirmed Type carvedilol 6.25 mg PO BID 07/17/18 03/04/20 History cholecalciferol (vitamin D3) 1,000 unit PO QAM 07/17/18 03/04/20 History cyanocobalamin (vitamin B-12) 1,000 mcg PO QAM 07/17/18 03/04/20 History simvastatin 20 mg PO QAM 03/16/19 03/04/20 History acetaminophen [Tylenol Extra 1,000 mg PO Q8H PRN MDD 3 GRAM/24 11/10/19 03/04/20 History Strength] HOURS diclofenac sodium 2 g TOPICAL QID PRN 01/18/20 03/04/20 History mirtazapine 7.5 mg PO HS 01/18/20 03/04/20 History mirtazapine 15 mg PO HS 01/18/20 03/04/20 History Allergies Allergy/AdvReac Type Severity Reaction Status Date / Time No Known Allergies Allergy Verified 03/04/20 14:23 Past Med/Surg History Medical History (Updated 03/05/20 @ 11:06 by EBENEZER Raman) AAA (abdominal aortic aneurysm) >7cm Abnormal CT of brain CKD (chronic kidney disease) stage 3, GFR 30-59 ml/min baseline cr 1.4 Dementia Elevated transaminase level Elevated troponin Fall Hereditary hemochromatosis HLD (hyperlipidemia) HTN (hypertension) Leukocytosis Monoclonal paraproteinemia NICM (nonischemic cardiomyopathy) Palliative care encounter Rhabdomyolysis Seizure after head injury Subarachnoid hemorrhage after traumatic injury without open intracranial wound, with prolonged loss of consciousness and return to pre-existing level of consciousness Systolic CHF, chronic Surgical History History of cardiac pacemaker History of tonsillectomy Family History Father Myocardial infarction Social History Smoking Status: Unknown if ever smoked Tobacco Type: Pipe and Cigars Hx Alcohol Use: No Hx Substance Use: No Preferred Language: Romanian Communication Ability: Impaired Communication Ability Comment: Dementia Hearing Ability: Hard of Hearing 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 GENERAL - 89-year-old male appearing stated age who is in no acute distress. Pt yells out when moved from litter to bed but otherwise does not appear to be in any pain on exam SKIN - Without rashes. HEAD - NC/AT. EYES - PERRL with EOMI bilaterally. Sclera anicteric. Palpebral conjunctiva pink and moist with no injection noted. EARS - No deformities of external structures noted on gross examination bilaterally. No pain elicited with palpation of the tragus bilaterally. External auditory canals without discharge or otorrhea. Tympanic membranes pearly roach without retraction or bulging. No fluid or purulent material visualized behind the TM. Handle of malleus, umbo, cone of light, pars tensa/flaccid all easily visualized. NOSE - Midline and without cyanosis. No epistaxis or purulent drainage noted. Septum midline without deviation or septal hematoma noted. MOUTH/OROPHARYNX - Without perioral cyanosis. Buccal mucosa pink and moist and without leukoplakia. Tongue midline with equal elevation of palate bilaterally. No tonsillar hypertrophy, erythema, or exudates noted. dentition noted. NECK - Neck with FROM. Supple to palpation. lymphadenopathy noted. No nuchal rigidity. LUNGS - Chest wall symmetric without accessory muscle use, intercostals retractions, or central cyanosis. Normal vesicular breath sounds CTA B/L. No wheezes, rales, or rhonchi appreciated. CARDIAC - RRR with S1/S2. No murmur, rubs, or gallops appreciated. ABDOMEN - Abdominal contour without pulsations or visible masses. BS normoactive all four quadrants. No tenderness, palpable masses, hepatosplenomegaly, or ascites noted. EXTREMITIES - No clubbing or peripheral cyanosis. No pretibial edema present. +3/5 radial, posterior tibial, and dorsalis pedis pulses palpated throughout. +5/5 strength noted in UE/LE bilaterally. NEUROLOGIC - Cranial nerves II through XII grossly intact. Sensory intact to light touch throughout. Patellar reflexes +2/4. Course Administered Medications Carvedilol (Carvedilol 6.25 Mg Tab) 6.25 mg PO BID DILLON Stop: 04/03/20 20:59 Last Admin: 03/05/20 09:20 Dose: Not Given Documented by: [id number] Admin: 03/04/20 21:41 Dose: 6.25 mg Documented by: [id number] Levetiracetam 500 mg/ Sodium (Chloride) 105 mls @ 440 mls/hr IV Q12H DILLON Stop: 04/03/20 21:59 Last Infusion: 03/05/20 10:37 Dose: 0 mls/hr Documented by: [id number] Admin: 03/05/20 10:22 Dose: 440 mls/hr Documented by: [id number] Infusion: 03/04/20 22:12 Dose: 0 mls/hr Documented by: [id number] Admin: 03/04/20 21:57 Dose: 440 mls/hr Documented by: [id number] Mirtazapine (Mirtazapine Tab 15 Mg Tab) 15 mg PO HS DILLON Stop: 04/03/20 20:59 Last Admin: 03/04/20 21:41 Dose: 15 mg Documented by: [id number] Mirtazapine (Mirtazapine Tab 15 Mg Tab) 7.5 mg PO HS DILLON Stop: 04/03/20 20:59 Last Admin: 03/04/20 21:41 Dose: 7.5 mg Documented by: [id number] Simvastatin (Simvastatin 20 Mg Tab) 20 mg PO QA DILLON Stop: 04/04/20 08:59 Last Admin: 03/05/20 09:20 Dose: Not Given Documented by: [id number] Discontinued Medications Levetiracetam 500 mg/ Sodium (Chloride) 105 mls @ 440 mls/hr IV NOW STA Stop: 03/04/20 14:28 Last Infusion: 03/04/20 16:00 Dose: 0 mls/hr Documented by: [id number] Admin: 03/04/20 15:22 Dose: 440 mls/hr Documented by: [id number] Critical Care Time I have personally spent greater than 30 minutes of critical care time in the direct management of this patient. This includes bedside care, interpretation of diagnostic studies, and testing, discussion with consultants, patient, and family members, and other required patient management activities. This 30 minutes is in excess of all separately billable procedures. Medical Decision Making Differential Diagnosis Fracture, dislocation, contusion, intra-abdominal, pneumothorax, intrathoracic, intracranial, neurologic, compartment syndrome, rhabdomyolysis, as well as other pathologies. Medical Records Attestation: I reviewed the patient's medical records. Home Medications Current Medication List: was personally reviewed by me Laboratory Data Attestation: I reviewed the patient's lab results. Result diagrams: 03/04/20 14:47 03/04/20 14:47 Lab Results 03/04/20 03/04/20 03/04/20 Range/Units 14:47 14:47 14:47 WBC 5.42 (4.8-10.8) K/uL RBC 4.70 (4.7-6.1) M/uL Hgb 14.8 (14.0-18.0) g/dL Hct 43.7 (42-52) % MCV 93.0 (80-100) fL MCH 31.5 (25-34) pg MCHC 33.9 (32-36) g/dL RDW Std Deviation 50.2 H (36.4-46.3) fL RDW Coeff of Malik 14.7 H (11.5-14.5) % Plt Count 298 (130-400) K/uL MPV 9.9 (7.4-10.4) fL Immature Gran % (Auto) 0.2 % Neut % (Auto) 65.1 % Lymph % (Auto) 23.1 % [place] % (Auto) 7.7 % Eos % (Auto) 3.3 % Baso % (Auto) 0.6 % Neut # (Auto) 3.53 (1.4-6.5) K/uL Lymph # (Auto) 1.25 (1.2-3.4) K/uL [place] # (Auto) 0.42 (0.11-0.59) K/uL Eos # (Auto) 0.18 (0-0.5) K/uL Baso # (Auto) 0.03 (0-0.2) K/uL Immature Gran # (Auto) 0.01 (0.00-0.02) K/uL PT 12.4 H (9.0-12.0) Seconds INR 1.2 H (0.9-1.1) Sodium 140 (136-145) mmol/L Potassium 4.2 (3.5-5.1) mmol/L Chloride 107 (98-107) mmol/L Carbon Dioxide 30 (21-32) mmol/L Anion Gap 3.0 (3-11) BUN 24 H (7-18) mg/dl Creatinine 1.12 (0.6-1.4) mg/dl Est Cr Clr Drug Dosing 40.0 ml/min Est GFR ( Amer) 67.6 Est GFR (Non-Af Amer) 58.3 BUN/Creatinine Ratio 21.0 H (10-20) Glucose 85 (70-99) mg/dl Calcium 9.2 (8.5-10.1) mg/dl Total Bilirubin 0.6 (0.2-1) mg/dl AST 27 (15-37) U/L ALT 28 (12-78) U/L Alkaline Phosphatase 129 H (45-117) U/L Total Protein 7.3 (6.4-8.2) gm/dl Albumin 2.8 L (3.4-5.0) gm/dl Globulin 4.5 H (2.5-4.0) gm/dl Albumin/Globulin Ratio 0.6 L (0.9-2) Imaging Data Radiologist's Impression: [facility], [id number] XRay Report Patient: TONY VASQUEZ Date: 03/04/20MR#: [id number]: [facility] ID:[id number]: ELMCROFTBirth Date: [address] [place] [address] Zip: [place], [place] [address]Tuv: 89Location: EDSex: MRoom/Bed:Att Phy:Diagnosis: FALL, ABRASION TO ARMPri Phy: ElroftService Date: 03/04/20 Phy:Interpreting Phy: Mina Escobar Phy: Ordering Phy: Seun Ibarra MD cc: ~ XR pelvis 1-2V routine HISTORY: 89 years-old Male Pt c/o fall acute pelvic pain status post fall COMPARISON: Pelvis radiograph 11/28/2019 TECHNIQUE: AP view of the pelvis FINDINGS: Moderate right and mild left hip posterior arthritis redemonstrated. No acute fracture, dislocation or avascular necrosis. Vascular calcifications. IMPRESSION: No acute fracture or dislocation. ACT 112: Negative or not required by law. The above report was generated using voice recognition software. It may contain grammatical, syntax or spelling errors. Electronically signed by: Darell Jarrett M.D. 03/04/2020 2:30 PM Dictated: 03/04/20 1429Transcribed: 03/04/20 1429 [facility], [id number] XRay Report Patient: TONY VASQUEZ Date: 03/04/20#: [id number]: [facility] ID:[id number]: ELMCROFTBirth Date: [address] [place] [address] Zip: [place], [place] [address]Hte: 89Location: EDSex: MRoom/Bed:Att Phy:Diagnosis: FALL, ABRASION TO ARMPri Phy: ElroftService Date: 03/04/20 Phy:Interpreting Phy: Mina Escobar Phy: Ordering Phy: Seun Ibarra MD cc: ~ XR chest 1V portable HISTORY: 89 years-old Male Pt c/o head bleed acute chest and head trauma COMPARISON: Chest radiograph 01/18/2020 TECHNIQUE: Portable AP view of the chest FINDINGS: Moderate enlargement of the cardiac silhouette. Calcified plaque of the thoracic aorta. Left subclavian pacer. No pneumothorax, pleural effusion or overt pulmonary edema. Mild chronic interstitial coarsening. Degenerative changes of the shoulders and spine. IMPRESSION: No acute process. ACT 112: Negative or not required by law. The above report was generated using voice recognition software. It may contain grammatical, syntax or spelling errors. Electronically signed by: Darell Jarrett M.D. 03/04/2020 2:32 PM Dictated: 03/04/20 1431Transcribed: 03/04/20 1431 [facility], [id number] CT Scan Report Patient: TONY VASQUEZ Date: 03/04/20#: [id number]: [facility] ID:[id number]: [facility] Zip: [place], [place] [address]Tmw: 89Location: EDSex: MRoom/Bed:Att Phy:Diagnosis: FALL, ABRASION TO ARMPri Phy: ElroftService Date: 03/04/20Fa Phy:Interpreting Phy: Evangelista Almaraz MDAdmit Phy: Ordering Phy: Seun Ibarra MD cc: ~ CT SCAN OF THE BRAIN WITHOUT IV CONTRAST CLINICAL HISTORY: Fall. COMPARISON STUDY: CT of the brain dated 02/24/2020. TECHNIQUE: Unenhanced axial CT scan of the brain is performed from the vertex to the skull base. A dose lowering technique was utilized adhering to the principles of ALARA. CT DOSE: 1138.94 mGycm FINDINGS: Brain parenchyma: There are small and predominantly low attenuation bilateral extra-axial fluid collections which are new from 02/24/2020 and consistent with subdural hemorrhages. This measures up to 10 mm along the right convexity and up to 8 mm along the left convexity. This causes minimal mass effect on the subjacent cortical sulci. There are age-related involutional changes noting mild subcortical and periventricular microangiopathic change. There is no parenchymal hematoma, midline shift, or evidence of acute territorial ischemia by CT criteria. Roach-white matter differentiation is preserved. A calcification is again seen in the right cerebellar hemisphere. Ventricles, sulci, cisterns: Prominent secondary to involutional change. Intracranial vasculature: There is atherosclerotic calcification of the cavernous carotid and vertebral arteries. Calvarium: The skeletal structures are osteopenic. There is no depressed calvarial fracture. Sinuses and mastoids: There is mild mucosal thickening in the right frontal and the anterior right ethmoid sinuses. The remaining visualized paranasal sinuses are clear. There are trace mastoid effusions. Orbits: The bony orbits are grossly intact. IMPRESSION: 1. There are acute to subacute bilateral low-attenuation subdural hemorrhages as above which are new from 02/24/2020. 2. These cause minimal mass effect on the subjacent cortical sulci. 3. There is no parenchymal hematoma, midline shift, or evidence of acute territorial ischemia by CT criteria. ACT 112: Negative or not required by law. Electronically signed by: Evangelista Almaraz M.D. 03/04/2020 1:44 PM Dictated: 03/04/20 1339Transcribed: 03/04/20 1339 [facility], [id number] CT Scan Report Patient: TONY VASQUEZ Date: 03/04/20#: [id number]: 150 [facility] by [facility] ID:[id number]: [facility] INSTITUTEROFTBir Date: [address] [place] [address] Zip: [place], [place] [address]Hke: Location: EDSex: MRoom/Bed:Att Phy:Diagnosis: FALL, ABRASION TO ARMPri Phy: [facility]Service [facility]: [facility]20[facility] Phy:Interpreting Phy: Mina JarrettAdmit Phy: Ordering Phy: Seun Ibarra MD cc: ~ CT cervical spine wo con CLINICAL HISTORY: 89 years-old Male with Pt c/o fall. Acute head and neck injury status post fall COMPARISON: CT head of same day, CT cervical spine 11/28/2019 TECHNIQUE: Multiple axial CT images of the cervical spine were obtained without contrast. A dose lowering technique was utilized adhering to the principles of ALARA. FINDINGS: Degenerative bony fusion of the C2-C4 and C5-C7 vertebral bodies redemonstrated. Demineralized appearance of the bones. Unchanged 2 mm anterolisthesis C4 on C5 with severe facet arthrosis. Mild convex right curvature of the midthoracic spine. No acute fracture or subluxation. Trace mastoid effusions. Left subclavian pacer. There is no prevertebral edema. Calcified plaque of the carotid bulbs. IMPRESSION: No acute fracture or subluxation. ACT 112: Negative or not required by law. The above report was generated using voice recognition software. It may contain grammatical, syntax or spelling errors. Electronically signed by: Darell Jarrett M.D. 03/04/2020 1:56 PM Dictated: 03/04/20 1350Transcribed: 03/04/20 1356 ECG Data Attestation: I personally reviewed and interpreted this ECG as follows: Indication: + other (Trauma) Rate (beats per minute): 81 Rhythm: + other (Ventricular paced rhythm) ECG [place]: + Normal ECG ST segments: no ST depression and no ST elevation Comparison ECG Date: from (03/16/2019) [facility] Narrative Patient was seen and evaluated as above in room B12. Review was performed of nursing notes and vital signs. I did review pertinent previous visits and patient history. After obtaining a thorough history and physical examination the above work up was performed. This is an 89-year-old male who presents emergency department after a ground- level fall. The patient reportedly landed on his buttock after missing a chair. Per EMS the patient did not hit his head. Upon arrival to the emergency depar tme the patient was sent for CAT scan of the head which was concerning for bilateral subdural hematomas. The patient's son is present. He believes that the patient is at his baseline. I gave the son the option of sending the patient to a tertiary care center for neurosurgical evaluation however the tertiary care centers are full due to the pandemic. I did give the son the option of discussing the case with the neurosurgeon. He is in agreement with this the son however does note that the patient is a DNR/DNI and feels that his father is a poor candidate for surgical intervention. I do also agree with this. I did discuss the case with the neurosurgeon on-call in [place] who recommended a palliative care consult for the patient as well as Gamaliel. I did discuss this with the patient's son. He is in agreement to have the patient admitted to the hospitalist service. While in the department, I personally reevaluated the patient several times and each time the patient was found to be resting comfortably. The patient was educated upon management, educated upon todays findings/results, educated upon importance of follow up from today's visit, educated upon symptoms in which to r eturn, had questions answered prior to discharge, verbalized understanding, and was discharged home in good condition. An order was placed for continuous cardiac monitoring. The monitor shows a rate of 59 with paced rhythm. The patient was evaluated during the global COVID-19 pandemic, and that diagnosis was suspected/considered upon their initial presentation. Their evaluation, treatment and testing was consistent with current guidelines for patients who present with complaints or symptoms that may be related to COVID- 19. Impression & Plan Fall Discharge Plan Visit Data Chief Complaint: Fall Stated Complaint: FALL, ABRASION TO ARM ED Provider: Seun Ibarra Discharge Problem: Fall Patient Disposition: Admitted As Inpatient Discharge Instructions Interventions: ED Discharge Assessment Last Done: 03/04/20 16:46 Discharge Problem: Fall Qualifiers: Encounter type: initial encounter Qualified Code(s): W19.XXXA - Unspecified fall, initial encounter
--- NOTE | 2020-03-05 20:05 | Hospitalist Progress Note ---
Date of Service March 05, 2020 Assessment & Plan (1) Subdural hematoma, acute: (2) Fall: This is an 89-year-old male who is significant past medical history of advanced dementia, nonischemic cardiomyopathy, biventricular cardiac pacemaker in situ, systolic CHF, HTN, CKD stage III, LBBB, AAA, monoclonal paraproteinemia who presents to ED status post fall. CT head showed acute to subacute bilateral low-attenuation subdural hemorrhages as above which are new from 02/24/2020. ED provider spoke with neurosurg at [place] who felt surgical intervention not warranted given pt comorbidities and advanced dementia. Neurosurg at [place] recommended IV keppra 500mg BID for seizure prophylaxis Neuro on board and recommended no clinical evidence of seizure so no real need for the Keppra, will consider to d/c Repeat CT head showed slightly decreased size of the bilateral low attenuating subdural collections suggestive of subacute hematomas with no midline shift. Palliative care met with son and plan to return the patient to [facility] with Hospice Services Continue fall precaution (3) HTN (hypertension): BP controlled continue coreg (4) Cardiac pacemaker in situ: pacemaker in place given fall and unknown if syncope will interrogate pacer (5) CKD (chronic kidney disease) stage 3, GFR 30-59 ml/min: Creatinine stable (6) Dementia: Arteriosclerotic dementia with delusional features Continue Remeron (7) HLD (hyperlipidemia): continue statin (8) Hereditary hemochromatosis: H&H stable at 14.8 and 43.7 on admission (9) DVT prophylaxis: SCD/teds Avoid chemical prophylaxis in setting of SDH Disposition plan to discharge to [facility] on Hospice care Admission and Anticipated Discharge Date Admission Date: March 04, 2020 Subjective Pt was seen and examined Lying in bed with no distress Speech is very soft and was not able to follow command Denies any pain Physical Exam Physical Exam: General- No acute distress Eyes- PERRL, unable to follow my finger ENT- oropharynx clear Lungs- coarse BS Heart- regular rhythm; no murmur Abdomen- normal bowel sounds, soft, nontender Extremities- no calf tenderness Neuro- awake, move extremities Skin- warm & dry Results & Data Results & Data ([facility]) Vital Signs (Past 12 Hours) Vital Signs Temp Pulse Resp BP Pulse Ox 03/05/20 16:00 36.4 C L 59 L 18 128/86 95 (1) Dementia Dementia behavioral disturbance: without behavioral disturbance Dementia type: unspecified type Qualified Code(s): F03.90 - Unspecified dementia without behavioral disturbance (2) HLD (hyperlipidemia) Hyperlipidemia type: unspecified Qualified Code(s): E78.5 - Hyperlipidemia, unspecified (3) HTN (hypertension) Hypertension type: essential hypertension Qualified Code(s): I10 - Essential (primary) hypertension (4) Fall Encounter type: initial encounter Qualified Code(s): W19.XXXA - Unspecified fall, initial encounter
[2020-03-05] MEDS: MIRTAZAPINE TAB 15 MG TAB PO SCH ×2 (21:24)
[2020-03-06] MEDS: carvediloL 6.25 MG TAB PO SCH (08:09)
[2020-03-06] MEDS: SIMVASTATIN 20 MG TAB PO SCH (08:09)
[2020-03-06] MEDS: levETIRAcetam 500 MG in 0.9 % SODIUM CHLORIDE 100 ML IV SCH (09:58)
--- NOTE | 2020-03-06 12:52 | Discharge Summary ---
Date of Service March 06, 2020 Admission HPI Per Admitting Provider This is an 89-year-old male who is significant past medical history of advanced dementia, nonischemic cardiomyopathy, biventricular cardiac pacemaker in situ, systolic CHF, HTN, CKD stage III, LBBB, AAA, monoclonal paraproteinemia who presents to ED status post fall. History provided by son as patient unable to provide history given advanced dementia. Son was alerted by [facility] that patient sustained a fall today. He was therefore brought to ED for further evaluation. CT head revealed acute to subacute bilateral low-attenuation subdural hemorrhages with minimal mass-effect on subjacent cortical sulci. Of significance patient recently hospitalized 01/17-01/20 secondary to acute hypoxic respiratory failure in setting of rhinovirus. He was then discharged back to [facility]. He does have history of frequent falls. At baseline he is ambulatory without assist device. Son states he was a prior, "[place]." According to son prior to today he has been very mobile. 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 At baseline he typically has a good appetite eats, "liver and onions every Monday night." ROS unobtainable from patient given current condition. Admission Exam Per Admitting Provider Constitutional: Elderly, thin, cachectic, male, vitals as above, NAD, sitting up in bed, verbalizes but difficult to understand Head: Mild temporal wasting, normocephalic, Atraumatic Eyes: PERRL, conjunctivae normal, anicteric sclerae ENMT: external ear and nose normal, oropharynx normal, dry mucous membrane Neck: trachea midline, no thyromegaly normal visual inspection Respiratory: normal respiratory effort, lungs clear to auscultation, no wheeze, rales, rhonchi. Normal insp/exp effort, no accessory muscle use Cardiovascular: RRR, no murmur, no edema Vessels: no JVD or carotid bruit Chest: Left anterior chest wall pacemaker noted otherwise normal inspection of chest Abdomen: normal bowel sounds, soft, nontender, no hepatosplenomegaly Musculoskeletal: no cyanosis or clubbing, left upper extremity clenched to chest wall, otherwise has active range of motion to all other extremities and strength 5/5 Skin: no rashes, warm and dry mild turgor Neurologic: PERRL, EOMI, accommodation nl, no face palsy, no dysarthria CN's II-XI intact bilaterally and moves all extremities Psychiatric: Alert but not oriented, euthymic affect : deferred Principal Diagnosis Subdural hematoma, acute: Fall: HTN (hypertension): Cardiac pacemaker in situ: CKD (chronic kidney disease) stage 3, GFR 30-59 ml/min: Dementia: HLD (hyperlipidemia): Hereditary hemochromatosis: Discharge Exam General- No acute distress Eyes- PERRL, unable to follow my finger ENT- oropharynx clear Lungs- coarse BS Heart- regular rhythm; no murmur Abdomen- normal bowel sounds, soft, nontender Extremities- no calf tenderness Neuro- awake, move extremities Skin- warm & dry Discharge Data Allergies Allergy/AdvReac Type Severity Reaction Status Date / Time No Known Allergies Allergy Verified 03/04/20 14:23 Consultations 03/04/20 14:24 ED Decision to Admit Stat 03/04/20 15:09 Consult Neurology Routine Consult Palliative Care Routine 03/04/20 17:16 Consult Case Management - Discharge Planning Routine Ordered Studies 03/04/20 13:03 CT cervical spine wo con Stat CT head/brain wo con Stat 03/05/20 08:00 CT head/brain wo con Routine CT head/brain wo con CLINICAL HISTORY: 89 years-old Male with repeat b/l SDH. All of study in a patient with bilateral subdural hematomas TECHNIQUE: Multiple axial CT images of the head were obtained without contrast. A dose lowering technique was utilized adhering to the principles of ALARA. CT DOSE: 614.27 mGy.cm COMPARISON: Head CT 03/04/2020. FINDINGS: Mildly motion degraded exam. Age-related involutional changes. Patchy white matter hypodensities suggest chronic microvascular ischemic disease. Cerebral vascular calcifications. Bilateral extra-axial subdural collections are redemonstrated measuring 8 mm on the right, unchanged and 7 mm on the left, previously 8 mm. There is no midline shift or new intracranial hemorrhage. No hydrocephalus or acute territorial infarct. No intracranial mass. No acute calvarial fracture. Mastoid air cells and middle ear cavities are clear. Mild mucosal thickening of the ethmoid air cells and nasal turbinates. IMPRESSION: 1. Stable to slightly decreased size of the bilateral low attenuating subdural collections suggestive of subacute hematomas. 2. No midline shift. ACT 112: Negative or not required by law. The above report was generated using voice recognition software. It may contain grammatical, syntax or spelling errors. Electronically signed by: Darell Jarrett M.D. 03/05/2020 8:19 AM Dictated: 03/05/20 0814Transcribed: 03/05/2014 XR pelvis 1-2V routine HISTORY: 89 years-old Male Pt c/o fall acute pelvic pain status post fall COMPARISON: Pelvis radiograph 11/28/2019 TECHNIQUE: AP view of the pelvis FINDINGS: Moderate right and mild left hip posterior arthritis redemonstrated. No acute fracture, dislocation or avascular necrosis. Vascular calcifications. IMPRESSION: No acute fracture or dislocation. ACT 112: Negative or not required by law. The above report was generated using voice recognition software. It may contain grammatical, syntax or spelling errors. Electronically signed by: Darell Jarrett M.D. 03/04/2020 2:30 PM Dictated: 03/04/20 1429Transcribed: 03/04/20 142 XR chest 1V portable HISTORY: 89 years-old Male Pt c/o head bleed acute chest and head trauma COMPARISON: Chest radiograph 01/18/2020 TECHNIQUE: Portable AP view of the chest FINDINGS: Moderate enlargement of the cardiac silhouette. Calcified plaque of the thoracic aorta. Left subclavian pacer. No pneumothorax, pleural effusion or overt pulmonary edema. Mild chronic interstitial coarsening. Degenerative changes of the shoulders and spine. IMPRESSION: No acute process. ACT 112: Negative or not required by law. The above report was generated using voice recognition software. It may contain grammatical, syntax or spelling errors. Electronically signed by: Darell Jarrett M.D. 03/04/2020 2:32 PM Dictated: 03/04/20 1431Transcribed: 03/04/[address] SCAN OF THE BRAIN WITHOUT IV CONTRAST CLINICAL HISTORY: Fall. COMPARISON STUDY: CT of the brain dated 02/24/2020. TECHNIQUE: Unenhanced axial CT scan of the brain is performed from the vertex to the skull base. A dose lowering technique was utilized adhering to the principles of ALARA. CT DOSE: 1138.94 mGycm FINDINGS: Brain parenchyma: There are small and predominantly low attenuation bilateral extra-axial fluid collections which are new from 02/24/2020 and consistent with subdural hemorrhages. This measures up to 10 mm along the right convexity and up to 8 mm along the left convexity. This causes minimal mass effect on the subjacent cortical sulci. There are age-related involutional changes noting mild subcortical and periventricular microangiopathic change. There is no parenchymal hematoma, midline shift, or evidence of acute territorial ischemia by CT criteria. Roach-white matter differentiation is preserved. A calcification is again seen in the right cerebellar hemisphere. Ventricles, sulci, cisterns: Prominent secondary to involutional change. Intracranial vasculature: There is atherosclerotic calcification of the cavernous carotid and vertebral arteries. Calvarium: The skeletal structures are osteopenic. There is no depressed calvarial fracture. Sinuses and mastoids: There is mild mucosal thickening in the right frontal and the anterior right ethmoid sinuses. The remaining visualized paranasal sinuses are clear. There are trace mastoid effusions. Orbits: The bony orbits are grossly intact. IMPRESSION: 1. There are acute to subacute bilateral low-attenuation subdural hemorrhages as above which are new from 02/24/2020. 2. These cause minimal mass effect on the subjacent cortical sulci. 3. There is no parenchymal hematoma, midline shift, or evidence of acute territorial ischemia by CT criteria. ACT 112: Negative or not required by law. Electronically signed by: Evangelista Almaraz M.D. 03/04/2020 1:44 PM Dictated: 03/04/209Transcribed: 03/04/[address] cervical spine wo con CLINICAL HISTORY: 89 years-old Male with Pt c/o fall. Acute head and neck injury status post fall COMPARISON: CT head of same day, CT cervical spine 11/28/2019 TECHNIQUE: Multiple axial CT images of the cervical spine were obtained without contrast. A dose lowering technique was utilized adhering to the principles of ALARA. FINDINGS: Degenerative bony fusion of the C2-C4 and C5-C7 vertebral bodies redemonstrated. Demineralized appearance of the bones. Unchanged 2 mm anterolisthesis C4 on C5 with severe facet arthrosis. Mild convex right curvature of the midthoracic spine. No acute fracture or subluxation. Trace mastoid effusions. Left subc lavian pacer. There is no prevertebral edema. Calcified plaque of the carotid bulbs. IMPRESSION: No acute fracture or subluxation. ACT 112: Negative or not required by law. The above report was generated using voice recognition software. It may contain grammatical, syntax or spelling errors. Electronically signed by: Darell Jarrett M.D. 03/04/2020 1:56 PM Dictated: 03/04/20 1350Transcribed: 03/04/20 1356 Hospital Course (1) Subdural hematoma, acute: (2) Fall: This is an 89-year-old male who is significant past medical history of advanced dementia, nonischemic cardiomyopathy, biventricular cardiac pacemaker in situ, systolic CHF, HTN, CKD stage III, LBBB, AAA, monoclonal paraproteinemia who presents to ED status post fall. CT head showed acute to subacute bilateral low-attenuation subdural hemorrhages as above which are new from 02/24/2020. ED provider spoke with neurosurg at [place] who felt surgical intervention not warranted given pt comorbidities and advanced dementia. Neurosurg at [place] recommended IV keppra 500mg BID for seizure prophylaxis Neuro on board and recommended no clinical evidence of seizure so no real need for the Keppra, will consider to d/c Repeat CT head showed slightly decreased size of the bilateral low attenuating subdural collections suggestive of subacute hematomas with no midline shift. Palliative care met with son and plan to return the patient to [facility] with Hospice Services Continue fall precaution (3) HTN (hypertension): BP controlled continue coreg (4) Cardiac pacemaker in situ: pacemaker in place given fall and unknown if syncope will interrogate pacer (5) CKD (chronic kidney disease) stage 3, GFR 30-59 ml/min: Creatinine stable (6) Dementia: Arteriosclerotic dementia with delusional features Continue Remeron (7) HLD (hyperlipidemia): continue statin (8) Hereditary hemochromatosis: H&H stable at 14.8 and 43.7 on admission (9) DVT prophylaxis: SCD/teds Avoid chemical prophylaxis in setting of SDH Disposition plan to discharge to [facility] on Hospice care Total Time Total Time Spent Total Time Spent (In Minutes): 35 minutes Total Time Includes: Examination of the Patient, Discharge Planning, Medication Reconciliation, Communication With Other Providers and Other Discharge Plan Discharge Items Patient Disposition: [facility] Reason For Visit: BILATERAL SUBDURAL HEMATOMA Discharge Diagnosis: Subdural hematoma, acute: Fall: HTN (hypertension): Cardiac pacemaker in situ: CKD (chronic kidney disease) stage 3, GFR 30-59 ml/min: Dementia: HLD (hyperlipidemia): Hereditary hemochromatosis: Activity: As commented below Non-emergency contact: Primary Care Provider Call non-emergency contact if: you have any medication questions Follow-up/Referrals: Tawanda, [Primary Care Provider] - Diet: Regular Liquid Consistency: Merlin thick Addtl Attending Provider Instructions: Discharge to [facility] on Hospice Follow up with the provider at [facility] Fall precaution Continue soft bite sized diet and nectar thick liquid Aspiration precaution Pending Studies at Discharge: No Stand-Alone Forms: My [facility] [employer] Digital Skilled Items Patient informed of condition?: Yes DNR: Yes Discharge Level of Care: Other Communicable Disease: No Discharge Prognosis: Stable Lines: None Urinary Catheter: No Medications and DC Order Prescriptions: Continued carvedilol 6.25 mg tablet 6.25 mg PO BID RF: 0 cholecalciferol (vitamin D3) 1,000 unit Tablet 1,000 unit PO QAM RF: 0 cyanocobalamin (vitamin B-12) 1,000 mcg Tablet 1,000 mcg PO QAM RF: 0 simvastatin 20 mg tablet 20 mg PO QAM RF: 0 acetaminophen [Tylenol Extra Strength] 500 mg Tablet 1,000 mg PO Q8H MDD 3 GRAM/24 HOURS PRN (Reason: Fever Or Pain) RF: 0 mirtazapine 15 mg tablet 15 mg PO HS RF: 0 mirtazapine 7.5 mg tablet 7.5 mg PO HS RF: 0 diclofenac sodium 1 % gel 2 g TOPICAL QID PRN (Reason: Pain) RF: 0 Discharge Orders: Discharge Order (Routine); Ordered 03/06/20 Ordered By: Hannah Cormier Admission Data Admit Date/Time: 03/04/20 14:48 Attending Provider: Hannah Cormier Admit Provider: Benjamin Reddy Primary Care Provider: Tawanda, Other Providers: Stevie Ortiz ; Lacie Hogue ; Benjamin Reddy Other Interventions: Discharge Summary Assessment (RN) Last Done: 03/06/20 12:37
== END 2020-03-06 13:29 | disposition home or self-care (01) | DRG 86 ==
LOC: ED 12:47 → SUATTDRO 14:48 → 2W 14:48